=== PATIENT | female | born 1930 | race Caucasian/White ===

== ENCOUNTER 2016-09-05 11:24 | Inpatient (IN) | payer MEDICARE, OTHER ==
[2016-09-05] VITALS (11 sets, daily range): BP systolic 123–155; BP diastolic 67–86; PULSE 72–88; RESP 16–20; O2SAT 85–97
[~2016-09-05] VITALS: Ht 167.6 cm; Wt 58.6 kg
[~2016-09-05 11:24] MED LIST: ACIDOPHILUS PROB1 M1 PO; ALBU8.5H2 INHALATION; ASCO100089 PO; ASPI-973 PO; ATOR10TA66 PO; CA C1TAB35 PO; CARV25TA2 PO; Hydrocortisone TOPICAL; LEVO500T16 PO; LOSA50TA37 PO; Loratadine PO; MULT-1052 PO; OMEP20CA11 PO; PRED-508 PO; SALM1CAP4 PO; SIME180C36 PO; VIT1CAPS27 PO
--- NOTE | 2016-09-05 11:38 | ED.REPORT ---
HPI-General Illness Date of Service Sep 05, 2016 ED Provider: Luis Alberto Jain DO 85 year old female with a history of cardiomyopathy and cardiac catheterization presents to the ER complaining of several months of shortness of breath. Symptoms are exacerbated by minimal exertion. She reports a bout of pneumonia in May 2016, and states that she has had difficulty breathing ever since. Patient denies productive cough, fever, chest pain, atypical lower extremity swelling, abdominal pain, nausea, vomiting, diarrhea, and UTI symptoms. She was seen by her PCP Dr. Gant earlier today, who referred her to the ER after noticing new LBBB on her ECG. Dr. Gant also reports decreased O2 saturation in the 80's with ambulation. Nursing Notes Stated Complaint: SOB Chief Complaint: Respiratory Complaints Nursing Notes Reviewed: Yes Allergies: Coded Allergies: Contrast Media (Verified Allergy, Severe, "red, itchy", 09/05/16) adhesive tape (Verified Allergy, Severe, RASH, 09/05/16) lisinopril (Verified Adverse Reaction, Severe, cough, 09/05/16) Scheduled Ascorbic Acid (Vitamin C) 1,000 Mg Tab.chew 1,000 MG PO DAILY Aspirin (Aspirin) 81 Mg Tablet 81 MG PO DAILYWD Atorvastatin Calcium (Atorvastatin Calcium) 10 Mg Tablet 10 MG PO HS Ca Carb/D3/Argnin/Inos/Silicon (Bone Density Calcium + D Cplt) 1 Each Tablet 3 EACH PO DAILY Carvedilol (Carvedilol) 25 Mg Tablet 25 MG PO BID Lactobacillus Acidophilus (Acidophilus Probiotic) 1 Mg Tablet 1 MG PO DAILY Losartan Potassium (Losartan Potassium) 50 Mg Tablet 50 MG PO BID Multivit-Min/FA/Lutein/Zeaxant (Macular Vitamin Tablet) 1 Each Tablet 2 EACH PO BID [place] Oil/[place]-3 Fatty Acids ([place] Oil 1,000 mg Softgel) 1 Each Capsule 1 EACH PO DAILY Ubidecarenone (Coq-10) 100 Mg Capsule 100 MG PO DAILY Vit C/Kiara AC/Lut/Copper/Znox (Preservision Lutein Softgel) 1 Each Capsule 1 EACH PO BID Scheduled PRN Fluticasone Propionate (Fluticasone Propionate Nasal) 16 Gm [place].susp 1 SPRAY NASAL DAILY PRN PRN allergies Omeprazole (Omeprazole) 20 Mg Capsule.dr 20 MG PO DAILY PRN PRN For Indigestion Simethicone (Gas Relief) 180 Mg Capsule 180 MG PO BID PRN PRN GAS General Time Seen by MD: 11:33 Chief Complaint Breathing problem Hx Obtained From: Patient Arrived By: Walk-in Sudden in Onset?: No Onset Occurred: More than a week ago... (5 months) Symptom Duration: Intermittent Associated with: Denies: Abdominal pain, Cough, Fever, Nausea, Vomiting Pertinent Negative: Pt denies other symptoms Similar Sx Previous: Yes Past Medical History Past Medical History R knee arthritis Cardiomyopathy Reports: GERD, Hyperlipidemia Past Surgical History Cardiac catheterization Smoking History Former Smoker Ambulatory Status Independent Review of Systems Full Review of Systems Constitutional: Denies: Chills, Fever Respiratory: Reports: Dyspnea on exertion, Shortness of breath, Denies: Non-productive cough, Prod cough, bloody, Prod cough, brown, Prod cough, clear, Prod cough, green, Prod cough, white, Prod cough, yellow Cardiovascular: Denies: Chest pain GI: Denies: Abdominal pain, Diarrhea, Nausea, Vomiting Female: Denies: Dysuria, Flank pain, Pelvic pain, Urinary frequency, Urinary urgency, Vaginal bleeding - abnl, Vaginal discharge Musculoskeletal: Denies: Extremity swelling Complete sys rev & neg: except as marked. Physical Exam Vital Signs Vital Signs Date Time Temp Pulse Resp B/P Pulse Ox O2 Delivery O2 Flow Rate FiO2 09/05/16 14:47 93 Nasal Cannula 3 09/05/16 14:46 74 19 85 Room Air 09/05/16 14:00 36.8 76 20 136/76 94 Room Air 09/05/16 11:37 36.8 80 17 146/86 97 Room Air Initial VS: Reviewed Head / Eyes: Atraumatic, Normocephalic Neck: Supple, Non-tender, Full range of motion Abdomen / GI: Soft, Non-tender, No guarding, No rebound, No distention Extremities: Vascular intact, Neuro intact, No swelling, No tenderness Skin: Warm, Dry, No cyanosis Neurologic: Alert, Oriented, Nonfocal Psychiatric: Mood/affect normal, Behavior normal, Normal thought content General/Constitutional: Awake, Alert, Well developed, Well nourished Respiratory / Chest: Breath sounds NL, No respiratory distress, No rhonchi, No wheezing Faint rales in the left lung base. Cardiovascular: Heart rate NL, Regular rhythm, Heart sounds NL, Cap refill not delayed, Peripheral circulation NL Interpretation & Diagnostics Lab Results Interpretation Result Diagram: 09/05/16 1255 09/05/16 1255 Test 09/05/16 12:55 09/05/16 13:37 White Blood Count 7.5th/mm3 (3.8-10.1) Red Blood Count 4.41mil/mm3 (3.90-5.20) Hemoglobin 13.0g/dL (12.0-15.6) Hematocrit 41.5% (35.0-46.0) Mean Corpuscular Volume 94.1fL (81-100) Mean Corpuscular Hemoglobin 29.5pg (27.0-35.0) Mean Corpuscular Hemoglobin Concent 31.3% (32.0-37.0) Red Cell Distribution Width 15.6% (12.3-15.4) Platelet Count 121bil/L (150-400) Neutrophils (%) (Auto) 64.1% (40-74) Lymphocytes (%) (Auto) 28.0% (14-46) Monocytes (%) (Auto) 6.0% (4-12) Eosinophils (%) (Auto) 1.1% (0-5) Basophils (%) (Auto) 0.4% (0-3) D-Dimer 0.76mg/L FEU (<0.50) Sodium Level 142mEq/L (134-144) Potassium Level 4.2mEq/L (3.5-5.2) Chloride Level 104mEq/L (97-108) Carbon Dioxide Level 29mmol/L (18-29) Blood Urea Nitrogen 17mg/dL (8-27) Creatinine 0.48mg/dL (0.57-1.00) Estimat Glomerular Filtration Rate 175mL/min (>59) Glucose Level 91mg/dL (60-99) Calcium Level 8.7mg/dL (8.5-10.1) Magnesium Level 2.1mg/dL (1.6-2.6) Total Bilirubin 1.1mg/dL (0.0-1.2) Aspartate Amino Transf (AST/SGOT) 28U/L (0-50) Alanine Aminotransferase (ALT/SGPT) 25U/L (0-32) Alkaline Phosphatase 70U/L (25-165) Troponin T < 0.010ug/L (0.0-0.011) Pro-B-Type Natriuretic Peptide 2454pg/mL (0-738) Total Protein 6.2g/dL (6.4-8.4) Albumin 3.7g/dL (3.4-5.0) Procalcitonin 0.03ng/mL (0.00-0.08) Hold Urine Received (Received) ECG Interpretation ECG Interpretation: Sinus rhythm LVH Lateral ST depressions Time: 11:59 Interpreted by: ED physician X-Ray Chest Interpretation Chest Xray Interpretation: IMPRESSION: Mild cardiomegaly and left basilar atelectasis. Dictated by: Pili Jean M.D. on 09/05/2016 at 12:25 Approved by: Pili Jean M.D. on 09/05/2016 at 12:26 View: AP & lat Interpretation / Wet Read by: Interpret - Radiologist CT Chest Interpretation IMPRESSION: 1. No evidence for central pulmonary embolism. 2. A 2.9 x 2.8 cm mass or masslike infiltrate in the right upper lobe. Differential diagnoses include pneumonia and neoplasm (adenocarcinoma in situ). Recommend short interval followup CT after adequate treatment. If the abnormality persists, a PET/CT may be helpful for further evaluation. 3. Moderate emphysema. 4. Small pleural effusions and bibasilar atelectasis. 5. Heterogeneous appearance of thyroid gland is a calcified nodule. Recommend non-emergent thyroid ultrasound for further evaluation. 6. Mild cardiomegaly. Dictated by: Pili Jean M.D. on 09/05/2016 at 14:37 Approved by: Pili Jean M.D. on 09/05/2016 at 14:55 Study type: CT pulm angiogram Interpretation / Wet Read by: Interpret - Radiologist Re-Eval/Medical Decision Med Decision/Clinical Course Likely multifactorial hypoxia, question of a mass or masslike infiltrate in the right upper lobe, for this Rocephin and azithromycin given, patient also has a known cardiomyopathy with elevated proBNP as well as emphysematous changes on CT. Patient will be admitted for further delineation as to the cause of her hypoxia. It should be noted that she had an allergic reaction to IV contrast after receiving a CT of her chest. It was a diffuse urticarial rash of her chest and arms which improved significantly after treatment with Benadryl. Source of Hx: Old records Time of Eval: 14:44 Re-Evaluation/Progress Note: O2 saturation 86% at rest. Updated patient on the plan of care and need for admission. Patient is amenable to the plan. All other questions addressed. Time of Eval: 14:52 Re-Evaluation/Progress Note: Diffuse urticaria to the chest and arms. Patient denies any throat discomfort, respiratory distress, and itching. Time of Eval: 14:57 Evaluation: Capillary refill normal, Normal peripheral pulses, Lungs clear, Mental status normal, Neurologic nonfocal Time of Eval: 15:14 Re-Evaluation/Progress Note: Her rash is not worsening. Time of Eval: 15:36 Re-Evaluation/Progress Note: Patient's rash is improved. Consultation : Referral / Consult Name: Nata Redman DO Consulted With: Hospitalist Call Returned at: 16:00 Nursing Admin: Agrees with eval, Agrees with plan, Accepts admit Counseled Regarding: Diagnosis, Lab results, Need for admission Discharge & Departure Primary Impression: Hypoxia Disposition: ADMITTED TO HOSPITAL Discharge Condition All VS Reviewed: Yes Condition: Stable Referrals: Emy Gant MD (PCP) Serena[place]wyatt Attestation Portions of this note were transcribed by Glenis Becker. I, Dr. Jain, personally performed the history, physical exam and medical decision-making; I reviewed and confirmed the accuracy of the information in the transcribed note. Signed by: Lea Bowles, 09/05/2016 and 16:02 copies to: Emy Gant MD, Timothy S DO Sep 05, 2016 11:38 GLENIS BECKER Sep 05, 2016 11:46
--- NOTE | 2016-09-05 12:27 | DRSVH ---
PROCEDURE: X-RAY CHEST, TWO VIEWS ([id number]) INDICATIONS: dyspnea on exertion TECHNIQUE: 2 views of the chest were acquired. COMPARISON: [facility], CR, XR CHEST 2VW, 07/01/2016, 10:13. FINDINGS: Surgical changes and devices: None. Lungs and pleura: Left basilar atelectasis and bilateral interstitial prominence. No pleural effusio ns or pneumothorax. Lungs are clear. Mediastinum: Mediastinal contours are normal. Heart size is prominent. Bones and chest wall: No suspicious bony abnormalities. Soft tissues appear unremarkable. IMPRESSION: Mild cardiomegaly and left basilar atelectasis. Dictated by: Pili Jean M.D. on 09/05/2016 at 12:25 Approved by: Pili Jean M.D. on 09/05/2016 at 12:26
[2016-09-05 13:11] LABS: BASOPHILS % (AUTO) 0.4 % (0-3); EOSINOPHILS % (AUTO) 1.1 % (0-5); Mean Corpuscular Hemoglobin 29.5 pg (27.0-35.0); Mean Corpuscular Volume 94.1 fL (81-100); NEUTROPHILS % (AUTO) 64.1 % (40-74); Platelet Count 121 bil/L (150-400)
[2016-09-05 13:43] LABS: Magnesium 2.1 mg/dL (1.6-2.6); TROPONIN T < 0.010 ug/L (0.0-0.011)
[2016-09-05] MEDS ORDERED: Famotidine 10 mg/mL 2 mL Inj IVPUSH ONE (14:55)
[2016-09-05] MEDS ORDERED: MethylprednisoLONE Sodium Succinate 62.5 mg/mL 2 mL Inj IVPUSH ONE (14:55)
[2016-09-05] MEDS ORDERED: diphenhydrAMINE 25 mg Capsule PO ONE (14:55)
--- NOTE | 2016-09-05 14:57 | DRSVH ---
PROCEDURE: CT ANGIO CHEST PULMONARY EMBOLISM ([id number]) INDICATIONS: dyspnea, elevated troponin TECHNIQUE: After the administration of intravenous contrast, 2 mm thick sections acquired from the pulmonary api rashard to the posterior costophrenic angles. 3-dimensional maximum intensity projection (MIP) coronal a nd sagittal reformats were then acquired through the thorax. For radiation dose reduction, the follo wing was used: automated exposure control, adjustment of mA and/or kV according to patient size. COMPARISON: [facility], CR, XR CHEST 2VW, 09/05/2016, 12:03. [facility], CT, CT ANGIO CHEST PE, 05/29/2016, 14:55. FINDINGS: Image quality: Excellent. Pulmonary arteries: Pulmonary arteries are normal in size, and demonstrate no intraluminal filling d efects to suggest central pulmonary embolism. Lungs and pleura: There is a mass or masslike infiltrate in the right upper lobe medially measuring 2 .9 x 2.8 cm, which is unchanged from . There is moderate centrilobular emphysema. There is a small pleural effusions. Bibasilar opacities are most likely atelectasis. No pleural effusions or p neumothorax. Central and peripheral airways are patent. Mediastinum: Heart is probably enlarged. No pericardial effusion. No mediastinal or hilar adenopath y. Thoracic aorta is normal in caliber and enhancement. Esophagus is normal in caliber, without hia dawood hernia. Bones and chest wall: No suspicious bony lesions. Ribs and thoracic spine appear intact throughout. Thyroid gland is heterogeneous. There is a calcified nodule in the right lower lobe. No axillary o r supraclavicular adenopathy. Abdomen: Visualized upper abdominal solid organs appear normal in the early arterial phase of enhanc ement. IMPRESSION: 1. No evidence for central pulmonary embolism. 2. A 2.9 x 2.8 cm mass or masslike infiltrate in the right upper lobe. Differential diagnoses include pneumonia and neoplasm (adenocarcinoma in situ). Recommend short interval followup CT after adequate treatment. If the abnormality persists, a PET/CT may be helpful for further evaluation. 3. Moderate emphysema. 4. Small pleural effusions and bibasilar atelectasis. 5. Heterogeneous appearance of thyroid gland is a calcified nodule. Recommend non-emergent thyroid ul trasound for further evaluation. 6. Mild cardiomegaly. Dictated by: Pili Jean M.D. on 09/05/2016 at 14:37 Approved by: Pili Jean M.D. on 09/05/2016 at 14:55
[2016-09-05] MEDS ORDERED: Furosemide 10 mg/mL 2 mL Inj IVPUSH ONE ×2 (15:15→15:40)
[2016-09-05] MEDS ORDERED: Albuterol 2.5 mg/3 mL Inhalation Solution NEB ONE (15:15)
[2016-09-05] MEDS ORDERED: Azithromycin Inj 500 MG in Dextrose 5% w/Vial Mate 250 ML IV ONE (15:15)
[2016-09-05] MEDS ORDERED: cefTRIAXone Inj 1,000 MG in Dextrose 5% Minibag Plus 50 ML IV ONE (15:15)
[2016-09-05] MEDS ORDERED: Famotidine 20 mg/50 mL NS Premix IV ONE (15:40)
[2016-09-05] MEDS ORDERED: Furosemide 10 mg/mL 4 mL Inj ONE (15:52)
[2016-09-05] MEDS ORDERED: Alum-Mag Hydrox-Simeth 30 mL Suspension PO PRN (16:10)
[2016-09-05] MEDS ORDERED: Ondansetron 2 mg/mL 2 mL Inj IVPUSH PRN (16:10)
[2016-09-05] MEDS ORDERED: FLUT16SP NASAL (16:17)
[2016-09-05] MEDS ORDERED: UBID100C16 PO (16:17)
[2016-09-05] MEDS: Sodium Chloride LOK Flush 10 mL Syringe IVFLUSH SCH (17:25)
[2016-09-05] MEDS ORDERED: Polyethylene Glycol (PEG) 17 Gm Powder PO PRN (17:25)
[2016-09-05] MEDS ORDERED: Albuterol 2.5 mg/3 mL Inhalation Solution NEB PRN (17:35)
[2016-09-05] MEDS ORDERED: Fluticasone 0.05% 15 Spray/2 Gm 16 Gm Nasal Spray NASAL PRN (17:35)
[2016-09-05] MEDS ORDERED: Furosemide 10 mg/mL 2 mL Inj IVPUSH SCH (18:00)
[2016-09-05 20:08] LABS: TROPONIN T < 0.010 ug/L (0.0-0.011)
[2016-09-05 20:12] LABS: Creatine Kinase 60 U/L (21-215)
--- NOTE | 2016-09-05 20:28 | PCM.HPMED ---
Subjective Date of Service Sep 05, 2016 Primary Provider: Admitting Physician: Nata Redman DO Primary Care Physician: Emy Gant MD Attending Physician: Nata Redman DO Admit Status: From the Emergency Department Chief Complaint: Exertional dyspnea and fatigue History of Present Illness: This is a 85-year-old female with past medical history of nonischemic dilated cardiomyopathy, recent pneumonia for which she is hospitalized here in May for 4 days, emphysema, GERD, hyperlipidemia, arthritis, mitral valve prolapse presenting to the ED with complaints of fatigue, exertional dyspnea, chest tightness. States that her symptoms have completely resolved after she completed a course of Levaquin from [facility]. She denies cough, back pain , orthopnea. She states her chest tightness is over her clavicle area. Denies numbness and tingling. Symptoms have been ongoing for approximately 1 week. Patient has taken a medications. She also denies fevers, chills, nausea, vomiting, diarrhea. In the ER chest x-ray showed cardiomegaly with bibasilar atelectasis, d-dimer was slightly elevated so CTA chest PE protocol was performed that showed no PE but did show some concern for bilateral effusions, thyroid nodule, right upper lobe mass or masslike size of 2.9 x 2.[address] scan follow-up is recommended. ProBNP is elevated 2000 454. Pro-calcitonin is not elevated at 0.03. Troponins are negative. Vital signs are stable EKG showed LVH, lateral ST depression patient is given 40 mg IV Lasix, Rocephin, Zithromax antibiotics. Patient states that he did not feel these medications quite helped her. Patient is a former smoker and she quit in 1971 after smoking for 20 years. She denies second hand smoking exposure. She does not believe she has COPD. Her echocardiogram was last performed on 10/13/2015 and showed an ejection fraction of 40-45% with diastolic dysfunction, LVH, mild global hypokinesis. A CTA PE protocol performed on 05/29/2016 showed moderate cardiomegaly, mild bibasilar pneumonia right and left. Her white count was normal in the ER. B UN is elevated at 17. Currently patient is resting comfortably in the room talking to relatives who came to visit. States that she has a POA and ST form that was filled out during her last visit but she does not have it with her. Patient is admitted to the [facility] for diastolic heart failure acute on chronic, and masslike findings on her CT of chest. Allergies Coded Allergies: Contrast Media (Verified Allergy, Severe, "red, itchy", 09/05/16) adhesive tape (Verified Allergy, Severe, RASH, 09/05/16) lisinopril (Verified Adverse Reaction, Severe, cough, 09/05/16) PMH Nonischemic dilated cardiomyopathy, pneumonia in May 2016, emphysema, GERD , lipidemia, arthritis, mitral valve prolapse, questionable irregular heart rate , hypertension Surgical History Cardiac catheterization, and knee replacement on the right side March 2016 Social History Hx Alcohol Use: Yes (has maybe 2 glasses of wine per month but none for the last 2 months) Hx Substance Use: No Hx Tobacco Use: No Smoking Status: Former Smoker Years of Smokin Living Arrangement: Alone Exam Vital Signs Vital Sign - Last Date Time Temp Pulse Resp B/P Pulse Ox O2 Delivery O2 Flow Rate FiO2 09/05/16 14:47 93 Nasal Cannula 3 09/05/16 14:46 74 19 09/05/16 14:00 36.8 136/76 Exam Gen.: No acute distress HEENT: Normocephalic, atraumatic Neck negative for JVD, thyromegaly Vascular: Negative for hepatojugular reflux Heart: Regular rate and rhythm negative for murmurs Abdomen soft, nontender normal bowel sounds Legs swelling in the right lower extremity Lungs right lower lobe and crackles negative for wheezing Neuro: No focal deficits Psychiatric negative for anxiety Lab and Diagnostics Labs Laboratory Tests Test 09/05/16 12:55 09/05/16 13:37 09/05/16 15:53 09/05/16 19:20 White Blood Count 7.5th/mm3 (3.8-10.1) Red Blood Count 4.41mil/mm3 (3.90-5.20) Hemoglobin 13.0g/dL (12.0-15.6) Hematocrit 41.5% (35.0-46.0) Mean Corpuscular Volume 94.1fL (81-100) Mean Corpuscular Hemoglobin 29.5pg (27.0-35.0) Mean Corpuscular Hemoglobin Concent 31.3% (32.0-37.0) Red Cell Distribution Width 15.6% (12.3-15.4) Platelet Count 121bil/L (150-400) Neutrophils (%) (Auto) 64.1% (40-74) Lymphocytes (%) (Auto) 28.0% (14-46) Monocytes (%) (Auto) 6.0% (4-12) Eosinophils (%) (Auto) 1.1% (0-5) Basophils (%) (Auto) 0.4% (0-3) D-Dimer 0.76mg/L FEU (<0.50) Sodium Level 142mEq/L (134-144) Potassium Level 4.2mEq/L (3.5-5.2) Chloride Level 104mEq/L (97-108) Carbon Dioxide Level 29mmol/L (18-29) Blood Urea Nitrogen 17mg/dL (8-27) Creatinine 0.48mg/dL (0.57-1.00) Estimat Glomerular Filtration Rate 175mL/min (>59) Glucose Level 91mg/dL (60-99) Calcium Level 8.7mg/dL (8.5-10.1) Magnesium Level 2.1mg/dL (1.6-2.6) Total Bilirubin 1.1mg/dL (0.0-1.2) Aspartate Amino Transf (AST/SGOT) 28U/L (0-50) Alanine Aminotransferase (ALT/SGPT) 25U/L (0-32) Alkaline Phosphatase 70U/L (25-165) Troponin T < 0.010ug/L (0.0-0.011) < 0.010ug/L (0.0-0.011) Pro-B-Type Natriuretic Peptide 2454pg/mL (0-738) Total Protein 6.2g/dL (6.4-8.4) Albumin 3.7g/dL (3.4-5.0) Procalcitonin 0.03ng/mL (0.00-0.08) Hold [place] Top Tube Received (Received) Received (Received) Hold Urine Received (Received) Total Creatine Kinase 60U/L (21-215) Creatine Kinase MB 2.4ng/mL (0.0-5.3) Creatine Kinase MB % % (0.0-5.0) Microbiology 09/05/16 Blood Culture, Received Pending Result Diagram: 09/05/16 1255 09/05/16 1255 X-Rays, CTs and MRIs [facility] Diagnostic [place] [address] Patient Name: KASSI WILLIS MR#: [id number] Location: [facility] [place] Ordering Phys: Susy LuisA lberto Pichardo Date of Service: 09/05/16 1342 PROCEDURE: CT ANGIO CHEST PULMONARY EMBOLISM ([id number]) INDICATIONS: dyspnea, elevated troponin TECHNIQUE: After the administration of intravenous contrast, 2 mm thick sections acquired from the pulmonary apices to the posterior costophrenic angles. 3-dimensional maximum intensity projection (MIP) coronal and sagittal reformats were then acquired through the thorax. For radiation dose reduction, the following was used: automated exposure control, adjustment of mA and/or kV according to patient size. COMPARISON: [facility], CR, XR CHEST 2VW, 09/05/2016, 12:03. [facility], CT, CT ANGIO CHEST PE, 05/29/2016, 14:55. FINDINGS: Image quality: Excellent. Pulmonary arteries: Pulmonary arteries are normal in size, and demonstrate no intraluminal filling defects to suggest central pulmonary embolism. Lungs and pleura: There is a mass or masslike infiltrate in the right upper lobe medially measuring 2.9 x 2.8 cm, which is unchanged from . There is moderate centrilobular emphysema. There is a small pleural effusions. Bibasilar opacities are most likely atelectasis. No pleural effusions or pneumothorax. Central and peripheral airways are patent. Mediastinum: Heart is probably enlarged. No pericardial effusion. No mediastinal or hilar adenopathy. Thoracic aorta is normal in caliber and enhancement. Esophagus is normal in caliber, without hiatal hernia. Bones and chest wall: No suspicious bony lesions. Ribs and thoracic spine appear intact throughout. Thyroid gland is heterogeneous. There is a calcified nodule in the right lower lobe. No axillary or supraclavicular adenopathy. Abdomen: Visualized upper abdominal solid organs appear normal in the early arterial phase of enhancement. IMPRESSION: 1. No evidence for central pulmonary embolism. 2. A 2.9 x 2.8 cm mass or masslike infiltrate in the right upper lobe. Differential diagnoses include pneumonia and neoplasm (adenocarcinoma in situ). Recommend short interval followup CT after adequate treatment. If the abnormality persists, a PET/CT may be helpful for further evaluation. 3. Moderate emphysema. 4. Small pleural effusions and bibasilar atelectasis. 5. Heterogeneous appearance of thyroid gland is a calcified nodule. Recommend non-emergent thyroid ultrasound for further evaluation. 6. Mild cardiomegaly. Dictated by: Pili Jean M.D. on 09/05/2016 at 14:37 Approved by: Pili Jean M.D. on 09/05/2016 at 14:55 [facility] Diagnostic [place] [address] Patient Name: KASSI WILLIS MR#: [id number] [place] [facility] [place] Ordering Phys: Luis Alberto Jain DO Date of Service: 09/05/16 1147 PROCEDURE: X-RAY CHEST, TWO VIEWS ([id number]) INDICATIONS: dyspnea on exertion TECHNIQUE: 2 views of the chest were acquired. COMPARISON: [facility], CR, XR CHEST 2VW, 07/01/2016, 10:13. FINDINGS: Surgical changes and devices: None. Lungs and pleura: Left basilar atelectasis and bilateral interstitial prominence. No pleural effusions or pneumothorax. Lungs are clear. Mediastinum: Mediastinal contours are normal. Heart size is prominent. Bones and chest wall: No suspicious bony abnormalities. Soft tissues appear unremarkable. IMPRESSION: Mild cardiomegaly and left basilar atelectasis. Dictated by: Pili Jean M.D. on 09/05/2016 at 12:25 Approved by: Pili Jean M.D. on 09/05/2016 at 12:26 Assessment & Plan This is a 85-year-old woman admitted due to concern for heart failure likely diastolic in nature, acute on chronic. She does have some findings on her CTA of chest suspicious for mass versus masslike infiltrate. She does not appear to have any infectious signs that she does not have elevated pro calcitonin no elevated white count no fevers. Acute diagnoses: Assessment #1 acute on chronic diastolic heart failure present on admission --Patient has a history of nonischemic dilated cardiomyopathy -- Lasix 20 mg IV twice a day --Morphine IV when necessary for dyspnea -- Trend troponins -- Telemonitoring -- Echocardiogram -- Nitro to person twice a day paste half inch every 6 hours -- Oxygen as needed -- Daily weights, accurate ins and outs, elevate head of the bed -- Consider cardiology consult after obtaining an echocardiogram -- Continue oxygen via mask so cannula as needed -- We will consider pulmonology consult regarding her findings on the CT of chest tomorrow a.m. -- Continue home aspirin, Coreg, losartan Assessment #2 chest tightness -- Cycle cardiac enzymes as above -- Telemonitoring -- Morphine and nitroglycerin orders -- Oxygen as needed Chronic diagnoses: #1 hypertension: Continue Coreg and losartan home medications #2 hyperlipidemia: Continue home atorvastatin, a.m. lipid panel #3 GERD: Pantoprazole 20 mg daily CODE STATUS: Full code, will request son to bring her by mouth LSD form that she filled out during her last admission Diet heart healthy IV fluids none Disposition: She will need a pulmonology consult, an echocardiogram and a positive cardiology consult based on the echocardiogram. Discharge to home in 2 -3 days GI Prophylaxis: Proton Pump Inhibitor Resuscitation Status: CPR: Attempt Resuscitation (patient did not bring by mouth Mary with her. Will request son to bring it per her last visit she asked to be full code) Nata Redman DO Sep 05, 2016 16:03
[2016-09-05] MEDS: Furosemide 10 mg/mL 2 mL Inj IVPUSH SCH (20:33)
[2016-09-05] MEDS: Nitroglycerin 2% 1 Gm Ointment TOPICAL SCH (20:34)
[2016-09-06] VITALS (12 sets, daily range): BP systolic 105–137; BP diastolic 57–77; PULSE 55–94; RESP 18; O2SAT 90–98
[2016-09-06] MEDS: Sodium Chloride LOK Flush 10 mL Syringe IVFLUSH SCH ×3 (01:44→15:55)
[2016-09-06 01:58] LABS: Creatine Kinase 54 U/L (21-215)
[2016-09-06] MEDS: Nitroglycerin 2% 1 Gm Ointment TOPICAL SCH ×4 (02:17→21:13)
[2016-09-06] MEDS: Furosemide 10 mg/mL 2 mL Inj IVPUSH SCH (06:11)
[2016-09-06 06:21] LABS: BASOPHILS % (AUTO) 0 % (0-3); EOSINOPHILS % (AUTO) 0 % (0-5); MONOCYTES % (AUTO) 3.9 % (4-12); Mean Corpuscular Hemoglobin 29.7 pg (27.0-35.0); Mean Corpuscular Volume 92.3 fL (81-100); NEUTROPHILS % (AUTO) 75.5 % (40-74); Platelet Count 125 bil/L (150-400)
[2016-09-06] MEDS ORDERED: Pantoprazole 20 mg ER24 Tablet PO PRN (06:30)
[2016-09-06] MEDS: [UNRECOGNIZED DRUG - OTHER] PO SCH ×2 (08:42→20:30)
[2016-09-06] MEDS: Ascorbic Acid 500 mg Tablet PO SCH (10:10)
[2016-09-06] MEDS: Calcium Carbonate (Oyster Shell) 500 mg Tablet PO SCH ×3 (10:10→18:09)
[2016-09-06] MEDS: Lactobacillus Rhamnosus 10 Bil Unit Capsule PO SCH (10:11)
[2016-09-06] MEDS ORDERED: Furosemide 10 mg/mL 2 mL Inj IVPUSH ONE (15:30)
--- NOTE | 2016-09-06 21:05 | PCM.PNMED ---
Subjective Date of Service Sep 06, 2016 Subjective Patient had a 6 beat V-tach yesterday. She reported history of irregular heart rate at the time of admission though she was positive she did not have atrial fibrillation. Patient states that Lasix yesterday helped her. She deniesi dyspnea. Exam Vital Signs Vital Sign - Last Date Time Temp Pulse Resp B/P Pulse Ox O2 Delivery O2 Flow Rate FiO2 09/06/16 02:22 95 OxyMask 3.00 09/06/16 02:08 36.4 64 18 111/62 Intake and Output 09/05/16 09/05/16 09/06/16 Cumulative From/Thru 15:00 23:00 07:00 09/05/16 11:37 - 09/06/16 00:17 Intake Total 350 ml 350 ml Output Total 800 ml 800 ml Balance -800 ml 350 ml -450 ml Intake IV Total 350 ml 350 ml Output Urine Total 800 ml 800 ml Exam GEneral : No acute distress Eyes: [place] conjunctivae. No ptosis Neck: No masses, trachea midline, no thyromegaly, negative for JVD Vasculature: Negative for JVD Lungs: Improved lung sounds CV: RRR, no murmurs/rubs/gallops, normal PMI GI: Soft, non-tender with no hepatosplenomegaly MSK: no digital cyanosis Skin: Warm and dry. No rash, lesions or ulcers Psych: A&O X3, with approprate affect IVs and Medications IV Fluids None Medications Reviewed: Medications were reviewed in detail Lab and Diagnostics Laboratory Tests Test 09/06/16 00:50 09/06/16 05:55 Total Creatine Kinase 54U/L (21-215) Creatine Kinase MB 2.1ng/mL (0.0-5.3) Creatine Kinase MB % % (0.0-5.0) Troponin T 0.010ug/L (0.0-0.011) White Blood Count 5.7th/mm3 (3.8-10.1) Red Blood Count 4.31mil/mm3 (3.90-5.20) Hemoglobin 12.8g/dL (12.0-15.6) Hematocrit 39.8% (35.0-46.0) Mean Corpuscular Volume 92.3fL (81-100) Mean Corpuscular Hemoglobin 29.7pg (27.0-35.0) Mean Corpuscular Hemoglobin Concent 32.2% (32.0-37.0) Red Cell Distribution Width 15.3% (12.3-15.4) Platelet Count 125bil/L (150-400) Neutrophils (%) (Auto) 75.5% (40-74) Lymphocytes (%) (Auto) 20.4% (14-46) Monocytes (%) (Auto) 3.9% (4-12) Eosinophils (%) (Auto) 0% (0-5) Basophils (%) (Auto) 0% (0-3) Sodium Level 142mEq/L (134-144) Potassium Level 3.8mEq/L (3.5-5.2) Chloride Level 101mEq/L (97-108) Carbon Dioxide Level 27mmol/L (18-29) Blood Urea Nitrogen 16mg/dL (8-27) Creatinine 0.53mg/dL (0.57-1.00) Estimat Glomerular Filtration Rate 156mL/min (>59) Glucose Level 126mg/dL (60-99) Calcium Level 8.8mg/dL (8.5-10.1) Total Bilirubin 1.3mg/dL (0.0-1.2) Aspartate Amino Transf (AST/SGOT) 25U/L (0-50) Alanine Aminotransferase (ALT/SGPT) 23U/L (0-32) Alkaline Phosphatase 65U/L (25-165) Total Protein 6.0g/dL (6.4-8.4) Albumin 3.6g/dL (3.4-5.0) Triglycerides Level 75mg/dL (0-149) Cholesterol Level 136mg/dL (100-199) LDL Cholesterol, Calculated 52.000mg/dL (0-99) VLDL Cholesterol 15.000mg/dL HDL Cholesterol 69mg/dL (>39) Cholesterol/HDL Ratio 1.97 (0.0-4.4) Microbiology 09/05/16 Blood Culture - Preliminary, Resulted NO GROWTH AFTER 24 HOURS Intake and Output 09/05/16 09/05/16 09/06/16 Cumulative From/Thru 15:00 23:00 07:00 09/05/16 11:37 - 09/06/16 06:42 Intake Total 650 ml 650 ml Output Total 800 ml 2430 ml 3230 ml Balance -800 ml -1780 ml -2580 ml Intake Oral 300 ml 300 ml IV Total 350 ml 350 ml Output Urine Total 800 ml 2430 ml 3230 ml # Bowel Movements 0 0 Result Diagram: 09/05/16 1255 09/05/16 1255 X-Rays, CTs and MRIs [facility] Diagnostic Imaging [place] [address] Patient Name: KASSI WILLIS MR#: [id number] Location: [facility] [place] Ordering Phys: Susy Luis Alberto Pichardo Date of Service: 09/05/16 1342 PROCEDURE: CT ANGIO CHEST PULMONARY EMBOLISM ([id number]) INDICATIONS: dyspnea, elevated troponin TECHNIQUE: After the administration of intravenous contrast, 2 mm thick sections acquired from the pulmonary apices to the posterior costophrenic angles. 3-dimensional maximum intensity projection (MIP) coronal and sagittal reformats were then acquired through the thorax. For radiation dose reduction, the following was used: automated exposure control, adjustment of mA and/or kV according to patient size. COMPARISON: [facility], CR, XR CHEST 2VW, 09/05/2016, 12:03. [facility], CT, CT ANGIO CHEST PE, 05/29/2016, 14:55. FINDINGS: Image quality: Excellent. Pulmonary arteries: Pulmonary arteries are normal in size, and demonstrate no intraluminal filling defects to suggest central pulmonary embolism. Lungs and pleura: There is a mass or masslike infiltrate in the right upper lobe medially measuring 2.9 x 2.8 cm, which is unchanged from . There is moderate centrilobular emphysema. There is a small pleural effusions. Bibasilar opacities are most likely atelectasis. No pleural effusions or pneumothorax. Central and peripheral airways are patent. Mediastinum: Heart is probably enlarged. No pericardial effusion. No mediastinal or hilar adenopathy. Thoracic aorta is normal in caliber and enhancement. Esophagus is normal in caliber, without hiatal hernia. Bones and chest wall: No suspicious bony lesions. Ribs and thoracic spine appear intact throughout. Thyroid gland is heterogeneous. There is a calcified nodule in the right lower lobe. No axillary or supraclavicular adenopathy. Abdomen: Visualized upper abdominal solid organs appear normal in the early arterial phase of enhancement. IMPRESSION: 1. No evidence for central pulmonary embolism. 2. A 2.9 x 2.8 cm mass or masslike infiltrate in the right upper lobe. Differential diagnoses include pneumonia and neoplasm (adenocarcinoma in situ). Recommend short interval followup CT after adequate treatment. If the abnormality persists, a PET/CT may be helpful for further evaluation. 3. Moderate emphysema. 4. Small pleural effusions and bibasilar atelectasis. 5. Heterogeneous appearance of thyroid gland is a calcified nodule. Recommend non-emergent thyroid ultrasound for further evaluation. 6. Mild cardiomegaly. Dictated by: Pili Jean M.D. on 09/05/2016 at 14:37 Approved by: Pili Jean M.D. on 09/05/2016 at 14:55 [facility] Diagnostic [place] [address] Patient Name: KASSI WILLIS MR#: [id number] Location: [facility] [place] Ordering Phys: Luis Alberto Jain DO Date of Service: 09/05/16 1147 PROCEDURE: X-RAY CHEST, TWO VIEWS ([id number]) INDICATIONS: dyspnea on exertion TECHNIQUE: 2 views of the chest were acquired. COMPARISON: [facility], CR, XR CHEST 2VW, 07/01/2016, 10:13. FINDINGS: Surgical changes and devices: None. Lungs and pleura: Left basilar atelectasis and bilateral interstitial prominence. No pleural effusions or pneumothorax. Lungs are clear. Mediastinum: Mediastinal contours are normal. Heart size is prominent. Bones and chest wall: No suspicious bony abnormalities. Soft tissues appear unremarkable. IMPRESSION: Mild cardiomegaly and left basilar atelectasis. Dictated by: Pili Jean M.D. on 09/05/2016 at 12:25 Approved by: Pili Jean M.D. on 09/05/2016 at 12:26 Assessment & Plan This is a 85-year-old woman admitted due to concern for heart failure likely diastolic in nature, acute on chronic. She does have some findings on her CTA of chest suspicious for mass versus masslike infiltrate. She does not appear to have any infectious signs that she does not have elevated pro calcitonin no elevated white count no fevers. Acute diagnoses: Assessment #1 acute on chronic diastolic heart failure present on admission --Patient has a history of nonischemic dilated cardiomyopathy -- Lasix increased to 40 mg IV twice a day, one time Lasix 40 IV's given --Morphine IV when necessary for dyspnea -- Trend troponins: Negative overnight -- Telemonitoring -- Echocardiogram -- Nitro to person twice a day paste half inch every 6 hours -- Oxygen as needed -- Daily weights, accurate ins and outs, elevate head of the bed -- echocardiogram showed slightly worse than the systolic heart function ejection fraction of 35+ or -5% moderate global hypokinesis of the ventricle, inferior lateral, inferior, mid to basal septal wall hypokinesis. Will consult cardiology if no improvement in symptoms tomorrow a.m. -- Continue oxygen via mask so cannula as needed -- We will consider pulmonology consult regarding her findings on the CT of chest tomorrow a.m.: Call them once, did not hear back. His touch base with them tomorrow -- Continue home aspirin, Coreg, losartan Assessment #2 chest tightness -- Cycle cardiac enzymes as above: Negative -- Telemonitoring -- Morphine and nitroglycerin orders -- Oxygen as needed Chronic diagnoses: #1 hypertension: Continue Coreg and losartan home medications #2 hyperlipidemia: Continue home atorvastatin, a.m. lipid panel #3 GERD: Pantoprazole 20 mg daily CODE STATUS: Full code, will request son to bring her by mouth LSD form that she filled out during her last admission Alternate Decision Maker: Minor Valero and Kalpesh Diet heart healthy IV fluids none Disposition: She will need a pulmonology consult, an echocardiogram and a positive cardiology consult based on the echocardiogram. Discharge to home in 1 -2 days GI Prophylaxis: Proton Pump Inhibitor VTE Mechanical Devices: Intermittant Pneumatic CD Resuscitation Status: CPR: Attempt Resuscitation (patient did not bring by mouth Mary with her. Will request son to bring it per her last visit she asked to be full code) Nata Redman DO Sep 06, 2016 05:30
[2016-09-07 01:12] VITALS: BP 125/63; PULSE 62; RESP 18; O2SAT 97
[2016-09-07] MEDS: Sodium Chloride LOK Flush 10 mL Syringe IVFLUSH SCH ×2 (01:19→08:14)
[2016-09-07] MEDS: Nitroglycerin 2% 1 Gm Ointment TOPICAL SCH ×2 (02:34→08:12)
[2016-09-07 02:37] VITALS: O2SAT 93
[2016-09-07 05:06] VITALS: BP 127/73; PULSE 67; RESP 18; O2SAT 96
[2016-09-07] MEDS ORDERED: Furosemide 10 mg/mL 2 mL Inj IVPUSH SCH (06:00)
[2016-09-07] MEDS: Ascorbic Acid 500 mg Tablet PO SCH (08:12)
[2016-09-07] MEDS: [UNRECOGNIZED DRUG - OTHER] PO SCH (08:14)
--- NOTE | 2016-09-07 09:06 | DRSVH ---
[facility] [address] [place] [address] Echocardiogram Report Name: KASSI WILLIS HStudy Date: 09/06/2016 Height: 66 in Hospital Exam Location: [facility] Weight: 135 lb Gender: Female BSA: 1.7 m2 : 1930 Age: 85 yrs BP: 119/59 mmHg Reason For Study: CHF Ordering Physician: HOSPITALIST [facility] Performed By: Eligio Urena Referring Physician: Dr. Je Cardenas Interpretation Summary Left ventricular wall thickness is mildly increased. Left ventricular ejection fraction is estimated to be 35 +/- 5%. Compared to the prior exam, left ventricular function is slightly decreased. There is moderate global hypokinesis of the left ventricle. Inferior, inferolateral, mid to basal septal walss are severely hypokinetic. There is mild mitral regurgitation. Mild atherosclerotic plaque(s) in the descending aorta. Mild atherosclerotic plaque(s) in the aortic arch. Procedure: A two-dimensional transthoracic echocardiogram with color flow and Doppler was performed. The study quality was technically good. Comparison is made with the echocardiogram of 10/13/15. The patient was in normal sinus rhythm during the exam. The patient had occasional PACs during the exam. Left Ventricle: The left ventricle is mildly dilated. Left ventricular wall thickness is mildly increased. There is no thrombus. Left ventricular ejection fraction is estimated to be 35 +/- 5%. Compared to the prior exam, left ventricular function is slightly decreased. There is moderate global hypokinesis of the left ventricle. Inferior, inferolateral, mid to basal septal walss are severely hypokinetic. Right Ventricle: The right ventricle is normal in size and function. Atria: The left atrium is moderately dilated. The right atrium is mildly dilated. The interatrial septum is intact with no evidence for an atrial septal defect. Mitral Valve: The mitral valve leaflets appear mildly thickened, but open well. There is mild to moderate mitral annular calcification. There is no evidence of mitral valve prolapse. There is mild mitral regurgitation. Aortic Valve: The aortic valve is slightly calcified. The aortic valve is trileaflet. The aortic valve opens well. No aortic regurgitation is present. Tricuspid Valve: The tricuspid valve is normal in structure and function. There is a trace or physiologic amount of tricuspid regurgitation. Pulmonary artery pressures cannot be estimated because of the lack of a measurable TR jet velocity. Pulmonic Valve: The pulmonic valve is normal in structure and function. There is trace pulmonic regurgitation. Great Vessels: The aortic root is normal size. The dimensions of the ascending aorta are normal. Mild atherosclerotic plaque(s) in the descending aorta. Mild atherosclerotic plaque(s) in the aortic arch. The pulmonary artery is normal size. The IVC is of normal diameter and collapses greater than 50% with a sniff. This suggests a low right atrial pressure of 3 mm Hg. Pericardium/ Pleura There is a trivial pericardial effusion noted. There are no echocardiographic indications of cardiac tamponade. There is no pleural effusion. MMode/2D Measurements & Calculations LVIDd: 6.0 cm LA dimension: 4.1 cm RA long axis: 5.6 cm Ao root diam LVIDs: 4.6 cm FS: 23.0 % LA A2 area: 23.3 cm RA area: 19.8 cm Aortic Jxn: 2.4 cm EPSS: 1.5 cm LA A4 area: 23.6 cm RA vol: 59.9 ml asc Aorta Diam IVSd: 1.1 cm LA length (vol) RA : 35.4 ml/m2 LVPWd: 1.1 cm Ao Arch Diam (Prox LA vol: 72.2 ml Trans): 2.3 cm LA vol index IVC diam: 1.8 cm EDV(MOD-sp2) LV alex. diameter/BSA LV sys. diameter/BSA : 151.9 ml (cm/m^2): 3.6 (cm/m^2): 2.7 Doppler Measurements & Calculations Ao V2 max MV E max grzegorz MV E/A: 0.59 PA V2 max: 82.3 cm/sec : 159.9 cm/sec : 50.2 cm/sec Med Peak E' Grzegorz PA mean P.6 mmHg Ao max PG MV A max grzegorz PA Accel Time: 0.13 sec : 10.2 mmHg : 84.7 cm/sec E/E' med: 18.2 Ao mean PG Lat Peak E' Grzegorz : 6.7 mmHg E/E' lat: 17.4 E/e' average Pulm A Revs Dur MV A dur: 0.12 sec MV dec time Ao V2 mean PA V2 mean Pulm A Revs Dur - MV A : 0.36 sec : 125.5 cm/sec : 60.4 cm/sec Dur: 0.00 msec Ao V2 VTI: 32.5 cmPA pr(Accel) : 14.1 mmHg Electronically signed by: Manuel Rosas on Reading Physician:09/06/2016 12:02 PM
[2016-09-07 09:21] VITALS: PULSE 90
[2016-09-07 09:50] VITALS: BP 81/46; PULSE 69; RESP 18; O2SAT 92
[2016-09-07] MEDS: Calcium Carbonate (Oyster Shell) 500 mg Tablet PO SCH ×2 (11:51→12:00)
[2016-09-07] MEDS: Lactobacillus Rhamnosus 10 Bil Unit Capsule PO SCH (11:51)
--- NOTE | 2016-09-07 14:33 | PCM.DIMED ---
Discharge Instructions Date of Service Sep 07, 2016 Dates of Hospitalization Sep 05, 2016 at 15:19 Discharge Diagnosis Discharge Diagnosis Acute on Chronic systolic CHF Exacerbation, non ischemic cardiomyopathy, COPD, Hypertension, hyperlipidemia Medication Instructions Please start Lasix 20 mg daily Diet Low fat, Low Sodium, Heart Healthy Activity No restrictions Call your provider Fever or Chills, Shortness of breath, Bleeding, Chest pain, Excessive diarrhea, Weakness (unilateral), Other Patient Instructions Please restrict salt in diet. Watch for weight gain, which may be an indication of fluid accumulation. Follow-up plan Please see your PCP Dr. Gant in one week. Please schedule follow up with [place] Clerk Dr. Mcbride in 1-2 weeks. f/u CT Scan of Chest to be ordered by the PCP in 6 weeks to check for the size of RUL mass-like finding on her CT scan during this admission. F/U CMP in one week, report results to the PCP, patient had a mild elevation in bilirubin,. she is asymptomatic from that stand point. Nata Redman DO Sep 07, 2016 14:33
[2016-09-07] MEDS ORDERED: FUR20 PO (14:40)
--- NOTE | 2016-09-07 22:18 | PCM.DC.MED ---
Discharge Summary Date of Service Sep 07, 2016 Dates of Hospitalization Date of Hospital Admission Sep 05, 2016 at 15:19 Date of Discharge: Sep 08, 2016 Providers: Admitting Physician: Nata Barajas DO Primary Care Physician: Eym Gant MD Attending Physician: Nata Barajas DO Diagnosis at Time of Discharge Diagnosis at Time of Discharge Acute on Chronic systolic CHF Exacerbation, non ischemic cardiomyopathy, COPD, Hypertension, hyperlipidemia Procedures XRay, CTs & MRIs [facility] [place] [address] Patient Name: KASSI WILLIS MR#: [id number] Location: [facility] [place] Ordering Phys: Luis Alberto Jain Date of Service: 09/05/16 1342 PROCEDURE: CT ANGIO CHEST PULMONARY EMBOLISM ([id number]) INDICATIONS: dyspnea, elevated troponin TECHNIQUE: After the administration of intravenous contrast, 2 mm thick sections acquired from the pulmonary apices to the posterior costophrenic angles. 3-dimensional maximum intensity projection (MIP) coronal and sagittal reformats were then acquired through the thorax. For radiation dose reduction, the following was used: automated exposure control, adjustment of mA and/or kV according to patient size. COMPARISON: [facility], CR, XR CHEST 2VW, 09/05/2016, 12:03. [facility], CT, CT ANGIO CHEST PE, 05/29/2016, 14:55. FINDINGS: Image quality: Excellent. Pulmonary arteries: Pulmonary arteries are normal in size, and demonstrate no intraluminal filling defects to suggest central pulmonary embolism. Lungs and pleura: There is a mass or masslike infiltrate in the right upper lobe medially measuring 2.9 x 2.8 cm, which is unchanged from . There is moderate centrilobular emphysema. There is a small pleural effusions. Bibasilar opacities are most likely atelectasis. No pleural effusions or pneumothorax. Central and peripheral airways are patent. Mediastinum: Heart is probably enlarged. No pericardial effusion. No mediastinal or hilar adenopathy. Thoracic aorta is normal in caliber and enhancement. Esophagus is normal in caliber, without hiatal hernia. Bones and chest wall: No suspicious bony lesions. Ribs and thoracic spine appear intact throughout. Thyroid gland is heterogeneous. There is a calcified nodule in the right lower lobe. No axillary or supraclavicular adenopathy. Abdomen: Visualized upper abdominal solid organs appear normal in the early arterial phase of enhancement. IMPRESSION: 1. No evidence for central pulmonary embolism. 2. A 2.9 x 2.8 cm mass or masslike infiltrate in the right upper lobe. Differential diagnoses include pneumonia and neoplasm (adenocarcinoma in situ). Recommend short interval followup CT after adequate treatment. If the abnormality persists, a PET/CT may be helpful for further evaluation. 3. Moderate emphysema. 4. Small pleural effusions and bibasilar atelectasis. 5. Heterogeneous appearance of thyroid gland is a calcified nodule. Recommend non-emergent thyroid ultrasound for further evaluation. 6. Mild cardiomegaly. Dictated by: Pili Jean M.D. on 09/05/2016 at 14:37 Approved by: Pili Jean M.D. on 09/05/2016 at 14:55 [facility] [place] [address] Patient Name: KASSI WILLIS MR#: [id number] Location: [facility] [place] Ordering Phys: Luis Alberto Jain DO Date of Service: 09/05/16 1342 PROCEDURE: CT ANGIO CHEST PULMONARY EMBOLISM ([id number]) INDICATIONS: dyspnea, elevated troponin TECHNIQUE: After the administration of intravenous contrast, 2 mm thick sections acquired from the pulmonary apices to the posterior costophrenic angles. 3-dimensional maximum intensity projection (MIP) coronal and sagittal reformats were then acquired through the thorax. For radiation dose reduction, the following was used: automated exposure control, adjustment of mA and/or kV according to patient size. COMPARISON: [facility], CR, XR CHEST 2VW, 09/05/2016, 12:03. [facility], CT, CT ANGIO CHEST PE, 05/29/2016, 14:55. FINDINGS: Image quality: Excellent. Pulmonary arteries: Pulmonary arteries are normal in size, and demonstrate no intraluminal filling defects to suggest central pulmonary embolism. Lungs and pleura: There is a mass or masslike infiltrate in the right upper lobe medially measuring 2.9 x 2.8 cm, which is unchanged from . There is moderate centrilobular emphysema. There is a small pleural effusions. Bibasilar opacities are most likely atelectasis. No pleural effusions or pneumothorax. Central and peripheral airways are patent. Mediastinum: Heart is probably enlarged. No pericardial effusion. No mediastinal or hilar adenopathy. Thoracic aorta is normal in caliber and enhancement. Esophagus is normal in caliber, without hiatal hernia. Bones and chest wall: No suspicious bony lesions. Ribs and thoracic spine appear intact throughout. Thyroid gland is heterogeneous. There is a calcified nodule in the right lower lobe. No axillary or supraclavicular adenopathy. Abdomen: Visualized upper abdominal solid organs appear normal in the early arterial phase of enhancement. IMPRESSION: 1. No evidence for central pulmonary embolism. 2. A 2.9 x 2.8 cm mass or masslike infiltrate in the right upper lobe. Differential diagnoses include pneumonia and neoplasm (adenocarcinoma in situ). Recommend short interval followup CT after adequate treatment. If the abnormality persists, a PET/CT may be helpful for further evaluation. 3. Moderate emphysema. 4. Small pleural effusions and bibasilar atelectasis. 5. Heterogeneous appearance of thyroid gland is a calcified nodule. Recommend non-emergent thyroid ultrasound for further evaluation. 6. Mild cardiomegaly. Dictated by: Pili Jean M.D. on 09/05/2016 at 14:37 Approved by: Pili Jean M.D. on 09/05/2016 at 14:55 [facility] [place] [address] Patient Name: KASSI WILLIS MR#: [id number] Location: [facility] [place] Ordering Phys: Luis Alberto Jain DO Date of Service: 09/05/16 1147 PROCEDURE: X-RAY CHEST, TWO VIEWS ([id number]) INDICATIONS: dyspnea on exertion TECHNIQUE: 2 views of the chest were acquired. COMPARISON: [facility], CR, XR CHEST 2VW, 07/01/2016, 10:13. FINDINGS: Surgical changes and devices: None. Lungs and pleura: Left basilar atelectasis and bilateral interstitial prominence. No pleural effusions or pneumothorax. Lungs are clear. Mediastinum: Mediastinal contours are normal. Heart size is prominent. Bones and chest wall: No suspicious bony abnormalities. Soft tissues appear unremarkable. IMPRESSION: Mild cardiomegaly and left basilar atelectasis. Dictated by: Pili Jean M.D. on 09/05/2016 at 12:25 Approved by: Pili Jean M.D. on 09/05/2016 at 12:26 Other Diagnostics [facility] [place] [address] Patient Name: KASSI WILLIS MR#: [id number] Location: [facility] [place] Ordering Phys: Nata Barajas DO Date of Service: 09/06/16 0530 [facility] [address] [place] [address] Echocardiogram Report Name: KASSI WILLIS HStudy Date: 09/06/2016 Height: 66 in Hospital Exam Location: [facility] Weight: 135 lb Gender: Female BSA: 1.7 m2 : 1930 Age: 85 yrs BP: 119/59 mmHg Reason For Study: CHF Ordering Physician: HOSPITALIST SV Performed By: Eligio Urena Referring Physician: Dr. Je Cardenas Interpretation Summary Left ventricular wall thickness is mildly increased. Left ventricular ejection fraction is estimated to be 35 +/- 5%. Compared to the prior exam, left ventricular function is slightly decreased. There is moderate global hypokinesis of the left ventricle. Inferior, inferolateral, mid to basal septal walss are severely hypokinetic. There is mild mitral regurgitation. Mild atherosclerotic plaque(s) in the descending aorta. Mild atherosclerotic plaque(s) in the aortic arch. Procedure: A two-dimensional transthoracic echocardiogram with color flow and Doppler was performed. The study quality was technically good. Comparison is made with the echocardiogram of 10/13/15. The patient was in normal sinus rhythm during the exam. The patient had occasional PACs during the exam. Left Ventricle: The left ventricle is mildly dilated. Left ventricular wall thickness is mildly increased. There is no thrombus. Left ventricular ejection fraction is estimated to be 35 +/- 5%. Compared to the prior exam, left ventricular function is slightly decreased. There is moderate global hypokinesis of the left ventricle. Inferior, inferolateral, mid to basal septal walss are severely hypokinetic. Right Ventricle: The right ventricle is normal in size and function. Atria: The left atrium is moderately dilated. The right atrium is mildly dilated. The interatrial septum is intact with no evidence for an atrial septal defect. Mitral Valve: The mitral valve leaflets appear mildly thickened, but open well. There is mild to moderate mitral annular calcification. There is no evidence of mitral valve prolapse. There is mild mitral regurgitation. Aortic Valve: The aortic valve is slightly calcified. The aortic valve is trileaflet. The aortic valve opens well. No aortic regurgitation is present. Tricuspid Valve: The tricuspid valve is normal in structure and function. There is a trace or physiologic amount of tricuspid regurgitation. Pulmonary artery pressures cannot be estimated because of the lack of a measurable TR jet velocity. Pulmonic Valve: The pulmonic valve is normal in structure and function. There is trace pulmonic regurgitation. Great Vessels: The aortic root is normal size. The dimensions of the ascending aorta are normal. Mild atherosclerotic plaque(s) in the descending aorta. Mild atherosclerotic plaque(s) in the aortic arch. The pulmonary artery is normal size. The IVC is of normal diameter and collapses greater than 50% with a sniff. This suggests a low right atrial pressure of 3 mm Hg. Pericardium/ Pleura There is a trivial pericardial effusion noted. There are no echocardiographic indications of cardiac tamponade. There is no pleural effusion. MMode/2D Measurements & Calculations LVIDd: 6.0 cm LA dimension: 4.1 cm RA long axis: 5.6 cm Ao root diam LVIDs: 4.6 cm FS: 23.0 % LA A2 area: 23.3 cm RA area: 19.8 cm Aortic Jxn: 2.4 cm EPSS: 1.5 cm LA A4 area: 23.6 cm RA vol: 59.9 ml asc Aorta Diam IVSd: 1.1 cm LA length (vol) RA : 35.4 ml/m2 LVPWd: 1.1 cm Ao Arch Diam (Prox LA vol: 72.2 ml Trans): 2.3 cm LA vol index IVC diam: 1.8 cm EDV(MOD-sp2) LV alex. diameter/BSA LV sys. diameter/BSA : 151.9 ml (cm/m^2): 3.6 (cm/m^2): 2.7 Doppler Measurements & Calculations Ao V2 max MV E max grzegorz MV E/A: 0.59 PA V2 max: 82.3 cm/sec : 159.9 cm/sec : 50.2 cm/sec Med Peak E' Grzegorz PA mean P.6 mmHg Ao max PG MV A max grzegorz PA Accel Time: 0.13 sec : 10.2 mmHg : 84.7 cm/sec E/E' med: 18.2 Ao mean PG Lat Peak E' Grzegorz : 6.7 mmHg E/E' lat: 17.4 E/e' average Pulm A Revs Dur MV A dur: 0.12 sec MV dec time Ao V2 mean PA V2 mean Pulm A Revs Dur - MV A : 0.36 sec : 125.5 cm/sec : 60.4 cm/sec Dur: 0.00 msec Ao V2 VTI: 32.5 cmPA pr(Accel) : 14.1 mmHg Electronically signed by: Manuel Rosas on Reading Physician:09/06/2016 12:02 PM Brief History This is a 85-year-old female with past medical history of nonischemic dilated cardiomyopathy, recent pneumonia for which she is hospitalized here in May for 4 days, emphysema, GERD, hyperlipidemia, arthritis, mitral valve prolapse presenting to the ED with complaints of fatigue, exertional dyspnea, chest tightness. States that her symptoms have completely resolved after she completed a course of Levaquin from [facility] [place]. She denies cough, back pain , orthopnea. She states her chest tightness is over her clavicle area. Denies numbness and tingling. Symptoms have been ongoing for approximately 1 week. Patient has taken a medications. She also denies fevers, chills, nausea, vomiting, diarrhea. In the ER chest x-ray showed cardiomegaly with bibasilar atelectasis, d-dimer was slightly elevated so CTA chest PE protocol was performed that showed no PE but did show some concern for bilateral effusions, thyroid nodule, right upper lobe mass or masslike size of 2.9 x 2.[address] scan follow-up is recommended. ProBNP is elevated 2000 454. Pro-calcitonin is not elevated at 0.03. Troponins are negative. Vital signs are stable EKG showed LVH, lateral ST depression patient is given 40 mg IV Lasix, Rocephin, Zithromax antibiotics. Patient states that he did not feel these medications quite helped her. Patient is a former smoker and she quit in 1971 after smoking for 20 years. She denies second hand smoking exposure. She does not believe she has COPD. Her echocardiogram was last performed on 10/13/2015 and showed an ejection fraction of 40-45% with diastolic dysfunction, LVH, mild global hypokinesis. A CTA PE protocol performed on 05/29/2016 showed moderate cardiomegaly, mild bibasilar pneumonia right and left. Her white count was normal in the ER. B UN is elevated at 17. Currently patient is resting comfortably in the room talking to relatives who came to visit. States that she has a POA and ST form that was filled out during her last visit but she does not have it with her. Patient is admitted to the [facility] for diastolic heart failure acute on chronic, and masslike findings on her CT of chest. Hospital Course This is a 85-year-old woman admitted due to concern for heart failure likely diastolic in nature, acute on chronic. She does have some findings on her CTA of chest suspicious for mass versus masslike infiltrate. She does not appear to have any infectious signs that she does not have elevated pro calcitonin no elevated white count no fevers. Acute diagnoses: Assessment #1 acute on chronic diastolic heart failure present on admission --Patient has a history of nonischemic dilated cardiomyopathy -- Lasix increased to 40 mg IV twice a day, one time Lasix 40 IV's given --Morphine IV when necessary for dyspnea -- Trend troponins: Negative overnight -- Telemonitoring -- Nitro to person twice a day paste half inch every 6 hours -- Oxygen as needed -- Daily weights, accurate ins and outs, elevate head of the bed -- echocardiogram showed slightly worse than the systolic heart function ejection fraction of 35+ or -5% moderate global hypokinesis of the ventricle, inferior lateral, inferior, mid to basal septal wall hypokinesis. Will consult cardiology if no improvement in symptoms tomorrow a.m. -- Continue oxygen via mask so cannula as needed -- contacted radiology regarding her findings on the CT of chest tomorrow a.m.: they feel her CTA lung mass-like finding can be followed up as outpatient. -- Continue home aspirin, Coreg, losartan -- Started patient on Lasix 20 mg PO QD Assessment #2 chest tightness -- Cycle cardiac enzymes as above: Negative -- Telemonitoring -- Morphine and nitroglycerin orders -- Oxygen as needed: Patient was saturating 88-92% w/o oxygen at the time of discharge Chronic diagnoses: #1 hypertension: Continue Coreg and losartan home medications #2 hyperlipidemia: Continue home atorvastatin, a.m. lipid panel #3 GERD: Pantoprazole 20 mg daily Exam Vital Signs (Last) Date Time Temp Pulse Resp B/P Pulse Ox O2 Delivery O2 Flow Rate FiO2 09/07/16 09:50 36.4 69 18 81/46 92 Room Air 09/07/16 05:06 1.00 Exam Gen.: No acute distress HEENT: normocephalic atraumatic Heart: Regular rate and rhythm, no S3-S4 murmurs Lungs: Clear to auscultation bilaterally no crackles or wheezes Abdomen: Soft nondistended Extremities: Negative for edema Neck: Negative for JVD Psych: Negative for anxiety Neuro: Negative for focal deficits Laboratory Tests Test 09/07/16 08:15 Sodium Level 142mEq/L (134-144) Potassium Level 3.7mEq/L (3.5-5.2) Chloride Level 96mEq/L (97-108) Carbon Dioxide Level 32mmol/L (18-29) Blood Urea Nitrogen 20mg/dL (8-27) Creatinine 0.62mg/dL (0.57-1.00) Estimat Glomerular Filtration Rate 130mL/min (>59) Glucose Level 154mg/dL (60-99) Calcium Level 9.5mg/dL (8.5-10.1) Microbiology 09/05/16 Blood Culture - Preliminary, Resulted No growth at 2 days; culture examined... Test 09/05/16 12:55 09/05/16 13:37 09/05/16 15:53 09/06/16 00:50 D-Dimer 0.76mg/L FEU (<0.50) Hemoglobin A1c 5.6% (4.8-5.6) Magnesium Level 2.1mg/dL (1.6-2.6) Pro-B-Type Natriuretic Peptide 2454pg/mL (0-738) Procalcitonin 0.03ng/mL (0.00-0.08) Hold Urine Received (Received) Hold Collins Top Tube Received (Received) Total Creatine Kinase 54U/L (21-215) Creatine Kinase MB 2.1ng/mL (0.0-5.3) Creatine Kinase MB % % (0.0-5.0) Troponin T 0.010ug/L (0.0-0.011) Test 09/06/16 05:55 09/07/16 08:15 White Blood Count 5.7th/mm3 (3.8-10.1) Red Blood Count 4.31mil/mm3 (3.90-5.20) Hemoglobin 12.8g/dL (12.0-15.6) Hematocrit 39.8% (35.0-46.0) Mean Corpuscular Volume 92.3fL (81-100) Mean Corpuscular Hemoglobin 29.7pg (27.0-35.0) Mean Corpuscular Hemoglobin Concent 32.2% (32.0-37.0) Red Cell Distribution Width 15.3% (12.3-15.4) Platelet Count 125bil/L (150-400) Neutrophils (%) (Auto) 75.5% (40-74) Lymphocytes (%) (Auto) 20.4% (14-46) Monocytes (%) (Auto) 3.9% (4-12) Eosinophils (%) (Auto) 0% (0-5) Basophils (%) (Auto) 0% (0-3) Total Bilirubin 1.3mg/dL (0.0-1.2) Aspartate Amino Transf (AST/SGOT) 25U/L (0-50) Alanine Aminotransferase (ALT/SGPT) 23U/L (0-32) Alkaline Phosphatase 65U/L (25-165) Total Protein 6.0g/dL (6.4-8.4) Albumin 3.6g/dL (3.4-5.0) Triglycerides Level 75mg/dL (0-149) Cholesterol Level 136mg/dL (100-199) LDL Cholesterol, Calculated 52.000mg/dL (0-99) VLDL Cholesterol 15.000mg/dL HDL Cholesterol 69mg/dL (>39) Cholesterol/HDL Ratio 1.97 (0.0-4.4) Sodium Level 142mEq/L (134-144) Potassium Level 3.7mEq/L (3.5-5.2) Chloride Level 96mEq/L (97-108) Carbon Dioxide Level 32mmol/L (18-29) Blood Urea Nitrogen 20mg/dL (8-27) Creatinine 0.62mg/dL (0.57-1.00) Estimat Glomerular Filtration Rate 130mL/min (>59) Glucose Level 154mg/dL (60-99) Calcium Level 9.5mg/dL (8.5-10.1) Microbiology Results Laboratory Tests Test 09/05/16 13:37 Hold Urine Received Discharge Medications Discharge Medications Ascorbic Acid (Vitamin C) 1,000 Mg Tab.chew 1,000 MG PO DAILY (Reported) Aspirin (Aspirin) 81 Mg Tablet 81 MG PO DAILYWD (Reported) Atorvastatin Calcium (Atorvastatin Calcium) 10 Mg Tablet 10 MG PO HS (Reported) Ca Carb/D3/Argnin/Inos/Silicon (Bone Density Calcium + D Cplt) 1 Each Tablet 3 EACH PO DAILY (Reported) Carvedilol (Carvedilol) 25 Mg Tablet 25 MG PO BID (Reported) Furosemide (Furosemide) 20 Mg Tab 20 MG PO DAILY Prescribed by: NATA BARAJAS DO Lactobacillus Acidophilus (Acidophilus Probiotic) 1 Mg Tablet 1 MG PO DAILY Prescribed by: VINITA HENDRICKSON MD Losartan Potassium (Losartan Potassium) 50 Mg Tablet 50 MG PO BID (Reported) Multivit-Min/FA/Lutein/Zeaxant (Macular Vitamin Tablet) 1 Each Tablet 2 EACH PO BID (Reported) [place] Oil/[place]lin-3 Fatty Acids ([place] Oil 1,000 mg Softgel) 1 Each Capsule 1 EACH PO DAILY (Reported) Ubidecarenone (Coq-10) 100 Mg Capsule 100 MG PO DAILY (Reported) Vit C/Kiara AC/Lut/Copper/Znox (Preservision Lutein Softgel) 1 Each Capsule 1 EACH PO BID (Reported) As needed Fluticasone Propionate (Fluticasone Propionate Nasal) 16 Gm Cowan.susp 1 SPRAY NASAL DAILY PRN PRN allergies (Reported) Omeprazole (Omeprazole) 20 Mg Capsule.dr 20 MG PO DAILY PRN PRN For Indigestion (Reported) Simethicone (Gas Relief) 180 Mg Capsule 180 MG PO BID PRN PRN GAS (Reported) Additional med instructions Please start Lasix 20 mg daily Followup Plan Follow-up plan Please see your PCP Dr. Gant in one week. Please schedule follow up with Technical Communication Teacher Dr. Mcbride in 1-2 weeks. f/u CT Scan of Chest to be ordered by the PCP in 6 weeks to check for the size of RUL mass-like finding on her CT scan during this admission. F/U CMP in one week, report results to the PCP, patient had a mild elevation in bilirubin,. she is asymptomatic from that stand point. Discharge Diet: Low fat, Low Sodium, Heart Healthy Discharge Activity: No restrictions Patient Instructions Please restrict salt in diet. Watch for weight gain, which may be an indication of fluid accumulation. Nata Barajas DO Sep 07, 2016 22:18
[2016-11-07] MEDS ORDERED: FAMO20T PO (14:30)
[2016-11-07] MEDS ORDERED: PRE20 PO (14:30)
== END 2016-09-07 15:12 | disposition home or self-care (01) | DRG 292 ==
LOC: SED 11:24 → MPC 15:19
PROVIDERS: ADMIT Family Medicine; ATTEND Family Medicine
DX: I50.33 Acute on chronic diastolic (congestive) heart failure (principal); I42.0 Dilated cardiomyopathy; I51.7 Cardiomegaly; E78.5 Hyperlipidemia, unspecified; K21.9 Gastro-esophageal reflux disease without esophagitis; Z87.891 Personal history of nicotine dependence; I10 Essential (primary) hypertension

== ENCOUNTER 2016-11-08 00:20 | Day surgery (SDC) | payer MEDICARE, OTHER ==
[2016-11-08] VITALS (15 sets, daily range): BP systolic 120–155; BP diastolic 60–94; PULSE 60–76; RESP 12–18; O2SAT 91–94
[~2016-11-08] VITALS: Ht 167.6 cm; Wt 65.0 kg
[~2016-11-08 00:20] MED LIST changes: -ALBU8.5H2 INHALATION; +FAMO20T PO; +FLUT16SP NASAL; +FUR20 PO; -Hydrocortisone TOPICAL; -LEVO500T16 PO; -Loratadine PO; +PRE20 PO; -PRED-508 PO; +UBID100C16 PO
[2016-11-08 08:54] LABS: BASOPHILS % (AUTO) 0.1 % (0-3); EOSINOPHILS % (AUTO) 0 % (0-5); MONOCYTES % (AUTO) 1.3 % (4-12); Mean Corpuscular Hemoglobin 30.6 pg (27.0-35.0); Mean Corpuscular Volume 96.4 fL (81-100); NEUTROPHILS % (AUTO) 87.6 % (40-74); Platelet Count 155 bil/L (150-400)
[2016-11-08 09:13] LABS: INR 1.06 ratio
[2016-11-08] MEDS ORDERED: DIPH25CA6 PO (09:48)
[2016-11-08] MEDS ORDERED: Vancomycin 1,000mg/200 mL NS IV ONE (09:50)
--- NOTE | 2016-11-08 10:06 | NUR ---
Admitted today for a pacemaker for SSS. Pt has noted > difficulty breathing, but a recent admission this Spring,she was started on a diuretic and those symptoms have improved, but she still has SOB and fatigue. 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
[2016-11-08] MEDS ORDERED: Heparin 10,000 Unit/1,000 mL NS Premix IV ONE (10:19)
[2016-11-08] MEDS ORDERED: 0.9% Sodium Chloride 250 ML ONE (10:20)
[2016-11-08] MEDS ORDERED: Vancomycin 1,000 mg Inj ONE (10:20)
[2016-11-08] MEDS ORDERED: Bupivacaine-MPF 0.5% 30 mL Inj ONE (10:21)
[2016-11-08] MEDS ORDERED: fentaNYL-PF 50 mCg/mL 2 mL Inj ONE ×2 (10:54→13:16)
[2016-11-08] MEDS ORDERED: Vancomycin 1 Gm/200 mL NS Premix IV SCH (11:04)
[2016-11-08] MEDS: 0.9% Sodium Chloride 1,000 ML IV SCH (14:16)
[2016-11-08] MEDS ORDERED: Ondansetron 2 mg/mL 2 mL Inj IVPUSH PRN (14:20)
[2016-11-08] MEDS ORDERED: HYDROcodone-APAP 5-325 mg Tablet PO PRN (14:20)
--- NOTE | 2016-11-08 14:55 | NUR ---
Returned to [facility] post Bi-V pacemaker insert today by Dr Beltrán. Noted some puffiness over new pacer site - area secured with pressure dressing and ice. Pt has no pain - PCXR being done. Family talked to Dr Beltrán about today's procedure.
--- NOTE | 2016-11-08 15:34 | DRSVH ---
PROCEDURE: X-RAY CHEST ONE VIEW, PORTABLE ([id number]) INDICATIONS: For new leads placed TECHNIQUE: One view of the chest was acquired. COMPARISON: [facility], CT, CT CHEST WO CON, 10/21/2016, 12:35. [facility], CR, XR CHEST 2VW, 09/05/2016, 12:03. [facility], CR, XR CHEST 2VW, 07/01/2016, 10:13. FINDINGS: Surgical changes and devices: Left cardiac pacer present in expected position. Lungs and pleura: No pleural effusions or pneumothorax. Lungs are clear. Mediastinum: Mediastinal contours appear normal. Heart size is enlarged. Bones and chest wall: No suspicious bony lesions. Overlying soft tissues appear unremarkable. IMPRESSION: No immediate complications status post cardiac pacemaker placement. Dictated by: Brooks Barillas RRA Interpreted: Pili Jean MD on 11/08/2016 at 15:32 Transcribed by: TOM on 11/08/2016 at 15:34 Approved by: Pili Jean M.D. on 11/09/2016 at 11:33
--- NOTE | 2016-11-08 16:02 | NUR ---
Pacemaker incision site has not changed, patient denies pain at insertion site. Pressure dressing remains on with an ice bag. Plan to move to room 3006 at 1700 - Report given to Agata Randle RN for 3006. Daughter - in - Law - "Ivy" will be her ride home tomorrow. Bi-V Pacer is 100% captured.
--- NOTE | 2016-11-08 17:38 | NUR ---
Reassessment of pacer site prior to transport upstairs not bruising under right armpit - patient pain scale is 2/10. Dr Beltrán's team notified and new pressure dressing is applied by Mukesh DAVIS with a plan to keep pressure dressing on overnight. Right Radial pulse 2+ - pleth wave form without change SAo2 is 90-91%. Patient understands plan of care.
--- NOTE | 2016-11-08 18:41 | NUR ---
Transfer Pt transferred from [facility] s/p pacemaker placement. Pt arrived in bed, denies pain or discomfort, SL x 2. Pt has pressure dressing r/t bruising into axilla, area is soft and bruising is receding per [facility] RN during report and assessment of site. Pt oriented to room and call button. Pt resting comfortably in bed with call light within reach, bed low and locked, intentional rounding.
[2016-11-08] MEDS ORDERED: Fluticasone 0.05% 15 Spray/2 Gm 16 Gm Nasal Spray NASAL PRN (19:00)
[2016-11-08] MEDS ORDERED: Pantoprazole 20 mg ER24 Tablet PO PRN (19:05)
[2016-11-09] MEDS: 0.9% Sodium Chloride 1,000 ML IV SCH (00:16)
[2016-11-09 00:51] VITALS: BP 133/73; PULSE 60; RESP 20; O2SAT 92
[2016-11-09] MEDS ORDERED: Vancomycin Inj 1,000 MG in IV Premix 1 EACH IV ONE (02:20)
[2016-11-09 05:14] VITALS: BP 171/73; PULSE 60; RESP 18; O2SAT 92
--- NOTE | 2016-11-09 05:22 | NUR ---
Runs of Vtach Per telesales team leader Pt has had 2 separate runs of vetch. The first was 5 beats and the second 7. Pt asymptomatic for both runs.
--- NOTE | 2016-11-09 07:21 | OP ---
[address] [address] OPERATIVE REPORT PATIENT: KASSI WILLIS : 1930 MR#: [id number] ADMIT: 11/08/2016 JOB ID: [id number] DATE OF SURGERY: 11/08/2016 PREOPERATIVE DIAGNOSIS(ES): 1. Severe nonischemic cardiomyopathy with ejection fraction 30% to 35%. 2. QRS duration 152 msec with a left bundle-branch block morphology. 3. First-degree atrioventricular block. 4. [place] [employer] Class 3 heart failure symptomology. POSTOPERATIVE DIAGNOSIS(ES): 1. Severe nonischemic cardiomyopathy with ejection fraction 30% to 35%. 2. QRS duration 152 msec with a left bundle-branch block morphology. 3. First-degree atrioventricular block. 4. [place] [employer] Class 3 heart failure symptomology. PROCEDURES PERFORMED: 1. Biventricular pacemaker implantation with placement of a multi-lead pacemaker generator, coronary sinus left ventricular lead, right atrial pacemaker lead and right ventricular pacemaker lead. 2. Coronary sinus venogram. 3. Left upper extremity venogram. 4. Fluoroscopy. SURGEON: Isai Beltrán MD, research quality assurance analyst. AIR TRAFFIC COORDINATOR: Mukesh Gonzalez PA-C. IMPLANTED DEVICES: 1. [employer] pulse generator model [id number], serial #[id number]. 2. RV lead [employer] 2088TC, 52 cm, serial # [id number]. 3. RV lead [employer] 2088TC, 58 cm, serial #[id number]. 4. LV lead [employer] 1458Q, 86 cm, serial #[id number]. ANESTHESIA: Bolus dosing of Versed and fentanyl were utilized for appropriate level of sedation. INDICATION: The patient is a pleasant 85-year-old woman with severe dilated cardiomyopathy, advanced heart failure symptomology, left bundle-branch block. After discussion of risks and benefits of biventricular pacemaker implantation she opted to proceed. PROCEDURAL DESCRIPTION: Following informed signed consent, the patient was taken to the EP laboratory in a fasting nonsedated state, where she was prepped in usual sterile fashion. The left infraclavicular region was infiltrated with a 50/50 mixture of bupivacaine and lidocaine. Once adequate anesthesia had been achieved, a 3 cm transverse incision was performed 2 cm below the left clavicle. Dissection was carried down to the pectoralis fascia and a pocket was then fashioned using combination of electrocautery and blunt dissection. Once adequate hemostasis had been achieved, and with the aid of a left upper extremity venogram, the left axillary vein was cannulated over the first rib three times to deploy three 0.035, 3 mm J guidewires. Over the first of these, a 6-Grenadian tear-away sheath was advanced. Once the guidewire was removed, an active fixation lead was advanced to the RV outflow tract and ultimately the RV apex. The lead was affixed in position using its associated active fixation screw. It was connected to the external analyzer and demonstrated appropriately sensed R waves, impedance, capture threshold. The lead was checked to 10 V, and there was no evidence of diaphragmatic stimulation Attention was now paid to placement of the coronary sinus LV lead. Over another of the previously deployed J guidewires, a 9-Grenadian tear-away sheath was advanced. Once the guidewire was removed, a [employer] delivery sheath was delivered over a Super CS decapolar catheter and an extended period of time was spent cannulating the coronary sinus using both a fixed curve EP decapolar catheter, a deflectable decapolar catheter and various shapes of delivery sheath. Ultimately, the Super CS catheter was successful in conjunction with an extra wide CS delivery sheath. A coronary sinus venogram was performed and delineated a large posterolateral branch at the three o'clock position off the mitral annulus. This was chosen as our branch of choice. A quadripolar [employer] CS lead was delivered over a Whisper wire into the branch of choice. The lead was connected to external analyzer and demonstrated appropriately sensed R waves, impedance, and capture threshold. Was checked to 10 V and there was no evidence of diaphragmatic stimulation. The 9-Grenadian sheath was slit loose and the long sheath was left in place for stability while we placed the atrial lead. The atrial lead was addressed next. Over the last of the previously deployed J guidewires, another 6-Grenadian tear-away sheath was advanced. Once the guidewire was removed an active fixation lead was advanced to the right atrial appendage. It was affixed in position using its associated active fixation screw. It was connected to the external analyzer and demonstrated appropriately sensed P waves, impedance, capture threshold. The lead was checked to 10 V and there was no evidence of diaphragmatic stimulation. Finally, the long sheath was slit loose maintaining the position of the CS lead. Once the position and redundancy of all three leads was confirmed in multiple fluoroscopic views, the leads were anchored to the prepectoralis fascia using their associated anchoring sleeves and two Ethibond sutures. The pocket was then copiously irrigated with antibiotic solution. The leads were connected to a generator. The generator was placed into the pocket and affixed to the floor of the pocket using 1-0 Ti-Cron suture. The incision was then closed with running layers of absorbable suture. The wound was dressed with skin adhesive . At the end of procedure, the needle, sponge and instrument counts were all correct.. COMPLICATIONS: None. ESTIMATED BLOOD LOSS: 10 cc. DEVICE MEASURED DATA: 1. Right atrial lead 2.1 mV, 410 ohms, 1 V at 0.4 msec. 2. RV lead 7.9 mV, 740 ohms, 1 V at 0.4 msec. 3. LV lead, 560 ohms, 0.75 V at 0.4 msec ( ). PARAMETERS: DDDR 60-130 beats per minute. IMPRESSION: Successful UNIT CONTROL CLERK-P implantation. PLAN: 1. Stat portable chest x-ray. 2. PA and lateral chest x-ray in the morning. 3. Device interrogation in the morning. 4. IV vancomycin through tomorrow. 5. Doxycycline x7 days. 6. Wound check in one week. ATTENDING STATEMENT: Isai Beltrán MD, electrophysiology attending, was present for and supervised/performed all aspects of this procedure.
[2016-11-09] MEDS ORDERED: Omega-3 Fatty Acids 1,000 mg Capsule PO SCH (08:30)
[2016-11-09] MEDS ORDERED: Ascorbic Acid 500 mg Tablet PO SCH (08:30)
[2016-11-09 09:09] VITALS: BP 111/63; PULSE 68; RESP 18; O2SAT 90
--- NOTE | 2016-11-09 09:28 | PCM.DIMED ---
Discharge Instructions Date of Service Nov 09, 2016 Dates of Hospitalization Discharge Diagnosis Discharge Diagnosis Nonischemic Cardiomyopathy Rate Related LBBB Hypertension Sleep Apnea Chronic Systolic Heart Failure Diet Discharge Diet: Low fat, Low Sodium, Heart Healthy Activity Discharge Activity: Other (Keep incision dry one day. Do not extend left elbow high above shoulder for one month. Do not lift, push or pull more than 10 lbs with the left arm for one month.) Call your provider Call your provider for: Fever or Chills, Bleeding, Excessive diarrhea Patient Instructions Follow-up in: 1 week Mid-level Provider (F9): Mukesh Gonzalez PA-C Follow-up with Mid-level in: 6 weeks Mukesh Gonzalez PA-C Nov 09, 2016 09:28
[2016-11-09] MEDS ORDERED: CEPH500C PO (09:49)
--- NOTE | 2016-11-09 10:09 | DRSVH ---
PROCEDURE: X-RAY CHEST, TWO VIEWS ([id number]) INDICATIONS: For new lead placement TECHNIQUE: 2 views of the chest were acquired. COMPARISON: [facility], CR, XR CHEST 1VW (PORTABLE), 11/08/2016, 14:51. [facility], CT, CT CHEST WO CON, 10/21/2016, 12:35. [facility], CR, XR CHEST 2VW, 09/05/2016, 12:03. FINDINGS: Surgical changes and devices: Left cardiac pacer present in unchanged position. Lungs and pleura: Trace bibasilar pleural effusions present otherwise lungs are clear and hyperinflat ed. No pneumothorax. Mediastinum: Mediastinal contours are normal. Heart size is enlarged. Bones and chest wall: No suspicious bony abnormalities. Soft tissues appear unremarkable. IMPRESSION: 1. Stable positioning of left cardiac pacer. 2. Trace pleural effusions and hyperinflation suggesting COPD. Correlate clinically. Dictated by: Brooks Barlilas RRA Interpreted: Katelyn Blanchard MD on 11/09/2016 at 9:49 Approved by: Katelyn Blanchard MD, PhD on 11/09/2016 at 10:07
--- NOTE | 2016-11-09 10:28 | DIS ---
[address] [address] DISCHARGE SUMMARY PATIENT: KASSI WILLIS : 1930 MR#: [id number] ADMIT: 11/08/2016 JOB ID: [id number] DIS: REASON FOR ADMISSION: Pacemaker implant. CHIEF COMPLAINT: Exertional dyspnea and fatigue. BRIEF HISTORY: The patient is a pleasant 85-year-old woman with severe nonischemic cardiomyopathy and an LV ejection fraction of 30% to 35%. She also has rate-related left bundle branch block with sinus rates above 70 bpm. This gives her a QRS duration of 152 msec. The patient was hospitalized earlier this year for decompensated heart failure despite treatment with optimal heart failure medications. After discharge, she has improved but still continues to have exertional fatigue and dyspnea with minimal exertion. She denies lightheadedness or syncope or chest pain. She has a long history of cardiomyopathy. Arrangements were made for cardiac resynchronization therapy pacemaker as adjunctive therapy to her heart failure medications. COURSE IN HOSPITAL: The patient was admitted through the [facility] and taken to the catheterization laboratory, where she received the 3-lead pacing system without incident, although it was a technically difficult procedure and the duration of the procedure was probably an hour more than normal. Afterwards, she was transferred back to the [facility] for recovery from sedation and while there, it was noted that she had bleeding into the pacemaker pocket. A firm pressure dressing was applied and left in place overnight. In the morning the device site was no longer enlarging and, in fact, it appeared flatter than the afternoon before. There was significant ecchymosis in the skin lateral to the pocket. She had no pain. Pacemaker evaluation showed excellent capture and sensing thresholds for all three leads. Chest x-ray showed no pneumothorax and all three leads were in good position. She felt well for discharge home. DISPOSITION: The patient was discharged home in good condition with a followup appointment at the [facility] Cardiology office in one week. She was asked not to extend her left elbow above her shoulder for one month and not to lift, push, or pull more than 10 pounds with the left arm for one month. She was also asked to leave the pressure dressing tapes in place until about four o'clock this afternoon for a full 24 hours of pressure. She will continue her heart healthy, low salt, low fat diet and take medications as prescribed. DISCHARGE MEDICATIONS: 1. Cephalexin 500 mg b.i.d. for 1 week. 2. Ascorbic acid 1 g daily. 3. Aspirin 81 mg daily. 4. Atorvastatin 10 mg q.h.s. 5. Bone density calcium plus D caplet 1 b.i.d. 6. Carvedilol 25 mg b.i.d. 7. Fluticasone nasal spray p.r.n. 8. Furosemide 20 mg daily. 9. Lactobacillus acidophilus 1 mg daily. 10. Losartan 50 mg b.i.d. 11. Multivitamin for eyes 2 tablets b.i.d. 12. Omeprazole 20 mg p.r.n. indigestion. 13. Canmer oil 1 gel cap daily. 14. Simethicone 180 mg b.i.d. p.r.n. gas. 15. CoQ10, 100 mg daily. ASSESSMENT: 1. Nonischemic cardiomyopathy. 2. Rate-related left bundle branch block. 3. Hypertension. 4. Sleep apnea. 5. Chronic systolic heart failure.
--- NOTE | 2016-11-09 12:57 | NUR ---
Discharge Nursing note: Patient was discharged to home4 at 1250. Her IVs were removed x2 intact. All of her discharge information was reviewed with her and her questions were answered to her satisfaction . Patient is going to her pacemaker appointment and her incision check appointment as planned. Patients pressure dressing was left over her pacemaker incision as recommended by specialist. Patient was brought to the hospital lobby by nursing staff member and she was driven home by a family member.
[2016-11-16] MEDS ORDERED: CEFAZOLIN IV SCH (08:30)
== END 2016-11-09 12:49 | disposition home or self-care (01) ==
LOC: SOUO 00:20 → MPC 18:36 → SOUO 11-09 12:49
PROVIDERS: ATTEND Internal Medicine Cardiovascular Disease
DX: I42.0 Dilated cardiomyopathy (principal); I44.7 Left bundle-branch block, unspecified; I44.0 Atrioventricular block, first degree; Z79.82 Long term (current) use of aspirin; G47.30 Sleep apnea, unspecified; I50.22 Chronic systolic (congestive) heart failure
CPT/HCPCS: 33208; 33225; 36415; 71010; 71020; 80048; 85025; 85610; 93005; 99152; 99153; C1730; C1769; C1887; C1892; C1898; C1900; C2621; J1644; J2250; J3010; J3370; J7050; Q9967

== ENCOUNTER 2016-11-14 22:25 | Inpatient (IN) | payer MEDICARE, OTHER ==
[~2016-11-14] VITALS: Ht 167.6 cm; Wt 62.0 kg
[~2016-11-14 22:25] MED LIST changes: +CEPH500C PO; -FAMO20T PO; -PRE20 PO
[2016-11-14 22:43] VITALS: BP 124/67; PULSE 96; RESP 16; O2SAT 94
--- NOTE | 2016-11-14 22:44 | ED.REPORT ---
HPI-General Illness Date of Service Nov 14, 2016 ED Provider: Chuck Welch MD Pt is an 85 y.o. female with a hx of HTN and pacemaker insertion secondary to cardiomyopathy who presents to the ED via EMS c/o diarrhea onset 3 days ago. Associated nausea, intermittent abdominal pain, and dizziness. She denies vomiting, fever, bloody/tarry stool, and hematochezia. Pt reports having a pacemaker insertion on 11/08/16 and was discharged on Keflex. She believed that her sx are most likely due to her abx use. She states that she is uncomfortable being at home with her current sx. Pt denies a hx of C.Diff. Nursing Notes Stated Complaint: DIARRHEA Chief Complaint: Female Abdominal Pain Nursing Notes Reviewed: Yes Allergies: Coded Allergies: Contrast Media (Verified Allergy, Severe, "red, itchy", 11/08/16) Pt had urticarial rash after PE study in ER on 09/05 and was given benadryl. kld 10/21/16 adhesive tape (Verified Allergy, Severe, RASH, 11/08/16) lisinopril (Verified Adverse Reaction, Severe, cough, 11/08/16) Scheduled Ascorbic Acid (Vitamin C) 1,000 Mg Tab.chew 1,000 MG PO DAILY Aspirin (Aspirin) 81 Mg Tablet 81 MG PO DAILYWD Atorvastatin Calcium (Atorvastatin Calcium) 10 Mg Tablet 10 MG PO HS Ca Carb/D3/Argnin/Inos/Silicon (Bone Density Calcium + D Cplt) 1 Each Tablet 1 EACH PO BID Carvedilol (Carvedilol) 25 Mg Tablet 25 MG PO BID Cephalexin (Cephalexin) 500 Mg Capsule 500 MG PO BID Furosemide (Furosemide) 20 Mg Tab 20 MG PO DAILY Lactobacillus Acidophilus (Acidophilus Probiotic) 1 Mg Tablet 1 MG PO DAILY Losartan Potassium (Losartan Potassium) 50 Mg Tablet 50 MG PO BID Multivit-Min/FA/Lutein/Zeaxant (Macular Vitamin Tablet) 1 Each Tablet 2 EACH PO BID Wells Oil/[place]-3 Fatty Acids (Wells Oil 1,000 mg Softgel) 1 Each Capsule 1 EACH PO DAILY Ubidecarenone (Coq-10) 100 Mg Capsule 100 MG PO DAILY Vit C/Kiara AC/Lut/Copper/Znox (Preservision Lutein Softgel) 1 Each Capsule 1 EACH PO BID Scheduled PRN Fluticasone Propionate (Fluticasone Propionate Nasal) 16 Gm [place].susp 1 SPRAY NASAL DAILY PRN PRN allergies Omeprazole (Omeprazole) 20 Mg Capsule.dr 20 MG PO DAILY PRN PRN For Indigestion Simethicone (Gas Relief) 180 Mg Capsule 180 MG PO BID PRN PRN GAS General Time Seen by MD: 22:43 Chief Complaint Diarrhea Hx Obtained From: Patient Arrived By: Ambulance Sudden in Onset?: Yes Onset Occurred: 3 days ago Context of Onset: Recent antibiotic use Symptom Duration: Since onset Location: : Abdomen Quality: Painful Recent Healthcare: Recent hospitalization, Previous surgery Past Medical History Past Medical History R knee arthritis Cardiomyopathy Reports: GERD, Hyperlipidemia Past Surgical History Cardiac catheterization Reports: Appendectomy, Cholecystectomy, Hysterectomy Reports: Pacemaker insertion Smoking History Former Smoker Ambulatory Status Independent Review of Systems Full Review of Systems Constitutional: Denies: Fever GI: Reports: Abdominal pain, Diarrhea, Nausea, Denies: Bloody/tarry stool, Hematochezia, Vomiting Neurologic: Reports: Dizziness Complete sys rev & neg: except as marked. Physical Exam Vital Signs Vital Signs Date Time Temp Pulse Resp B/P Pulse Ox O2 Delivery O2 Flow Rate FiO2 11/15/16 00:53 72 16 129/61 92 Room Air 11/14/16 22:43 36.8 96 16 124/67 94 Room Air Initial VS: Reviewed Extremities: Vascular intact, Neuro intact Skin: Warm, Dry, No cyanosis Neurologic: Alert, Oriented, Nonfocal Psychiatric: Mood/affect normal, Behavior normal, Normal thought content General/Constitutional: Awake, Alert Appearance / Presentation: Positive: Pale Head / Eyes: Atraumatic, Normocephalic, PERRL ENT: Atraumatic, Airway patent Mouth: Positive: Mucous membranes dry Respiratory / Chest: Breath sounds NL, Breath sounds = bilat, No respiratory distress Surgical wound to chest is clean and well healing with surrounding ecchymosis, no signs of infection. Cardiovascular: Heart rate NL, Heart sounds NL, Cap refill not delayed, Peripheral circulation NL Abdomen: Atraumatic Bowel Sounds / Distention: Positive: Distention mild (bloated) Obstructive sounding bowel sounds, high-pitched. Interpretation & Diagnostics Lab Results Interpretation Result Diagram: 11/14/168 11/14/16 2248 Test 11/14/16 22:48 11/15/16 00:02 White Blood Count 16.7th/mm3 (3.8-10.1) Red Blood Count 4.42mil/mm3 (3.90-5.20) Hemoglobin 13.6g/dL (12.0-15.6) Hematocrit 42.7% (35.0-46.0) Mean Corpuscular Volume 96.6fL (81-100) Mean Corpuscular Hemoglobin 30.8pg (27.0-35.0) Mean Corpuscular Hemoglobin Concent 31.9% (32.0-37.0) Red Cell Distribution Width 13.9% (12.3-15.4) Platelet Count 157bil/L (150-400) Neutrophils (%) (Auto) 76.0% (40-74) Lymphocytes (%) (Auto) 14.0% (14-46) Monocytes (%) (Auto) 8.9% (4-12) Eosinophils (%) (Auto) 0.3% (0-5) Basophils (%) (Auto) 0.1% (0-3) Prothrombin Time 11.3sec (8.1-12.5) Prothromb Time International Ratio 1.05ratio Sodium Level 134mEq/L (134-144) Potassium Level 4.1mEq/L (3.5-5.2) Chloride Level 88mEq/L (97-108) Carbon Dioxide Level 29mmol/L (18-29) Blood Urea Nitrogen 21mg/dL (8-27) Creatinine 0.67mg/dL (0.57-1.00) Estimat Glomerular Filtration Rate 119mL/min (>59) Glucose Level 139mg/dL (60-99) Calcium Level 9.8mg/dL (8.5-10.1) Magnesium Level 2.0mg/dL (1.6-2.6) Total Bilirubin 2.5mg/dL (0.0-1.2) Aspartate Amino Transf (AST/SGOT) 31U/L (0-50) Alanine Aminotransferase (ALT/SGPT) 17U/L (0-32) Alkaline Phosphatase 65U/L (25-165) Total Protein 7.3g/dL (6.4-8.4) Albumin 4.1g/dL (3.4-5.0) Lipase 29U/L (13-60) Urine Color Yellow (YELLOW) Urine Appearance Clear (CLEAR,HAZY) Urine pH 5.5 (5.0-8.0) Urine Specific [place] 1.020 (1.003-1.035) Urine Protein 30mg/dL (NEG,TRACE) Urine Glucose (UA) Negativemg/dL (NEGATIVE) Urine Ketones Tracemg/dL (NEGATIVE) Urine Occult Blood Negative (NEGATIVE) Urine Nitrite Negative (NEGATIVE) Urine Bilirubin Negative (NEGATIVE) Urine Urobilinogen 1.0mg/dL (NORMAL) Urine Leukocyte Esterase Negative (NEGATIVE) Urine RBC 0-2/hpf (0-2) Urine WBC 0-5/hpf (0-5) Urine Epithelial Cells Occasional/hpf (NONE-MOD) Urine Crystals Oxalic acid crystals (NONE Urine Bacteria Few/hpf (NONE-FEW) Urine Hyaline Casts >20/lpf (NONE) Urine Granular Casts Rare (NONE SEEN) Urine Waxy Casts None seen (NONE SEEN) Urine Red Blood Cell Casts None seen (NONE SEEN) Urine White Blood Cell Casts None seen (NONE SEEN) Urine Mucus Present (None Seen) Urine Trichomonas None seen (NONE SEEN) Urine Yeast None (NONE SEEN) Urinalysis Comment None Urine Culture Reflexed Not indicated CT Abd / Pelvis Interpretation IMPRESSION: Small bowelobstruction assocaited with mesenteric whorling suggesting adhesions/internal hernia. Small volume of ascited Diverticulosis Mild cardiomegaly with pacemaker present Small pericardial effusion Non-emergent incidental findings as noted. Radiologist: Andrei Solorio MD Re-Eval/Medical Decision Med Decision/Clinical Course 85-year-old presents with diarrhea and bloating and abdominal pain. Her initial exam suggested now obstruction with obstructive noises on auscultation. CT scan was ordered and indeed shows a swirling mesentery pattern and distal small bowel obstruction. She is admitted now for IV fluid support. Not vomiting and not in need of an NG tube at this point. Consultation surgery this morning. Source of Hx: Old records Time of Eval: 00:35 Re-Evaluation/Progress Note: Pt rechecked. Discussed imaging and need for admit, pt understands and agrees with plan. Discussed code status. Pt is full code. Consultation : Referral / Consult Name: Robert Carvalho MD Consulted With: Hospitalist Call Returned at: 00:42 Filling Layer Up: Agrees with eval, Agrees with plan, Accepts admit Note: Discussed pt conditon. Accepts admit. Counseled Regarding: Diagnosis, Lab results, Need for admission Discharge & Departure Primary Impression: Small bowel obstruction Additional Impression: Cardiomyopathy Disposition: ADMITTED TO HOSPITAL Discharge Condition All VS Reviewed: Yes Condition: Improved Referrals: Emy Gant MD (PCP) Lea Attestation Portions of this note were transcribed by Favian Sherwood. I, Dr. Welch personally performed the history, physical exam and medical decision-making; I reviewed and confirmed the accuracy of the information in the transcribed note. Signed by: Lea Moon, 11/15/16 and 0045 copies to: Emy Gant MD, Christopher W MD Nov 14, 2016 22:44 FAVIAN SHERWOOD Nov 14, 2016 22:55
[2016-11-14] MEDS ORDERED: 0.9% Sodium Chloride 1,000 ML IV ONE (22:53)
[2016-11-14] MEDS ORDERED: Ondansetron 2 mg/mL 2 mL Inj IVPUSH ONE (22:55)
[2016-11-14 23:10] LABS: BASOPHILS % (AUTO) 0.1 % (0-3); EOSINOPHILS % (AUTO) 0.3 % (0-5); MONOCYTES % (AUTO) 8.9 % (4-12); Mean Corpuscular Hemoglobin 30.8 pg (27.0-35.0); Mean Corpuscular Volume 96.6 fL (81-100); Platelet Count 157 bil/L (150-400)
[2016-11-14 23:26] LABS: INR 1.05 ratio
[2016-11-15] VITALS (11 sets, daily range): BP systolic 95–143; BP diastolic 52–75; PULSE 67–94; RESP 16–18; O2SAT 90–95
[2016-11-15 00:27] LABS: APPEARANCE,URINE CLEAR (CLEAR,HAZY); COLOR,URINE YELLOW (YELLOW); OCCULT BLOOD,URINE NEGATIVE (NEGATIVE); PH,URINE 5.5 (5.0-8.0)
[2016-11-15] MEDS ORDERED: Polyethylene Glycol (PEG) 17 Gm Powder PO PRN (00:45)
[2016-11-15] MEDS ORDERED: Alum-Mag Hydrox-Simeth 30 mL Suspension PO PRN (00:45)
--- NOTE | 2016-11-15 00:54 | PCM.HPMED ---
Subjective Date of Service Nov 15, 2016 Primary Provider: Admitting Physician: Primary Care Physician: Emy Gant MD Attending Physician: Admit Status: From the Emergency Department, Full Admit, Remote Telemetry Chief Complaint: Diarrhea with abdominal pain History of Present Illness: Aliya Jerome is an 85 y.o. female with Nonischemic dilated cardiomyopathy, emphysema, GERD, hyperlipidemia, arthritis, mitral valve prolapse presenting to [facility] emergency department with complaints of diarrhea and abdominal pain onset 3 days ago. Patient reported the diarrhea started on Monday. Associated symptoms includes nausea, intermittent abdominal pain (diffuse, achy pain without any radiation), and dizziness. She denies vomiting, fever, bloody/tarry stool, and hematochezia. Patient suspected symptoms started right after starting antibiotics. Pt reports having a pacemaker insertion on 11/08/16 and was discharged on Keflex. Patient denies any chest pain or shortness of breathe Case discussed with Dr Welch, CT confirmed small bowel obstruction. Symptoms mild not requiring NG tube placement. Review of Systems: Pertinent positives as noted in HPI. All other systems were reviewed and are negative Allergies Coded Allergies: Contrast Media (Verified Allergy, Severe, "red, itchy", 11/08/16) Pt had urticarial rash after PE study in ER on 09/05 and was given benadryl. kld 10/21/16 adhesive tape (Verified Allergy, Severe, RASH, 11/08/16) lisinopril (Verified Adverse Reaction, Severe, cough, 11/08/16) Home Medications From [facility], not yet confirmed Aliya Jerome. [id number] 1930 10/06/2016 12:30 PM 06/10 aspirin 81 mg tablet,delayed release take 1 tablet by oral route every day atorvastatin 10 mg tablet take 1 tablet by oral route every day Benadryl 25 mg capsule take 1 Capsule by oral route twice daily for 3 doses starting the AM of 11/07/2016. Bone Density Calcium + D 300 mg-200 unit-37.5 mg Tab take 3 tablets every day carvedilol 25 mg tablet take 1 tablet by oral route 2 times every day with food Co Q-10 1 daily furosemide 20 mg tablet take 1 tablet by oral route every morning Gas Relief 125 mg capsule take 1 tablet 1-2x/day as needed Lactobacillus acidophilus 1 mg (100 million cell) tablet take 1 tablet by oral route every day losartan 50 mg tablet take 1 tablet by oral route 2 times every day omeprazole 20 mg capsule,delayed release take 1 capsule by oral route every day before a meal as needed Pepcid 20 mg tablet take 1 tablet by oral route 2 times every day for three doses starting the AM of 11/07/2016. prednisone 20 mg tablet take 2 Tablet by oral route 2 times every day for 3 doses, starting the AM of 11/07/2016 PreserVision Lutein 226 mg-200 unit-5 mg-0.8 mg capsule 1 tablet twice daily Daykin Oil-1000 1 tablet by mouth daily Vitamin C 1,000 mg tablet 1 tablet by mouth daily PMH Nonischemic dilated cardiomyopathy Pneumonia in May 2016 Emphysema GERD Hyperlipidemia Arthritis Mitral valve prolapse with mitral regurgitation Hypertension AV Block s/p pacemaker Sleep Apnea Spinal stenosis Anxiety and Depression . Surgical History Cardiac catheterization, and knee replacement on the right side March 2016 Hysterectomy 1972, cholecystectomy 1982, appendectomy 1940, sinus surgery 1989, CTR 2008 recent pacemaker placement 11/09/16 Family History Son of lung cancer, mother of old age at age 96, father had prostate cancer and a stroke and at age 75 while in the [place] which she thinks may have been related to heart disease Social History Hx Alcohol Use: Yes Hx Substance Use: No Hx Tobacco Use: Yes Smoking Status: Former Smoker Exam Vital Signs Vital Sign - Last Date Time Temp Pulse Resp B/P Pulse Ox O2 Delivery O2 Flow Rate FiO2 11/14/16 22:43 36.8 96 16 124/67 94 Room Air Intake and Output 11/14/16 11/14/16 11/15/16 Cumulative From/Thru 15:00 23:00 07:00 11/14/16 22:43 - 11/14/16 23:07 Intake Total 999 ml 999 ml Balance 999 ml 999 ml Intake IV Total 999 ml 999 ml Exam General: Alert, Oriented X3, Cooperative, No acute Distress Eyes: PERRLA, Scleral Anicteric Mouth: Mouth Normal, Mucous Membranes Moist/[place] Neck: Supple, no Thyromegaly, trachea central. Chest & Lungs: Clear to auscultation & percussion, No adventitious breath sounds, no crackles, no wheeze Cardiovascular: Normal S1, Normal S2, No Murmurs/Rubs/Gallops, Regular Rate/ Rhythm, (No JVD, no peripheral edema) Pulses: Radial (present and equal), Dorsalis Pedi (present and equal) Abdomen: Soft, diffuse tenderness, no guarding or rebound, mild distended, hypoactive bowel tones. Musculoskeletal: Unremarkable. Normal range of motion, no swollen or erythematous joints Extremities: No edema, no cyanosis, no clubbing. Skin: No rashes. Warm and dry, no erythematous areas Neurological: Grossly neurologically intact, Normal Speech, Sensation Intact Lymphatic: Lymph nodes Cervical and Axillary not palpable. Lab and Diagnostics Labs Laboratory Tests Test 11/14/16 22:48 11/15/16 00:02 White Blood Count 16.7th/mm3 (3.8-10.1) Red Blood Count 4.42mil/mm3 (3.90-5.20) Hemoglobin 13.6g/dL (12.0-15.6) Hematocrit 42.7% (35.0-46.0) Mean Corpuscular Volume 96.6fL (81-100) Mean Corpuscular Hemoglobin 30.8pg (27.0-35.0) Mean Corpuscular Hemoglobin Concent 31.9% (32.0-37.0) Red Cell Distribution Width 13.9% (12.3-15.4) Platelet Count 157bil/L (150-400) Neutrophils (%) (Auto) 76.0% (40-74) Lymphocytes (%) (Auto) 14.0% (14-46) Monocytes (%) (Auto) 8.9% (4-12) Eosinophils (%) (Auto) 0.3% (0-5) Basophils (%) (Auto) 0.1% (0-3) Prothrombin Time 11.3sec (8.1-12.5) Prothromb Time International Ratio 1.05ratio Sodium Level 134mEq/L (134-144) Potassium Level 4.1mEq/L (3.5-5.2) Chloride Level 88mEq/L (97-108) Carbon Dioxide Level 29mmol/L (18-29) Blood Urea Nitrogen 21mg/dL (8-27) Creatinine 0.67mg/dL (0.57-1.00) Estimat Glomerular Filtration Rate 119mL/min (>59) Glucose Level 139mg/dL (60-99) Calcium Level 9.8mg/dL (8.5-10.1) Magnesium Level 2.0mg/dL (1.6-2.6) Total Bilirubin 2.5mg/dL (0.0-1.2) Aspartate Amino Transf (AST/SGOT) 31U/L (0-50) Alanine Aminotransferase (ALT/SGPT) 17U/L (0-32) Alkaline Phosphatase 65U/L (25-165) Total Protein 7.3g/dL (6.4-8.4) Albumin 4.1g/dL (3.4-5.0) Lipase 29U/L (13-60) Urine Color Yellow (YELLOW) Urine Appearance Clear (CLEAR,HAZY) Urine pH 5.5 (5.0-8.0) Urine Specific [place] 1.020 (1.003-1.035) Urine Protein 30mg/dL (NEG,TRACE) Urine Glucose (UA) Negativemg/dL (NEGATIVE) Urine Ketones Tracemg/dL (NEGATIVE) Urine Occult Blood Negative (NEGATIVE) Urine Nitrite Negative (NEGATIVE) Urine Bilirubin Negative (NEGATIVE) Urine Urobilinogen 1.0mg/dL (NORMAL) Urine Leukocyte Esterase Negative (NEGATIVE) Urine RBC 0-2/hpf (0-2) Urine WBC 0-5/hpf (0-5) Urine Epithelial Cells Occasional/hpf (NONE-MOD) Urine Crystals Oxalic acid crystals (NONE Urine Bacteria Few/hpf (NONE-FEW) Urine Hyaline Casts >20/lpf (NONE) Urine Granular Casts Rare (NONE SEEN) Urine Waxy Casts None seen (NONE SEEN) Urine Red Blood Cell Casts None seen (NONE SEEN) Urine White Blood Cell Casts None seen (NONE SEEN) Urine Mucus Present (None Seen) Urine Trichomonas None seen (NONE SEEN) Urine Yeast None (NONE SEEN) Urinalysis Comment None Urine Culture Reflexed Not indicated Result Diagram: 11/14/16224711/14/162247 X-Rays, CTs and MRIs CT Abd / Pelvis Interpretation 11/14 IMPRESSION: Small bowelobstruction assocaited with mesenteric whorling suggesting adhesions/internal hernia. Small volume of ascited Diverticulosis Mild cardiomegaly with pacemaker present Small pericardial effusion Non-emergent incidental findings as noted. Radiologist: Andrei Solorio MD Assessment & Plan Aliya Jerome is an 85 y.o. female with Nonischemic dilated cardiomyopathy, emphysema, GERD, hyperlipidemia, arthritis, mitral valve prolapse presenting to [facility] emergency department with complaints of diarrhea and abdominal pain 1. Acute Small bowel obstruction. Present on admission Likely due to adhesion disease from prior abdominal surgery. Differential diagnosis Volvulus, Chronic intestinal pseudo-obstruction or Ileus - nothing by mouth - consider NG tube placement if symptoms worsens - General surgery consult in the morning 2 Acute Diarrhea. Present on admission Patient had antibiotics exposure during her recent pacemaker procedure. Differential diagnosis includes viral gastroenteritis - stool for C difficile 3 Nonischemic dilated cardiomyopathy with ejection fraction 30% to 35%. s/p Biventricular pacemaker Pacemaker site showed no infection - monitor on telemetry - monitor for signs of fluid overload - will hold diuretics as patient is NPO to avoid hypovolemia 4 Hypertension - continue Carvedilol 25 mg bid and losartan 50 mg bid 5 Hyperlipidemia - continue Atorvastatin 10 mg daily 6 GERD - holding Protonix till C difficile is ruled out - Acetaminophen as needed for mild pain/fever/headache - Bowel regimen as needed - Antiemetic as needed Patient admitted under inpatient status with expected length of stay > 2 midnights for severity of present symptoms, complexities of treatment plan and risk for adverse event . Resuscitation Status: CPR: Attempt Resuscitation Robert Carvalho MD Nov 15, 2016 00:53
--- NOTE | 2016-11-15 03:33 | NUR ---
ADMIT Patient admit for SBO. Patient reports abdominal pain is minimal and nausea has subsided. Patient is alert and oriented and ambulatory in her room. Oriented to room and call light. Will continue to monitor.
[2016-11-15] MEDS: Heparin 5,000 Unit/mL Inj SUBQ SCH ×3 (08:29→23:31)
[2016-11-15] MEDS: 0.9% Sodium Chloride 1,000 ML IV SCH ×2 (08:29→23:31)
[2016-11-15] MEDS ORDERED: Famotidine Inj 20 MG in IV Premix 1 EACH IV SCH (08:30)
[2016-11-15] MEDS: Ondansetron 2 mg/mL 2 mL Inj IVPUSH PRN ×3 (08:42→15:47)
--- NOTE | 2016-11-15 08:47 | DRSVH ---
PROCEDURE: CT ABDOMEN AND PELVIS WITHOUT CONTRAST ([id number]) INDICATIONS: pain, bloatiing, diarrhea TECHNIQUE: Noncontrast 5 mm thick sections acquired from the diaphragms to the symphysis. 5 mm coronal and sagi ttal reformats were then performed. For radiation dose reduction, the following was used: automated exposure control, adjustment of mA and/or kV according to patient size. COMPARISON: None. FINDINGS: Image quality: Excellent. ABDOMEN: Lung bases: Bibasilar scarring/atelectasis. Heart is enlarged. Trace pericardial fluid. Solid organs: Unenhanced liver grossly unremarkable. Gallbladder surgically absent. Biliary tree and pancreas grossly unremarkable on this unenhanced examination. Spleen and adrenal glands within normal limits. No nephrolithiasis or hydronephrosis. Ureters appear decompressed. Peritoneum and bowel: Perihepatic free fluid is present. No free air identified. There are multiple d ilated loops of small bowel, with relative decompression of the colon. These measure up to 4.4 cm. Th ere are scattered air-fluid levels. Proximal oral and appearance of the mesentery raising the possibi lity of adhesions or internal hernia. Exact transition point is not seen. Incidentally noted colonic diverticula. The appendix is not well visualized. The rectum is decompressed otherwise unremarkable i n this unenhanced examination. Nodes and vessels: No retroperitoneal or mesenteric adenopathy by size criteria. Aorta and inferior vena cava are normal in caliber. Miscellaneous: No ventral hernias. PELVIS: Genitourinary: The bladder is decompressed Miscellaneous: No inguinal hernias or adenopathy. Bones: Diffuse osteopenia. No definite suspicious bone lesions. Bilateral hip joint degeneration, and multilevel discogenic changes IMPRESSION: Small bowel obstruction, with a mesenteric appearance raising the possibility of adhesion or internal hernia. Exact transition point is unclear. Mild ascites. Incidental colonic diverticulosis. Cardiomegaly. Trace pericardial fluid. Findings were discussed with Dr. Welch in the emergency department by Dr. Solorio at the time of pr eliminary study interpretation 11/15/16 0008 hours Dictated by: Willie Coughlin M.D. on 11/15/2016 at 8:39 Approved by: Willie Coughlin M.D. on 11/15/2016 at 8:46
--- NOTE | 2016-11-15 10:49 | CONS ---
[address] [address] CONSULTATION REPORT PATIENT: KASSI WILLIS : 1930 MR#: [id number] ADMIT: 11/15/2016 JOB ID: [id number] DATE OF SERVICE: 11/15/2016 CHIEF COMPLAINT: Abdominal pain. HISTORY OF PRESENT ILLNESS: The patient is an 85-year-old woman who was admitted to the hospitalist service overnight after she presented to the emergency department with abdominal pain, distention and nausea. She recently had a pacemaker placed on Monday of last week and was given antibiotics for that. On Monday she began having loose diarrhea and on Monday the diarrhea was very thin, watery brown liquid. Yesterday she developed increasing abdominal distention and nausea although she has not had vomiting. She presented to the emergency department for evaluation. Her last bowel movement was Monday morning. PAST MEDICAL HISTORY: 1. Nonischemic dilated cardiomyopathy. 2. Pneumonia May 2016. 3. COPD. 4. GERD. 5. Hyperlipidemia. 6. Arthritis. 7. Mitral valve prolapse with regurgitation. 8. AV block. 9. Hypertension. 10. Sleep apnea. 11. Spinal stenosis. 12. Anxiety/depression. PAST SURGICAL HISTORY: 1. Right knee replacement March 2016. 2. Hysterectomy 1972. 3. Open cholecystectomy in 1982. 4. Open appendectomy 1940. 5. Sinus surgery 1989. 6. Pacemaker placement on November 09, 2016. MEDICATIONS: 1. Keflex. 2. Atorvastatin. 3. Carvedilol. 4. Losartan. 5. Aspirin 81. 6. Multivitamin. 7. Furosemide. 8. Fluticasone. 9. Lactobacillus. 10. Omeprazole. 11. Simethicone. 12. Ascorbic acid. 13. [place] oil. 14. Co Q10. ALLERGIES: To IV CONTRAST. This was clarified with the patient, because the medical records says contrast media. She has never been allergic to oral contrast agents. OTHER ALLERGIES: Include ADHESIVE TAPE and LISINOPRIL. SOCIAL HISTORY: She drinks alcohol socially. Denies illicit drug use. She is a former smoker. FAMILY HISTORY: Son had lung cancer. Father had prostate cancer and a stroke. REVIEW OF SYSTEMS: A 10-point review of systems is negative except as described in history of present illness, specifically negative for blood in the stool. PHYSICAL EXAMINATION: Body mass index 21.7, temperature 36.5, pulse 67, blood pressure 121/65, saturation 95% on 1 L nasal cannula. General: She is resting in bed in no acute distress. HEENT: Sclerae are anicteric. Mucous membranes are moist. Neck: No jugular venous distention. Chest: She has a left upper chest wall pacemaker with fairly extensive ecchymosis. Heart: Regular rate and rhythm. No murmurs. Abdomen is distended but soft. Bowel tones are fairly normoactive. She has a midline scar inferiorly, as well as a right lower quadrant paramedian scar and a right upper quadrant subcostal scar. There are no palpable hernias. There is no erythema of the abdominal wall. Extremities: No edema. Neuro: No deficits. Psychiatric: Affect is appropriate. LABORATORIES: White count is 16.7, hematocrit 42.7, platelets 157. Creatinine 0.69, glucose 139, total bilirubin 2.5, lipase 29. INR 1.05. IMAGING: CT of the abdomen and pelvis without contrast shows a small amount of ascites. There are multiple dilated loops of small bowel relative to colon diameter with scattered air-fluid levels. Transition point is not seen. There is cardiomegaly, colonic diverticulosis, trace pericardial fluid. ASSESSMENT AND PLAN: An 85-year-old woman with partial small bowel obstruction. I suspect that she will not require surgical intervention, but we will give her a trial of conservative therapy. Because she is not vomiting, I do not think a nasogastric tube is necessary at this point, but she understands that if she does have any vomiting, a NG tube is indicated. Recommend IV fluid resuscitation. I recommend a Gastrografin challenge with administration of one bottle of Gastrografin by mouth which is both diagnostic and therapeutic for partial bowel obstructions. She was clarified again that there is no allergy to oral contrast and so this should be safe to give. We will get a follow up plain abdominal x-ray tomorrow to monitor progress of oral Gastrografin.
[2016-11-15] MEDS ORDERED: oxyCODONE-Acetamin 5-325 mg Tablet PO PRN (11:00)
--- NOTE | 2016-11-15 12:32 | NUR ---
Social Work: Initial Assessment D: EMR reviewed. Pt is a 85 y/o female admitted for SBO per H&P. SW met with pt at bedside to conduct initial assessment. Pt was alert and oriented x3. SW explained role and wrote phone number on white board in room. SW confirmed pt has completed DPOA/advanced directive and pt stated she provided a copy to the hospital in the past. Pt gave verbal consent to contact Son/DPOA, Marylu Fink, for discharge planning. Pt's insurance is Medicare and [employer]. Pt's PCP is Emy Gant MD. Pt has no hx of HH or a SNF. Pt does not have LTC insurance or VA benefits. Pt is independent with ADLs. Pt does not own or use any DME. Pt drives. Pt is independent at baseline. Pt lives alone in a single-story home with 4 steps to enter in [place]. Pt states that her [id number]-[id number] Germán Fink will provide transport home via POV when pt is medically stable. SW does not anticipate any discharge needs at this time but will continue to follow if needs arise. A: Pt who is independent at baseline. P: Pt states that her [id number] Germán Fink will provide transport home via POV when pt is medically stable. SW does not anticipate any discharge needs at this time but will continue to follow if needs arise. CLARY Morgan Addendum: 11/15/16 at 1401 by DEMARCUS NICHOLSON SS Amended: Links added.
--- NOTE | 2016-11-15 14:10 | NUR ---
GI Patient c/o nausea this morning, administered IV zofran with positive effect. C/o abdominal pain all over @ 10. Administered PO tylenol with small sip of water. Drank all of gastrographin liquid. Has not had bowel movement since monday afternoon prior to coming to hospital. Independent with ambulating in room to bathroom. Continue to monitor.
--- NOTE | 2016-11-15 14:16 | PCM.PNMED ---
Subjective Date of Service Nov 15, 2016 Subjective Patient rates abdominal pain 4/10, only taking tylenol. She is very nauseated. Just drank the gastrograffin contrast Dr. Mayo Redman ordered. No BM since arrival. Endorsing lower abdominal pain, bloated sensation. She is not passing gas. She has no oxygen requirement at HOME. She is not dyspneic but on 1L of oxygen Exam Vital Signs Vital Sign - Last Date Time Temp Pulse Resp B/P Pulse Ox O2 Delivery O2 Flow Rate FiO2 11/15/16 12:46 36.8 75 16 143/74 92 Nasal Cannula 1.00 Intake and Output 11/14/16 11/14/16 11/15/16 Cumulative From/Thru 15:00 23:00 07:00 11/14/16 22:43 - 11/15/16 06:03 Intake Total 999 ml 999 ml Output Total 920 ml 920 ml Balance 79 ml 79 ml Intake Oral 0 ml 0 ml IV Total 999 ml 999 ml Output Urine Total 920 ml 920 ml # Bowel Movements 0 0 Exam General: in mild distress, nauseated, actively vomiting green liquid,, foul smelling HEENT: NCAT Heart: systolic murmur, RRR Lungs: CTA, fine lower lobe crackles, no wheezes Abd: distended abd, RUQ bowel sounds ext: 1+ edema, varicose veins Neuro: no focal deficits Psych: Neg for anxiety IVs and Medications Medications Reviewed: Medications were reviewed in detail Lab and Diagnostics Result Diagram: 11/14/16224711/14/162247 X-Rays, CTs and MRIs CT Abd / Pelvis Interpretation 11/14 IMPRESSION: Small bowelobstruction assocaited with mesenteric whorling suggesting adhesions/internal hernia. Small volume of ascited Diverticulosis Mild cardiomegaly with pacemaker present Small pericardial effusion Non-emergent incidental findings as noted. Radiologist: Andrei Solorio MD Assessment & Plan Aliya Jerome is an 85 y.o. female with Nonischemic dilated cardiomyopathy, emphysema, GERD, hyperlipidemia, arthritis, mitral valve prolapse presenting to [facility] emergency department with complaints of diarrhea and abdominal pain 1. Acute Small bowel obstruction. Present on admission Likely due to adhesion disease from prior abdominal surgery. Differential diagnosis Volvulus, Chronic intestinal pseudo-obstruction or Ileus - nothing by mouth - General surgery consult : They ahve seen the pt and ordered gastrograffin study --She is vomiting bilious matter, NGT insertion, continuous suction: Dr. Redman surgeon is notified --added morphine , Oxycodone for pain control -- IVF at 70 cc/hr, increase to 85 cc/hr Hyperbilirubinemia: -- Ordered direct.LDH, retic count, haptoglobin, peripheral smear -- US abd ascites, liver -- She is s/p cholecystectomy Acute Diarrhea. Present on admission, resolved Patient had antibiotics exposure during her recent pacemaker procedure. Differential diagnosis includes viral gastroenteritis - stool for C difficile, she has not had a BM since arrival Nonischemic dilated cardiomyopathy with ejection fraction 30% to 35%. s/p Biventricular pacemaker Pacemaker site showed no infection - monitor on telemetry - monitor for signs of fluid overload - will hold diuretics as patient is NPO to avoid hypovolemia -- She had 9 doses of PO keflex to complete per family: Ordered Ancef equal dose to start 6/14 am. Will discuss with ID. Hypertension - continue Carvedilol 25 mg bid and losartan 50 mg bid -- may need to switch to IV metoprolol if she continues vomiting Hyperlipidemia - Hold Atorvastatin 10 mg daily GERD - holding Protonix till C difficile is ruled out -- added famotidine IV - Acetaminophen as needed for mild pain/fever/headache - Bowel regimen as needed - Antiemetic as needed She is on abx, need to figure out how much she still needs. 9 doses of keflex. Daughter in law will verify Patient admitted under inpatient status with expected length of stay > 2 midnights for severity of present symptoms, complexities of treatment plan and risk for adverse event . Pain Evaluation: Adequate Pain Control VTE Prophylaxis: Sub-Q Heparin (Unfractionated) VTE Mechanical Devices: Intermittant Pneumatic CD Resuscitation Status: CPR: Attempt Resuscitation Time spent 25 min Nata Redman DO Nov 15, 2016 14:16
[2016-11-15 14:47] LABS: Bilirubin, Direct 0.3 mg/dL (0.0-0.3)
--- NOTE | 2016-11-15 16:48 | NUR ---
NGT Patient had approx 300ml of brown/bile colored emesis. Abdomen more distended than earlier this morning. BT's less active. Order received to placed NGT. Placed without any difficulty through R side of nose on med cont suction. Approx 1700ml of greenish/brown fluid was put out within the first 15 mins. Patient is feeling slightly better. Continue to monitor.
--- NOTE | 2016-11-15 17:01 | DRSVH ---
PROCEDURE: US ABDOMEN, LIMITED ([id number]) INDICATIONS: pl check for hepatitis, ascites TECHNIQUE: Real-time focused scanning was performed of the abdomen, with image documentation. COMPARISON: [facility], CT, CT ABD PELVIS WO CON, 11/14/2016, 23:55. FINDINGS: Limited exam demonstrating trace perihepatic free fluid as well as small amount of free flu id around the spleen. Gallbladder surgically resected. Common bile duct is not well seen. Multiple fluid filled and distended bowel loops throughout the pelvis noted. IMPRESSION: 1. Small amount of perihepatic and splenic fluid present otherwise no additional ascites seen within the abdomen or pelvis. Volume of fluid present is not adequate for safe paracentesis. 2. Fluid-filled, dilated bowel loops within the lower abdomen and pelvis in this patient with history of SBO. Dictated by: Brooks Barillas [facility] Interpreted: Willie Coughlin MD on 11/15/2016 at 16:17 Approved by: Willie Coughlin M.D. on 11/15/2016 at 16:59
[2016-11-15] MEDS: PHA MIX IV SCH (23:31)
[2016-11-15] MEDS: DEXTROSE 5% IV SCH (23:31)
[2016-11-15] MEDS: CEFAZOLIN IV SCH (23:31)
[2016-11-16 04:48] VITALS: BP 105/53; PULSE 77; RESP 18; O2SAT 91
--- NOTE | 2016-11-16 05:13 | NUR ---
Transfer of Care Patient care transferred from Kwadwo Cannon RN at approximately 0200. During 0400 assessment, patients NG tube draining to cannister at low intermittent suction. Patient noted to have skin abrasion on the back. Patients abdomen is firm. No complaints of nausea or vomiting. VSS. Call light within reach. Care continues.
--- NOTE | 2016-11-16 08:10 | PROG NOTE ---
[address] [address] PROGRESS NOTE PATIENT: KASSI WILLIS : 1930 MR#: [id number] ADMIT: 11/15/2016 JOB ID: [id number] DATE: 11/16/2016 SUBJECTIVE: The patient is seen in followup. She feels much better today. Yesterday, she had a large volume emesis, followed by placement of a nasogastric tube. This was after the Gastrografin oral challenge, and reportedly she did not get very much Gastrografin down. However, after NG tube placement, she had two bowel movements overnight. Her abdomen feels much better today, but she remains mildly distended. She has no nausea. OBJECTIVE: Temperature 36.5, pulse 77, blood pressure 105/53, saturation 91% on 3 liters. General: She is resting in bed, in no acute distress. HEENT: Nasogastric tube has brownish drainage, a total of 420 cc overnight, and 1675 yesterday. Chest is clear. Heart: Regular rate and rhythm. No murmurs. Abdomen is very soft but remains mildly distended. Bowel tones are hypoactive. ASSESSMENT/PLAN: An 85-year-old woman with partial bowel obstruction. Seems to be in the process of resolving but has not completely resolved yet. We will get a plain abdominal x-ray today to re-evaluate. If the small bowel distention is significantly improved, I think her nasogastric tube could be removed. Otherwise, we will leave it in place for one more day. Surgery will continue to follow, although I think it is unlikely that she will require operative treatment.
[2016-11-16] MEDS: Famotidine Inj 20 MG in IV Premix 1 EACH IV SCH (08:24)
[2016-11-16 08:25] VITALS: BP 126/62; PULSE 77; O2SAT 92
[2016-11-16] MEDS: Heparin 5,000 Unit/mL Inj SUBQ SCH ×2 (08:25→16:33)
[2016-11-16] MEDS: Polyethylene Glycol (PEG) 17 Gm Powder PO SCH (08:30)
--- NOTE | 2016-11-16 10:19 | DRSVH ---
PROCEDURE: X-RAY KUB ([id number]) INDICATIONS: evaluate bowel obstruction TECHNIQUE: One view of the abdomen acquired. COMPARISON: [facility], CT, CT CHEST WO CON, 10/21/2016, 12:35. [facility], CR, XR CHEST 2VW, 11/09/2016, 6:35. [facility], CT, CT ABD PELVIS WO CON, 11/14/2016, 23:5 5. FINDINGS: Surgical changes and devices: Nasogastric tube present tip traversing the GE junction. Cardiac pacer leads present. Bowel: Persistent gaseous distention of small bowel loops measuring up to 5.8 cm in diameter. Residu al contrast media noted within the colon. There are multiple colonic diverticula. Soft tissues: No suspicious abdominal calcifications. Visualized solid organ contours appear normal in size. Bones: No suspicious bony lesions. Airspace opacity at the left lung base. IMPRESSION: Persistent partial small bowel obstruction. Airspace opacity present involving the left lung base suggesting atelectasis versus pneumonia or aspi ration. Small effusion may also be present. Correlate clinically. Dictated by: Brooks SANCHEZA Interpreted: Pili Jean MD on 11/16/2016 at 9:42 Approved by: Pili Jean M.D. on 11/16/2016 at 10:18
[2016-11-16] MEDS: CEFAZOLIN IV SCH ×2 (10:59→22:44)
[2016-11-16] MEDS: DEXTROSE 5% IV SCH ×2 (10:59→22:44)
[2016-11-16] MEDS: PHA MIX IV SCH ×2 (10:59→22:44)
--- NOTE | 2016-11-16 11:28 | NUR ---
Diarrhea / NG tube Pt has had diarrhea this a.m. with 5 BMs since midnight. Stool is loose and brown. Pt had a Gastrographin x-ray on 11/15, which may be contributing to the loose stools. Last BM was all liquid. Pt wearing disposable underwear with a peripad for stool incontinence. Pt c/o "muscle" pain in her lower abdomen that is 1/10 on the pain scale. NG tube on continuous low suction is draining thin brown liquid. Output so far this shift is approximately 150 mL. Pt denies nausea or vomiting. Repositioned pt in bed for comfort.
[2016-11-16] MEDS: 0.9% Sodium Chloride 1,000 ML IV SCH (12:58)
[2016-11-16 13:30] VITALS: BP 102/41; PULSE 63; RESP 18; O2SAT 92
--- NOTE | 2016-11-16 15:07 | NUR ---
Sore throat Pt c/o sore throat this p.m. She frequently falls asleep and then breathes through her mouth. Pt also has NG tube in place. Output since 429 today has been 250 mL. Sent Cook page to hospitalist requesting throat lozenges to increase pt comfort. Awaiting response.
[2016-11-16 15:55] LABS: Bilirubin, Direct 0.4 mg/dL (0.0-0.3)
[2016-11-16] MEDS ORDERED: Furosemide 10 mg/mL 2 mL Inj IVPUSH ONE (15:55)
[2016-11-16] MEDS ORDERED: Benzocaine-Menthol Lozenge 2/Pkg PO PRN (16:05)
--- NOTE | 2016-11-16 16:09 | PCM.PNMED ---
Subjective Date of Service Nov 16, 2016 Subjective Patient is seen and examined. She is endorsing impaired nausea. She has had several bowel movements some of which are formed. X-ray this a.m. showed continued partial obstruction. She has no abdominal pain. Exam Vital Signs Vital Sign - Last Date Time Temp Pulse Resp B/P Pulse Ox O2 Delivery O2 Flow Rate FiO2 11/16/16 13:30 36.7 63 18 102/41 92 Nasal Cannula 3.00 Intake and Output 11/15/16 11/15/16 11/16/16 Cumulative From/Thru 15:00 23:00 07:00 11/14/16 22:43 - 11/16/16 06:43 Intake Total 620 ml 1000 ml 2619 ml Output Total 2225 ml 930 ml 4075 ml Balance -1605 ml 70 ml -1456 ml Intake Oral 0 ml 0 ml 0 ml IV Total 620 ml 1000 ml 2619 ml Output Urine Total 250 ml 360 ml 1530 ml Stool Total 150 ml 150 ml Gastric Drainage Total 1675 ml 420 ml 2095 ml Emesis 300 ml 300 ml # Bowel Movements 2 2 Exam Gen.: No acute distress HEENT: NG tube is present and NCAT Heart: Regular rate and rhythm no S3-S4 sounds Lungs: Crackles are present on the right upper and right lower sides diminished in left lower Abdomen: Improved distention, non-tender to palpation, hyperactive bowel sounds Extremities: 1+ pitting edema Neuro: No focal deficits Neck: Trachea central Skin: Warm and dry IVs and Medications IV Fluids NSS 85 cc/hr Medications Reviewed: Medications were reviewed in detail Lab and Diagnostics Result Diagram: 11/14/16 2248 11/16/16 0529 X-Rays, CTs and MRIs CT Abd / Pelvis Interpretation 11/14 IMPRESSION: Small bowelobstruction assocaited with mesenteric whorling suggesting adhesions/internal hernia. Small volume of ascited Diverticulosis Mild cardiomegaly with pacemaker present Small pericardial effusion Non-emergent incidental findings as noted. Radiologist: Andrei Solorio MD [facility] Diagnostic [place] [address] Patient Name: ALIYA JEROME MR#: [id number] Location: [facility] Ordering Phys: Farshad Redman MD Date of Service: 11/16/16 0645 PROCEDURE: X-RAY KUB ([id number]) INDICATIONS: evaluate bowel obstruction IMPRESSION: Persistent partial small bowel obstruction. Airspace opacity present involving the left lung base suggesting atelectasis versus pneumonia or aspiration. Small effusion may also be present. Correlate clinically. Dictated by: Brooks Barillas RRA Interpreted: Pili Jean MD on 11/16/2016 at 9:42 Approved by: Pili Jean M.D. on 11/16/2016 at 10:18 Assessment & Plan Aliya Jerome is an 85 y.o. female with Nonischemic dilated cardiomyopathy, emphysema, GERD, hyperlipidemia, arthritis, mitral valve prolapse presenting to [facility] emergency department with complaints of diarrhea and abdominal pain 1. Acute Small bowel obstruction. Present on admission Likely due to adhesion disease from prior abdominal surgery. Differential diagnosis Volvulus, Chronic intestinal pseudo-obstruction or Ileus - nothing by mouth - General surgery consult : They have seen the pt and ordered gastrograffin study on 11/15 --She is vomiting bilious matter, NGT insertion, continuous suction: Dr. Redman surgeon is notified (gen surg is consulted) --added morphine , Oxycodone for pain control --NSS 85 cc/hr -- X-ray 11/16 a.m. showed persistent small bowel obstruction -- Improving. NG tube is changed is intermittent suction and later removed due to pt discomfort and improving clinical presentation/sxs. Hyperbilirubinemia: Appears to be indirect -- Ordered direct.LDH, retic count, haptoglobin, peripheral smear: LDH elevated , retic count low, haptoglobin elevated, peripheral smear is essentially normal : not a picture of hemolytic anemia -- US abd ascites, liver: "Fluid-filled, dilated bowel loops within the lower abdomen and pelvis in this patient with history of SBO. small amount of perihepatic fluid" -- She is s/p cholecystectomy Acute Diarrhea. Present on admission, active Patient had antibiotics exposure during her recent pacemaker procedure. Differential diagnosis includes viral gastroenteritis -- GI panel is ordered -- She had several BM after drinking gastrograffin Nonischemic dilated cardiomyopathy with ejection fraction 30% to 35%. s/p Biventricular pacemaker Pacemaker site showed no infection - monitor on telemetry - monitor for signs of fluid overload - will hold diuretics as patient is NPO to avoid hypovolemia -- She had 9 doses of PO keflex to complete per family: Ordered Ancef equal dose to start 6/14 am. Will discuss with ID. -- Pleural effusion noted on the chest x-ray and she is given 10 mg of IV Lasix Hypertension - continue Carvedilol 25 mg bid -- hold losartan due to low BP Hyperlipidemia - Hold Atorvastatin 10 mg daily GERD - holding Protonix till C difficile is ruled out -- added famotidine IV - Acetaminophen as needed for mild pain/fever/headache - Bowel regimen as needed - Antiemetic as needed She is on abx, need to figure out how much she still needs. 9 doses of keflex. Daughter in law will verify Patient admitted under inpatient status with expected length of stay > 2 midnights for severity of present symptoms, complexities of treatment plan and risk for adverse event . Pain Evaluation: Adequate Pain Control VTE Prophylaxis: Sub-Q Heparin (Unfractionated) VTE Mechanical Devices: Intermittant Pneumatic CD Resuscitation Status: CPR: Attempt Resuscitation Time spent 25 min Nata Redman DO Nov 16, 2016 16:09
--- NOTE | 2016-11-16 16:20 | NUR ---
Bladder scan Pt's bladder scanned at 1615 hrs and revealed 199 mL. Pt was up to the [facility] immediately after this and voided without problem.
[2016-11-16 19:29] VITALS: BP 114/51; PULSE 66; RESP 18; O2SAT 91
[2016-11-16 22:13] VITALS: BP 114/62; PULSE 69
[2016-11-17] MEDS: Heparin 5,000 Unit/mL Inj SUBQ SCH ×3 (00:42→16:56)
[2016-11-17] MEDS: 0.9% Sodium Chloride 1,000 ML IV SCH ×2 (00:43→08:36)
[2016-11-17 04:28] VITALS: BP 125/54; PULSE 67; RESP 20; O2SAT 94
[2016-11-17] MEDS: Famotidine Inj 20 MG in IV Premix 1 EACH IV SCH (08:35)
[2016-11-17] MEDS: Polyethylene Glycol (PEG) 17 Gm Powder PO SCH (08:37)
[2016-11-17 08:40] VITALS: O2SAT 87
--- NOTE | 2016-11-17 09:15 | PCM.PNSURG ---
Subjective Date of Service: Nov 17, 2016 Visit Information: Reason for Visit SBO Surgery/Surgery Date Post-Op Day # Date of Admission: Nov 15, 2016 at 01:17 Hospital Day #3 Subjective: Partially formed bowel movement this morning. Denies nausea or vomiting. Preparing to incur first liquids on physical exam this morning. Ambulatory in the room. No complaints of pain. Postop General: No Complaints Gastrointestinal: Passing Stool Pain Management: PO (Tylenol) Postop Activity: Ambulating Independently Objective Vital Sign- Last 8 Hours Date Time Temp Pulse Resp B/P Pulse Ox O2 Delivery O2 Flow Rate FiO2 11/17/16 08:40 87 Room Air 11/17/16 04:28 36.6 67 20 125/54 94 Nasal Cannula 3.00 Intake and Output- Last 8 Hour 11/17/16 Cumulative From/Thru 07:00 11/14/16 22:43 - 11/17/16 06:28 Intake Total 1361 ml 5044 ml Output Total 750 ml 5525 ml Balance 611 ml -481 ml Intake Oral 200 ml 200 ml IV Total 1161 ml 4844 ml Output Urine Total 750 ml 2480 ml Stool Total 200 ml Gastric Drainage Total 2545 ml Emesis 300 ml # Bowel Movements 1 6 General: Alert, Cooperative, No Acute Distress Lungs: Clear to Auscultation Heart: Regular Rate/Rhythm Abdomen: Soft, Non-tender, Distended, Tympanic Neuro: Normal Speech Catheters: None Result Diagram: 11/14/16 2248 11/16/16 0529 Assessment & Plan Impression Primary diagnoses: Partial small bowel obstruction. Hospital day #3, symptoms resolving. Other chronic conditions: 1. Nonischemic dilated cardiomyopathy 2. Pneumonia in May 2016 3. Emphysema 4. GERD 5. Hyperlipidemia 6. Arthritis 7. Mitral valve prolapse with mitral regurgitation 8. Hypertension 9. AV Block s/p pacemaker 10. Sleep Apnea 11. Spinal stenosis 12. Anxiety and Depression 13. Former cigarette smoker Problems: Plan Clear liquid diet, advance as tolerated. Pain Management: Tylenol VTE Prophylaxis: Sub-Q Heparin (Unfractionated) Resuscitation Status: CPR: Attempt Resuscitation Blair Jenkins PA-C Nov 17, 2016 09:15
[2016-11-17] MEDS: PHA MIX IV SCH ×2 (11:36→23:33)
[2016-11-17] MEDS: DEXTROSE 5% IV SCH ×2 (11:36→23:33)
[2016-11-17] MEDS: CEFAZOLIN IV SCH ×2 (11:36→23:33)
--- NOTE | 2016-11-17 12:27 | NUR ---
Nutrition Pt has denied any pain or nausea all shift. Pt advanced to a clear liquid diet and patient was able to tolerate this without any increased pain or difficulties. Pt's abdomen is distended but soft. Pt reports having had a formed bowel movement today. Pt ambulating in room to the bathroom with stand by assist, steady on her feet. Cont to monitor.
[2016-11-17 15:32] VITALS: BP 147/58; PULSE 63; RESP 16; O2SAT 95
--- NOTE | 2016-11-17 16:15 | NUR ---
Social Work: Readiness for Discharge D: EMR reviewed. Pt is a 85 y/o female admitted for SBO per H&P. Pt is not medically stable, anticipate discharge tomorrow. Pt will need to wean O2. Pt's diet to be advanced today. Pt is independent at baseline. GIANNI has acknowledged HH order from . When asked about this in rounds, continues to follow for HH need but requested that RETAIL ATTENDANT not act on this order at this time. SW will act on this order only when MD requests it. SW will continue to check in during morning rounds. Pt's [id number] Germán Fink will provide transport home via POV when pt is medically stable. SW does not anticipate any discharge needs at this time but will continue to follow if needs arise. A: Pt who is independent at baseline. P: SW will continue to follow for HH need, but states that RETAIL ATTENDANT should not act on this order at this time. Pt's [id number] Germán Fink will provide transport home via POV when pt is medically stable. GIANNI does not anticipate any discharge needs at this time but will continue to follow if needs arise. Jaycee Benitez, RETAIL ATTENDANT
[2016-11-17] MEDS ORDERED: Fluticasone 0.05% 15 Spray/2 Gm 16 Gm Nasal Spray NASAL PRN (19:20)
[2016-11-17] MEDS: Furosemide 10 mg/mL 2 mL Inj IVPUSH SCH (20:29)
[2016-11-17] MEDS ORDERED: [UNRECOGNIZED DRUG - OTHER] PO SCH (20:30)
[2016-11-17 21:50] VITALS: BP 122/54; PULSE 67; RESP 20; O2SAT 93
[2016-11-17] MEDS: D5 0.45% NaCl + KCl 20 mEq/L 1,000 ML IV SCH (23:00)
[2016-11-17] MEDS: Ondansetron 2 mg/mL 2 mL Inj IVPUSH PRN (23:02)
[2016-11-18] MEDS: Heparin 5,000 Unit/mL Inj SUBQ SCH ×3 (00:52→16:48)
--- NOTE | 2016-11-18 01:02 | PCM.PNMED ---
Subjective Date of Service Nov 17, 2016 Subjective The patient is seen and examined. She states that she is starting to feel bloated, gassy and uncomfortable again. She has been on clear liquids all day. She is not yet nauseated, but she is definitely noting abdominal increased distention. She says that the pressure sensation is painful. No other concerns. Exam Vital Signs Vital Sign - Last Date Time Temp Pulse Resp B/P Pulse Ox O2 Delivery O2 Flow Rate FiO2 11/17/16 21:50 36.9 67 20 122/54 93 Nasal Cannula 2.00 Intake and Output 11/17/16 11/17/16 11/18/16 Cumulative From/Thru 15:00 23:00 07:00 11/14/16 22:43 - 11/17/16 18:20 Intake Total 490 ml 5534 ml Output Total 550 ml 6075 ml Balance -60 ml -541 ml Intake Oral 490 ml 690 ml IV Total 4844 ml Output Urine Total 550 ml 3030 ml Stool Total 200 ml Gastric Drainage Total 2545 ml Emesis 300 ml # Bowel Movements 1 7 Lab and Diagnostics Result Diagram: 11/14/16 2248 11/16/16 0529 X-Rays, CTs and MRIs CT Abd / Pelvis Interpretation 11/14 IMPRESSION: Small bowelobstruction assocaited with mesenteric whorling suggesting adhesions/internal hernia. Small volume of ascited Diverticulosis Mild cardiomegaly with pacemaker present Small pericardial effusion Non-emergent incidental findings as noted. Radiologist: Andrei Solorio MD [facility] Diagnostic Imaging Department [place], [place] [id number] Patient Name: ALIYA JEROME MR#: [id number] [place] [facility]ing Phys: Farshad Redman MD Date of Service: 11/16/16 0645 PROCEDURE: X-RAY KUB ([id number]) INDICATIONS: evaluate bowel obstruction IMPRESSION: Persistent partial small bowel obstruction. Airspace opacity present involving the left lung base suggesting atelectasis versus pneumonia or aspiration. Small effusion may also be present. Correlate clinically. Dictated by: Brooks Barillas A Interpreted: Pili Jean MD on 11/16/2016 at 9:42 Approved by: Pili Jean M.D. on 11/16/2016 at 10:18 Assessment & Plan Aliya Jerome is an 85 y.o. female with Nonischemic dilated cardiomyopathy, emphysema, GERD, hyperlipidemia, arthritis, mitral valve prolapse presenting to [facility] emergency department with complaints of diarrhea and abdominal pain 1. Acute Small bowel obstruction. Present on admission Likely due to adhesion disease from prior abdominal surgery. Differential diagnosis Volvulus, Chronic intestinal pseudo-obstruction or Ileus - nothing by mouth - General surgery consult : They have seen the pt and ordered gastrograffin study on 11/15, She is vomiting bilious matter, NGT insertion, continuous suction : Dr. Redman surgeon is notified (gen surg is consulted) --added morphine , Oxycodone for pain control -- 11/16 Improving. NG tube is changed is intermittent suction and later removed due to pt discomfort and improving clinical presentation/sxs. NG tube is removed later that day. Abdominal film done in the morning showed incomplete resolution of small bowel obstruction. I personally reviewed the x- ray. -- 11/17 patient is worse today after advancing diet: Back from diet, patient is made nothing by mouth.. She did have a small bowel movement in the morning. -- IV fluids 80 mL/h D5 half normal with 20 meq potassium -- she may need NGT put back 11/18/ am Hyperbilirubinemia: Appears to be indirect -- Ordered direct.LDH, retic count, haptoglobin, peripheral smear: LDH elevated , retic count low, haptoglobin elevated, peripheral smear is essentially normal : not a picture of hemolytic anemia -- US abd ascites, liver: "Fluid-filled, dilated bowel loops within the lower abdomen and pelvis in this patient with history of SBO. small amount of perihepatic fluid" -- She is s/p cholecystectomy Acute Diarrhea. Present on admission, active Patient had antibiotics exposure during her recent pacemaker procedure. Differential diagnosis includes viral gastroenteritis -- GI panel is ordered: Negative -- She had several BM after drinking gastrograffin -- 11/16 abdominal filmshowed incomplete resolution of obstruction Nonischemic dilated cardiomyopathy with ejection fraction 30% to 35%. s/p Biventricular pacemaker Pacemaker site showed no infection - monitor on telemetry - monitor for signs of fluid overload - will hold diuretics as patient is NPO to avoid hypovolemia -- She had 9 doses of PO keflex to complete per family: Ordered Ancef equal dose to start 11/16 am. Will discuss with ID. -- 11/16 Pleural effusion noted on the chest x-ray and she is given 10 mg of IV Lasix -- Started patient on Lasix IV 10 mg daily as she is not getting her home meds Hypertension - continue Carvedilol 25 mg bid -- hold losartan due to low BP Hyperlipidemia - Hold Atorvastatin 10 mg daily GERD - holding Protonix till C difficile is ruled out -- added famotidine IV - Acetaminophen as needed for mild pain/fever/headache - Bowel regimen as needed - Antiemetic as needed Patient admitted under inpatient status with expected length of stay > 2 midnights for severity of present symptoms, complexities of treatment plan and risk for adverse event. Continue Keflex/Ancef prophylaxis for pacemaker placement . VTE Prophylaxis: Sub-Q Heparin (Unfractionated) VTE Mechanical Devices: Intermittant Pneumatic CD Resuscitation Status: CPR: Attempt Resuscitation Time spent 20 min Nata Redman DO Nov 18, 2016 01:02
--- NOTE | 2016-11-18 01:10 | NUR ---
Activity/Bowel Movement On initial assessment, patients abdomen was firm and distended. Patient states pain 4/10 on pain scale but did not request pain medication. Patient ambulating well to br. VSS. On reassessment, patient states some nausea. Zofran 4mg administered IVP. Patient proceeded to have a bowel movement. Patient stated pain subsided. Call light within reach. Care continues.
[2016-11-18 01:50] VITALS: BP 124/50; PULSE 67; RESP 20; O2SAT 92
--- NOTE | 2016-11-18 05:46 | NUR ---
Patient Reaction to NPO orders Patient would like it to be known that she does not want another NG tube inserted. After her bowel movement last evening, she states that she feels better. Nurse will relay message to oncoming day shift nurse.
[2016-11-18 05:50] VITALS: BP 148/67; PULSE 73; RESP 20; O2SAT 92
[2016-11-18 06:10] LABS: Mean Corpuscular Hemoglobin 30.5 pg (27.0-35.0)
[2016-11-18] MEDS: D5 0.45% NaCl + KCl 20 mEq/L 1,000 ML IV SCH ×2 (08:00→13:41)
[2016-11-18] MEDS ORDERED: LACTOBACILLUS ACIDOPHILUS PO SCH (08:30)
[2016-11-18] MEDS: Polyethylene Glycol (PEG) 17 Gm Powder PO SCH (08:30)
[2016-11-18] MEDS: Famotidine Inj 20 MG in IV Premix 1 EACH IV SCH (09:12)
--- NOTE | 2016-11-18 09:14 | PCM.PNSURG ---
Subjective Date of Service: Nov 18, 2016 Visit Information: Reason for Visit SBO Surgery/Surgery Date Post-Op Day # Date of Admission: Nov 15, 2016 at 01:17 Hospital Day #4 Subjective: Described episode of abdominal pain overnight that was relieved with some type of a laxative. Following the laxative the patient had a large amount of formed stool which relieved the abdominal pain. She was drinking liquids yesterday with no nausea or vomiting and would like to continue drinking liquids today. She has no other pain other than the abdominal pain that she experienced overnight. She is ambulatory in the hallway without assistance. Postop General: Other (as above) Gastrointestinal: Tolerating Oral Feedings, No N/V, Passing Stool Pain Management: No or Minimal Pain Postop Activity: Ambulating Independently Objective Vital Sign- Last 8 Hours Date Time Temp Pulse Resp B/P Pulse Ox O2 Delivery O2 Flow Rate FiO2 11/18/16 05:50 36.5 73 20 148/67 92 Nasal Cannula 2.00 11/18/16 01:50 37.0 67 20 124/50 92 Nasal Cannula 2.00 Intake and Output- Last 8 Hour 11/18/16 Cumulative From/Thru 07:00 11/14/16 22:43 - 11/18/16 06:22 Intake Total 1917 ml 7451 ml Output Total 6075 ml Balance 1917 ml 1376 ml Intake Oral 690 ml IV Total 1917 ml 6761 ml Output Urine Total 3030 ml Stool Total 200 ml Gastric Drainage Total 2545 ml Emesis 300 ml # Bowel Movements 7 General: Alert, Cooperative, No Acute Distress Lungs: Clear to Auscultation Heart: Regular Rate/Rhythm Abdomen: Soft, Distended, No masses, Tympanic Extremities: Thigh&Calf Soft/Nontender Neuro: Normal Speech Catheters: None Result Diagram: 11/18/1613 11/18/16 05 Assessment & Plan Impression Primary diagnoses: Partial small bowel obstruction. Hospital day #4, having bowel movements but abdomen is still distended. Other chronic conditions: 1. Nonischemic dilated cardiomyopathy 2. Pneumonia in May 2016 3. Emphysema 4. GERD 5. Hyperlipidemia 6. Arthritis 7. Mitral valve prolapse with mitral regurgitation 8. Hypertension 9. AV Block s/p pacemaker 10. Sleep Apnea 11. Spinal stenosis 12. Anxiety and Depression 13. Former cigarette smoker Problems: Plan Continue clear liquids. No surgical intervention is indicated at this time. Pain Management: Oral Tylenol VTE Prophylaxis: Sub-Q Heparin (Unfractionated) Resuscitation Status: CPR: Attempt Resuscitation Blair Jenkins PA-C Nov 18, 2016 09:14
--- NOTE | 2016-11-18 10:43 | NUR ---
NUTRITION ASSESSMENT: ASSESS: Pt is an 85yo F admitted for SBO. NGT was removed 11/17. She was on a CL diet but had increased abdomen distention and was made NPO again. She has had 3 BM this am. Pt has been NPO/CL x3 days. PMHX: cardiomyopathy, emphysema, GERD, HLD, MV prolapse, arthritis LABS: Reviewed. Medical Assistant Float .56, Glu 112, Ca 7.9, Alb 2.9 MEDS: Reviewed. Lasix, miralax, zofran GI: BMx3 11/18, NGT removed SKIN: no issues noted CURRENT WTS: 60.9kg, BMI 21.7kg/m2 DIET: NPO/CL EST. NEEDS: Kcals: 1530-1830kcal/day (25-30kcal/kg) Pro: 60-75g/day (1.0-1.2g/kg) Fluids: ~1530-1830ml/day (25-30ml/kg) NUTRITION DIAGNOSIS: 1.) Inadequate oral intake related to altered GI function as evidenced by current NPO/CL status NUTRITION INTERVENTION: 1.) Recommend advance diet when medically appropriate 2.) If pt continues to require bowel rest and NPO status, recommend consider nutrition support. If TPN to start over the weekend, recommend 135g Dex, 40g AA and 25g lipids to provide 869kcal and 40g pro (~50% estimated needs). Goal TPN macronutrients of 270g Dex, 75g AA and 50g lipids to provide 1718kcal and 75g pro (100% estimated needs) MONITOR / EVAL: NPO, diet advc? Wt, GI, labs, nutrition support?, POC, nutrition status. Will continue to monitor per high nutrition risk guidelines.
[2016-11-18] MEDS: Furosemide 10 mg/mL 2 mL Inj IVPUSH SCH (10:55)
[2016-11-18] MEDS: DEXTROSE 5% IV SCH ×2 (11:43→23:29)
[2016-11-18] MEDS: CEFAZOLIN IV SCH ×2 (11:43→23:29)
[2016-11-18] MEDS: PHA MIX IV SCH ×2 (11:43→23:29)
--- NOTE | 2016-11-18 13:25 | DRSVH ---
PROCEDURE: X-RAY ABDOMEN WITH ERECT AND/OR DECUBITUS VIEWS ([id number]) INDICATIONS: partial SBO TECHNIQUE: 2 views of the abdomen were acquired. COMPARISON: [facility], CR, XR CHEST 2VW, 11/09/2016, 6:35. [facility], CR, XR KUB, 11/16/2016, 7:50. FINDINGS: Surgical changes and devices: Nasogastric tube has been removed. Pacer leads redemonstrated incomple tely visualized. Bowel: Persistent gaseous distention of small bowel loops measuring up to 5.7 cm in diameter with the upright examination demonstrating differential air-fluid levels.. Small amount of gas within the co valarie. Soft tissues: No suspicious abdominal calcifications. Visualized solid organ contours appear normal in size. Bones: No suspicious bony lesions. Airspace opacity redemonstrated at the left lung base and linear opacity projected over the mid right lung. IMPRESSION: 1. Persistent small bowel obstruction. 2. Air space opacity at the left lung base and small pleural effusions redemonstrated and probable at electasis within the mid right lung. Dictated by: Brooks Barillas [facility] Interpreted: Katelyn Blanchard MD on 11/18/2016 at 10:10 Approved by: Katelyn Blanchard MD, PhD on 11/18/2016 at 13:23
[2016-11-18 18:00] VITALS: BP 130/70; PULSE 76; RESP 18; O2SAT 93
--- NOTE | 2016-11-18 18:27 | NUR ---
Diet / ABD Pt tolerating clear liquid diet at this time. Ambulating well with steady gait. ABD continues to be bloated and distended. Passing gas and having liquid stools. A&OX4. Denies CP, SOB, Nausea at this time. Care continues
[2016-11-18 20:51] VITALS: BP 141/71; PULSE 83; RESP 20; O2SAT 92
--- NOTE | 2016-11-18 21:16 | PCM.PNMED ---
Subjective Date of Service Nov 18, 2016 Subjective Patient has had a large BM overnight and felt better. This am diet is once againa dvanced to clears by surgery PA and she says he abdomen is startling to look bigger but it is not bothering her. She is passing gas, no abdominal pain. No other concerns. Exam Vital Signs Vital Sign - Last Date Time Temp Pulse Resp B/P Pulse Ox O2 Delivery O2 Flow Rate FiO2 11/18/16 20:51 36.4 83 20 141/71 92 Nasal Cannula 2.00 Intake and Output 11/17/16 11/17/16 11/18/16 Cumulative From/Thru 15:00 23:00 07:00 11/14/16 22:43 - 11/18/16 06:22 Intake Total 490 ml 1917 ml 7451 ml Output Total 550 ml 6075 ml Balance -60 ml 1917 ml 1376 ml Intake Oral 490 ml 690 ml IV Total 1917 ml 6761 ml Output Urine Total 550 ml 3030 ml Stool Total 200 ml Gastric Drainage Total 2545 ml Emesis 300 ml # Bowel Movements 1 7 Exam Gen.: No acute distress HEENT: NG tube is present and NCAT Heart: Regular rate and rhythm no S3-S4 sounds Lungs: Crackles are present on the right upper and right lower sides diminished in left lower Abdomen: Improved distension, non-tender to palpation, normal bowel sounds Extremities: 1+ pitting edema Neuro: No focal deficits Neck: Trachea central, positive for right sided jvd ) has this at baseline) Skin: Warm and dry IVs and Medications IV Fluids NSS 80 cc/hr Medications Reviewed: Medications were reviewed in detail Lab and Diagnostics Result Diagram: 11/18/1651211/18/16512 X-Rays, CTs and MRIs IMPRESSION: 1. Persistent small bowel obstruction. 2. Air space opacity at the left lung base and small pleural effusions redemonstrated and probable atelectasis within the mid right lung. Dictated by: Brooks ESCOBEDO Interpreted: Katelyn Blanchard MD on 11/18/2016 at 10:10 Approved by: Katelyn Blanchard MD, PhD on 11/18/2016 at 13:23 CT Abd / Pelvis Interpretation 11/14 IMPRESSION: Small bowelobstruction assocaited with mesenteric whorling suggesting adhesions/internal hernia. Small volume of ascited Diverticulosis Mild cardiomegaly with pacemaker present Small pericardial effusion Non-emergent incidental findings as noted. Radiologist: Andrei Solorio MD Date of Service: 11/16/16 0645 PROCEDURE: X-RAY KUB ([id number]) INDICATIONS: evaluate bowel obstruction IMPRESSION: Persistent partial small bowel obstruction. Airspace opacity present involving the left lung base suggesting atelectasis versus pneumonia or aspiration. Small effusion may also be present. Correlate clinically. Dictated by: Brooks Barillas RRA Interpreted: Pili Jean MD on 11/16/2016 at 9:42 Approved by: Pili Jean M.D. on 11/16/2016 at 10:18 Assessment & Plan Aliya Jerome is an 85 y.o. female with Nonischemic dilated cardiomyopathy, emphysema, GERD, hyperlipidemia, arthritis, mitral valve prolapse presenting to [facility] emergency department with complaints of diarrhea and abdominal pain Acute Small bowel obstruction. Present on admission Likely due to adhesion disease from prior abdominal surgery. Differential diagnosis Volvulus, Chronic intestinal pseudo-obstruction or Ileus - nothing by mouth - General surgery consult : They have seen the pt and ordered gastrograffin study on 11/15, She is vomiting bilious matter, NGT insertion, continuous suction : Dr. Redman surgeon is notified (gen surg is consulted) --added morphine , Oxycodone for pain control -- 11/16 Improving. NG tube is changed is intermittent suction and later removed due to pt discomfort and improving clinical presentation/sxs. NG tube is removed later that day. Abdominal film done in the morning showed incomplete resolution of small bowel obstruction. I personally reviewed the x- ray. -- 11/17 patient is worse today after advancing diet: Back from diet, patient is made nothing by mouth.. She did have a small bowel movement in the morning. -- IV fluids NSS 30 cc/hr. She has clear liquid diet and she has CHF -- Abd x-ray shows continued partial bowel obs. Surgery wants conservative approach in this elderly lady with many comorbidities. Hypoxia: Likely due to not taking deep breaths -- On 1L today -- Continue to monitor Hyperbilirubinemia: Appears to be indirect -- Ordered direct.LDH, retic count, haptoglobin, peripheral smear: LDH elevated , retic count low, haptoglobin elevated, peripheral smear is essentially normal : not a picture of hemolytic anemia -- US abd ascites, liver: "Fluid-filled, dilated bowel loops within the lower abdomen and pelvis in this patient with history of SBO. small amount of perihepatic fluid" -- She is s/p cholecystectomy Postop prophylactic abx from recent pacemaker placement: -- Can stop on Monday Acute Diarrhea. Present on admission, active Patient had antibiotics exposure during her recent pacemaker procedure. Differential diagnosis includes viral gastroenteritis -- GI panel is ordered: Negative -- She had several BM after drinking gastrograffin -- 11/16 abdominal filmshowed incomplete resolution of obstruction -- Stool PCR is negative Nonischemic dilated cardiomyopathy with ejection fraction 30% to 35%. s/p Biventricular pacemaker Pacemaker site showed no infection - monitor on telemetry - monitor for signs of fluid overload - will hold diuretics as patient is NPO to avoid hypovolemia -- She had 9 doses of PO keflex to complete per family: Ordered Ancef equal dose to start 11/16 am. Will discuss with ID. -- 11/16 Pleural effusion noted on the chest x-ray and she is given 10 mg of IV Lasix -- Started patient on Lasix IV 10 mg daily as she is not getting her home meds Hypertension - continue Carvedilol 25 mg bid -- hold losartan due to low BP Hyperlipidemia - Hold Atorvastatin 10 mg daily GERD - holding Protonix till C difficile is ruled out -- added famotidine IV - Acetaminophen as needed for mild pain/fever/headache - Bowel regimen as needed - Antiemetic as needed Patient admitted under inpatient status with expected length of stay > 2 midnights for severity of present symptoms, complexities of treatment plan and risk for adverse event. Continue Keflex/Ancef prophylaxis for pacemaker placement. She can d/c home if tolerating advanced diet. Likely d/c on . Pain Evaluation: Adequate Pain Control VTE Prophylaxis: Sub-Q Heparin (Unfractionated) VTE Mechanical Devices: Intermittant Pneumatic CD Resuscitation Status: CPR: Attempt Resuscitation Time spent 25 min Nata Redman DO Nov 18, 2016 21:16
[2016-11-19] MEDS: Heparin 5,000 Unit/mL Inj SUBQ SCH ×3 (01:49→17:29)
[2016-11-19] MEDS: 0.9% Sodium Chloride 1,000 ML IV SCH ×2 (01:49→21:20)
[2016-11-19 04:55] VITALS: BP 119/62; PULSE 80; RESP 16; O2SAT 93
--- NOTE | 2016-11-19 05:22 | NUR ---
ABD/ACTIVITY PT HAS 0 C/O NV OR PAIN. UP TO BR INDEPENDENTLY. CONTINUES TO HAVE LOOSE STOOLS AND ABDOMEN IS DISTENDED. SHE STATES IT IS NOT PAINFUL JUST A LITTLE CRAMPY WHEN SHE HAS TO GO. TOLERATING CLEAR DIET. CARE CONTINUES
[2016-11-19 05:52] LABS: Mean Corpuscular Hemoglobin 30.7 pg (27.0-35.0); Mean Corpuscular Volume 99.1 fL (81-100)
[2016-11-19] MEDS: Polyethylene Glycol (PEG) 17 Gm Powder PO SCH (08:30)
[2016-11-19] MEDS: Famotidine Inj 20 MG in IV Premix 1 EACH IV SCH (08:37)
[2016-11-19] MEDS: Furosemide 10 mg/mL 2 mL Inj IVPUSH SCH (08:38)
--- NOTE | 2016-11-19 09:08 | PCM.PNSURG ---
Subjective Visit Information: Reason for Visit SBO Surgery/Surgery Date Post-Op Day # Date of Admission: Nov 15, 2016 at 01:17 Hospital Day # Subjective: had a BM yesterday, toleating clears, but abd distention is about the same as yesterday, passing some flatus Objective Objective Awake up in chair Daughter in law in room as well Abd: distended, tympanic, but soft and nontender on exam Vital Sign- Last 8 Hours Date Time Temp Pulse Resp B/P Pulse Ox O2 Delivery O2 Flow Rate FiO2 11/19/16 04:55 36.9 80 16 119/62 93 Nasal Cannula 2.00 Intake and Output- Last 8 Hour 11/19/16 Cumulative From/Thru 07:00 11/14/16 22:43 - 11/19/16 05:19 Intake Total 642 ml 07802 ml Output Total 7550 ml Balance 642 ml 2993 ml Intake Oral 2190 ml IV Total 642 ml 8353 ml Output Urine Total 4505 ml Stool Total 200 ml Gastric Drainage Total 2545 ml Emesis 300 ml # Voids 4 # Bowel Movements 13 Result Diagram: 11/19/16 0530 11/19/16 0530 Assessment & Plan Impression Persistent PSBO Problems: Plan Will check abd xrays today Consider repeat po gastrograffin study vs. a repeat CT scan with oral contrast Ambulate Continue clears for now VTE Prophylaxis: Sub-Q Heparin (Unfractionated) Resuscitation Status: CPR: Attempt Resuscitation Anderson Patino MD Nov 19, 2016 09:08
[2016-11-19 10:40] VITALS: BP 100/60; PULSE 70; RESP 18; O2SAT 93
[2016-11-19] MEDS: DEXTROSE 5% IV SCH ×2 (11:22→23:55)
[2016-11-19] MEDS: PHA MIX IV SCH ×2 (11:22→23:55)
[2016-11-19] MEDS: CEFAZOLIN IV SCH ×2 (11:22→23:55)
--- NOTE | 2016-11-19 12:05 | NUR ---
Evaluation completed. Please go to "Notes" then click on "Assessments and Notes" (bottom left corner of screen). Then select appropriate discipline tab on top of screen.
--- NOTE | 2016-11-19 12:10 | DRSVH ---
PROCEDURE: X-RAY ABDOMEN WITH ERECT AND/OR DECUBITUS VIEWS ([id number]) INDICATIONS: follow up Small bowel obstruction TECHNIQUE: 2 views of the abdomen were acquired. COMPARISON: [facility], CR, XR ABD W ERECT + OR DECUB 2 VW, 11/18/2016, 9:35. FINDINGS: Surgical changes and devices: None. Bowel: No pneumoperitoneum. Bowel gas pattern shows a: Not to be empty of air. Dilated small bowel l oops are present. Multiple air-fluid levels are seen. Soft tissues: No masses; visualized solid organ contours appear normal in size. No suspicious abdom inal calcifications. Bones: No suspicious bony abnormalities. IMPRESSION: Small bowel obstruction probably slightly worse than on 11/18/16. Dictated by: Mukesh Velazquez M.D. on 11/19/2016 at 12:07 Approved by: Mukesh Velazquez M.D. on 11/19/2016 at 12:09
--- NOTE | 2016-11-19 13:03 | NUR ---
Gastrografin / allergy Paged MD Patino and confirmed to go ahead with Gastrografin study order as pt shows allergy to contrast media. Per MD Patino "go ahead; pt has has this study in the past and was fine. Go ahead and have her drink the Gastrografin." Pt completed drinking gastrografin @ 1pm. Pt advised to notify staff if she feels fever, chills, hot, rash or itchy, CP, SOB, etc. Will continue to monitor. Addendum: 11/19/16 at 1450 by VITALIY CABRERA RN Pt got up to ambulate and has been experiencing some nausea. No vomiting at this time. Offered alcohol wipes to wave in front of nose as well as cool rag and Zofran. Will monitor.
--- NOTE | 2016-11-19 14:32 | PCM.PNMED ---
Subjective Date of Service Nov 19, 2016 Subjective Patient is seen and examined. She states that she is not nauseated, she has no dyspnea but she does have abdominal distension. POLST shows DNR/DNI. Surgery has seen pt and ordered an abdominal film Exam Vital Signs Vital Sign - Last Date Time Temp Pulse Resp B/P Pulse Ox O2 Delivery O2 Flow Rate FiO2 11/19/16 10:40 36.9 70 18 100/60 93 Nasal Cannula 2.00 Intake and Output 11/18/16 11/18/16 11/19/16 Cumulative From/Thru 15:00 23:00 07:00 11/14/16 22:43 - 11/19/16 05:19 Intake Total 620 ml 1830 ml 642 ml 01721 ml Output Total 800 ml 675 ml 7550 ml Balance -180 ml 1155 ml 642 ml 2993 ml Intake Oral 620 ml 880 ml 2190 ml IV Total 950 ml 642 ml 8353 ml Output Urine Total 800 ml 675 ml 4505 ml Stool Total 200 ml Gastric Drainage Total 2545 ml Emesis 300 ml # Voids 4 4 # Bowel Movements 3 3 13 Exam General: NAD HEENT: NCAT Neck: positive for right sided neck vein distension Heart: Regular rate and rhythm no S3-S4 sounds Lungs: much improved lung sounds from yesterday Abdomen: worsened distension, non-tender to palpation, normal bowel sounds Extremities: 1+ pitting edema Neuro: No focal deficits Skin: Warm and dry IVs and Medications IV Fluids NSS 30 cc/hr Medications Reviewed: Medications were reviewed in detail Lab and Diagnostics Result Diagram: 11/19/16 0530 11/19/16 0530 X-Rays, CTs and MRIs PROCEDURE: X-RAY ABDOMEN WITH ERECT AND/OR DECUBITUS VIEWS ([id number]) INDICATIONS: follow up Small bowel obstruction IMPRESSION: Small bowel obstruction probably slightly worse than on 11/18/16. Dictated by: Mukesh Velazquez M.D. on 11/19/2016 at 12:07 Approved by: Mukesh Velazquez M.D. on 11/19/2016 at 12:09 IMPRESSION: 1. Persistent small bowel obstruction. 2. Air space opacity at the left lung base and small pleural effusions redemonstrated and probable atelectasis within the mid right lung. Dictated by: Brooks ESCOBEDO Interpreted: Katelyn Blanchard MD on 11/18/2016 at 10:10 Approved by: Katelyn Blanchard MD, PhD on 11/18/2016 at 13:23 CT Abd / Pelvis Interpretation 11/14 IMPRESSION: Small bowelobstruction assocaited with mesenteric whorling suggesting adhesions/internal hernia. Small volume of ascited Diverticulosis Mild cardiomegaly with pacemaker present Small pericardial effusion Non-emergent incidental findings as noted. Radiologist: Andrei Solorio MD Date of Service: 11/16/16 0645 PROCEDURE: X-RAY KUB ([id number]) INDICATIONS: evaluate bowel obstruction IMPRESSION: Persistent partial small bowel obstruction. Airspace opacity present involving the left lung base suggesting atelectasis versus pneumonia or aspiration. Small effusion may also be present. Correlate clinically. Dictated by: Brooks ESCOBEDO Interpreted: Pili Jean MD on 11/16/2016 at 9:42 Approved by: Pili Jean M.D. on 11/16/2016 at 10:18 Assessment & Plan Aliya Jerome is an 85 y.o. female with Nonischemic dilated cardiomyopathy, emphysema, GERD, hyperlipidemia, arthritis, mitral valve prolapse presenting to [facility] emergency department with complaints of diarrhea and abdominal pain Acute Partial Small bowel obstruction. Present on admission - nothing by mouth - General surgery consult : They have seen the pt and ordered gastrograffin study on 11/15, She is vomiting bilious matter, NGT insertion, continuous suction : Dr. Redman surgeon is notified (gen surg is consulted) --added morphine , Oxycodone for pain control -- 11/16 Improving. NG tube is changed is intermittent suction and later removed due to pt discomfort and improving clinical presentation/sxs. NG tube is removed later that day. Abdominal film done in the morning showed incomplete resolution of small bowel obstruction. I personally reviewed the x- ray. -- 11/17 patient is worse today after advancing diet: Back from diet, patient is made nothing by mouth.. She did have a small bowel movement in the morning. -- IV fluids NSS 30 cc/hr. She has clear liquid diet and she has CHF -- Abd x-ray shows continued partial bowel obs. Surgery wants conservative approach in this elderly lady with many comorbidities. -- 11/19 Repeat abd x-ray showed no improvement, I reviewed this personally. Surgery is doing a gastrograffin study again. Patient states she is becoming nauseated again. -- NSS 30 cc/hr as she is allowed to drink clears + gastrograffin. will carefully increase fluids if she had too much fluid losses on 11/20 Hypoxia: Likely due to not taking deep breaths -- On 1L today -- Continue to monitor Hyperbilirubinemia: Appears to be indirect -- Ordered direct.LDH, retic count, haptoglobin, peripheral smear: LDH elevated , retic count low, haptoglobin elevated, peripheral smear is essentially normal : not a picture of hemolytic anemia -- US abd ascites, liver: "Fluid-filled, dilated bowel loops within the lower abdomen and pelvis in this patient with history of SBO. small amount of perihepatic fluid" -- She is s/p cholecystectomy Postop prophylactic abx from recent pacemaker placement: She is on IV Ancef for pacemaker placement prophylaxis -- Can stop on Monday Acute Diarrhea. Present on admission, active Patient had antibiotics exposure during her recent pacemaker procedure. Differential diagnosis includes viral gastroenteritis -- GI panel is ordered: Negative -- 11/18 Abd film showed worsened partial SBO -- This is runny BM, likely due to partial sBO, not diarrhea Nonischemic dilated cardiomyopathy with ejection fraction 30% to 35%. s/p Biventricular pacemaker Pacemaker site showed no infection - monitor on telemetry - monitor for signs of fluid overload - will hold diuretics as patient is NPO to avoid hypovolemia -- She had 9 doses of PO keflex to complete per family: Ordered Ancef equal dose to start 11/16 am. Will discuss with ID. -- 11/16 Pleural effusion noted on the chest x-ray and she is given 10 mg of IV Lasix -- Started patient on Lasix IV 10 mg daily as she is not getting her home meds Hypertension - continue Carvedilol 25 mg bid -- hold losartan due to low BP Hyperlipidemia - Hold Atorvastatin 10 mg daily GERD -- famotidine IV - Acetaminophen as needed for mild pain/fever/headache - Bowel regimen as needed - Antiemetic as needed Patient admitted under inpatient status with expected length of stay > 2 midnights for severity of present symptoms, complexities of treatment plan and risk for adverse event. Continue Keflex/Ancef prophylaxis for pacemaker placement. She can d/c home if tolerating advanced diet. Likely d/c on . Home with 3 times a day . VTE Prophylaxis: Sub-Q Heparin (Unfractionated) VTE Mechanical Devices: Intermittant Pneumatic CD Resuscitation Status: CPR: Attempt Resuscitation Time spent 25 min Nata Redman DO Nov 19, 2016 14:32
[2016-11-19] MEDS: Ondansetron 2 mg/mL 2 mL Inj IVPUSH PRN ×2 (14:48→17:30)
[2016-11-19 20:01] VITALS: BP 122/68; PULSE 76; RESP 16; O2SAT 93
--- NOTE | 2016-11-19 21:19 | DRSVH ---
PROCEDURE: X-RAY GASTROGRAFIN CHALLENGE, 1 VIEW ABDOMEN INDICATIONS: gastrograffin challenge via p.o. route TECHNIQUE: One view of the abdomen acquired. COMPARISON: None. FINDINGS: Surgical changes and devices: None. Bowel: Bowel gas pattern is abnormal. It hours prior to this film the patient ingested some Gastrogr afin. The vast majority is out of the stomach. The position of the contrast into the gastrointestinal tract is difficult to determine. It is likely to be in small bowel. I don't appreciate any emboli wo uld consider descending colon Soft tissues: No suspicious abdominal calcifications. Visualized solid organ contours appear normal in size. Bones: No suspicious bony lesions. IMPRESSION: Probable Gastrografin and small bowel loops. There are dilated loops present. The appeara nce would suggest small bowel obstruction. A followup film several hours from now may be useful or a CT scan to located the position of these loops. Dictated by: Mukesh Velazquez M.D. on 11/19/2016 at 21:10 Approved by: Mukesh Velazquez M.D. on 11/19/2016 at 21:17
--- NOTE | 2016-11-20 04:01 | NUR ---
Nausea C/O nausea at start of shift, unable to administer dose of anti-emetic as patient reached max dose and next dose would not be available for 2 hours. Patient was agreeable to waiting. Within the two hours patient had 400ml of emesis and a large loose stool. Patient then stated that the nausea had resolved. At this time oral meds were administered as was the ABX. Comfortably sleeping with no recurrence of nausea and/or vomiting
[2016-11-20 06:06] VITALS: BP 128/72; PULSE 68; RESP 16; O2SAT 94
--- NOTE | 2016-11-20 06:28 | PCM.PNSURG ---
Subjective Visit Information: Reason for Visit SBO Surgery/Surgery Date Post-Op Day # Date of Admission: Nov 15, 2016 at 01:17 Hospital Day # Subjective: pt was able to drink gastrograffin yesterday, then had a episode of vomiting last evening; reports having loose Bm's overnight, no nausea at this time, abd still distended Objective Objective Awake in bed, no distress Abd: moderate distention, tympanic, but nontender and soft Vital Sign- Last 8 Hours Date Time Temp Pulse Resp B/P Pulse Ox O2 Delivery O2 Flow Rate FiO2 11/20/16 06:06 36.5 68 16 128/72 94 Nasal Cannula 2.00 Intake and Output- Last 8 Hour 11/20/16 Cumulative From/Thru 07:00 11/14/16 22:43 - 11/20/16 06:10 Intake Total 770 ml 45346 ml Output Total 1250 ml 9850 ml Balance -480 ml 3563 ml Intake Oral 375 ml 4225 ml IV Total 395 ml 9188 ml Output Urine Total 500 ml 6055 ml Stool Total 400 ml 600 ml Gastric Drainage Total 2545 ml Emesis 350 ml 650 ml # Voids 6 # Bowel Movements 14 Result Diagram: 11/19/16 0530 11/19/16 0530 Assessment & Plan Impression Persistent PSBO Problems: Plan This AM's xray shows contrast into colon, but has many dilated loops of SB Will place NGT Place PICC line and start TPN Discussed exploratory surgery with pt, but she currently declines. Patient's family will talk it over with the patient re: surgery. VTE Prophylaxis: Sub-Q Heparin (Unfractionated) Resuscitation Status: CPR: Attempt Resuscitation Anderson Patino MD Nov 20, 2016 06:28
[2016-11-20] MEDS: Polyethylene Glycol (PEG) 17 Gm Powder PO SCH (08:30)
[2016-11-20] MEDS: Furosemide 10 mg/mL 2 mL Inj IVPUSH SCH (09:03)
[2016-11-20] MEDS: Heparin 5,000 Unit/mL Inj SUBQ SCH ×3 (09:03→16:26)
[2016-11-20] MEDS: Famotidine Inj 20 MG in IV Premix 1 EACH IV SCH (09:03)
[2016-11-20] MEDS ORDERED: Sodium Chloride LOK Flush 10 mL Syringe IVFLUSH PRN ×2 (09:10)
--- NOTE | 2016-11-20 09:13 | NUR ---
TAVIA signed by pt at bedside
--- NOTE | 2016-11-20 09:45 | DRSVH ---
PROCEDURE: X-RAY KUB ([id number]) INDICATIONS: f/u gastrograffin, f/u SBO TECHNIQUE: One view of the abdomen acquired. COMPARISON: [facility], CR, XR GASTROGRAF CHALLENG 1VW ABD, 11/19/2016, 20:49. [facility], CR, XR ABD W ERECT + OR DECUB 2 VW, 11/19/2016, 11:40. FINDINGS: Surgical changes and devices: None. Bowel: Bowel gas pattern is grossly unchanged since 11/19/16 with dilated small bowel loops measuring up to 6 cm. Residual oral contrast material seen within the colon, which is relatively decompressed. Gastric prominence also noted as before Soft tissues: No suspicious abdominal calcifications. Visualized solid organ contours appear normal in size. Bones: No suspicious bony lesions. Discogenic changes and scoliosis. Moderate bilateral hip joint d egeneration. IMPRESSION: Overall, minimal if any interval change in small bowel obstruction since yesterday. Residual oral con trast material seen within the colon. Consolidation in the retrocardiac lung base suggesting aspiration/pneumonia. Please correlate [facility]. Dictated by: Willie Coughlin M.D. on 11/20/2016 at 9:41 Approved by: Willie Coughlin M.D. on 11/20/2016 at 9:43
[2016-11-20] MEDS: DEXTROSE 5% IV SCH (10:55)
[2016-11-20] MEDS: PHA MIX IV SCH (10:55)
[2016-11-20] MEDS: CEFAZOLIN IV SCH (10:55)
--- NOTE | 2016-11-20 11:23 | PCM.PNMED ---
Subjective Date of Service Nov 20, 2016 Subjective Denies nausea, does have abdominal distention Exam Vital Signs Vital Sign - Last Date Time Temp Pulse Resp B/P Pulse Ox O2 Delivery O2 Flow Rate FiO2 11/20/16 06:06 36.5 68 16 128/72 94 Nasal Cannula 2.00 Intake and Output 11/19/16 11/19/16 11/20/16 Cumulative From/Thru 15:00 23:00 07:00 11/14/16 22:43 - 11/20/16 06:10 Intake Total 1200 ml 900 ml 770 ml 80909 ml Output Total 800 ml 250 ml 1250 ml 9850 ml Balance 400 ml 650 ml -480 ml 3563 ml Intake Oral 1200 ml 460 ml 375 ml 4225 ml IV Total 440 ml 395 ml 9188 ml Output Urine Total 800 ml 250 ml 500 ml 6055 ml Stool Total 400 ml 600 ml Gastric Drainage Total 2545 ml Emesis 350 ml 650 ml # Voids 2 6 # Bowel Movements 1 14 Exam General: Alert, no acute distress Heart: Regular Lungs: Clear anteriorly and laterally Abdomen: Soft, non-tender but moderate distention Extremities: No pedal edema Lab and Diagnostics Result Diagram: 11/19/16 0530 11/19/16 0530 X-Rays, CTs and MRIs PROCEDURE: X-RAY ABDOMEN WITH ERECT AND/OR DECUBITUS VIEWS ([id number]) INDICATIONS: follow up Small bowel obstruction IMPRESSION: Small bowel obstruction probably slightly worse than on 11/18/16. Dictated by: Mukesh Velazquez M.D. on 11/19/2016 at 12:07 Approved by: Mukesh Velazquez M.D. on 11/19/2016 at 12:09 IMPRESSION: 1. Persistent small bowel obstruction. 2. Air space opacity at the left lung base and small pleural effusions redemonstrated and probable atelectasis within the mid right lung. Dictated by: Brooks Barillas [facility] Interpreted: Katelyn Blanchard MD on 11/18/2016 at 10:10 Approved by: Katelyn Blanchard MD, PhD on 11/18/2016 at 13:23 CT Abd / Pelvis Interpretation 11/14 IMPRESSION: Small bowelobstruction assocaited with mesenteric whorling suggesting adhesions/internal hernia. Small volume of ascited Diverticulosis Mild cardiomegaly with pacemaker present Small pericardial effusion Non-emergent incidental findings as noted. Radiologist: Andrei Solorio MD Date of Service: 11/16/16 0645 PROCEDURE: X-RAY KUB ([id number]) INDICATIONS: evaluate bowel obstruction IMPRESSION: Persistent partial small bowel obstruction. Airspace opacity present involving the left lung base suggesting atelectasis versus pneumonia or aspiration. Small effusion may also be present. Correlate clinically. Dictated by: Brooks Barillas RRA Interpreted: Pili Jean MD on 11/16/2016 at 9:42 Approved by: Pili Jean M.D. on 11/16/2016 at 10:18 Assessment & Plan Aliya Jerome is an 85 y.o. female with Nonischemic dilated cardiomyopathy, emphysema, GERD, hyperlipidemia, arthritis, mitral valve prolapse presenting to [facility] emergency department with complaints of diarrhea and abdominal pain Acute Partial Small bowel obstruction. Present on admission -- morphine , Oxycodone for pain control -- 11/15 vomiting bilious matter, NGT inserted and placed on continuous suction -- 11/16 Improving. NG tube changed miguel intermittent suction and later that day removed due to pt discomfort and improving clinical presentation/sxs. Abdominal film done in the morning showed incomplete resolution of small bowel obstruction. -- 11/17 patient worse after advancing , made nothing by mouth.. She did have a small bowel movement in the morning. -- Abd x-ray shows continued partial bowel obs. Surgery wants conservative approach in this elderly lady with many comorbidities. -- 11/19 Repeat abd x-ray showed no improvement, Surgery is doing a gastrograffin study again. Patient states she is becoming nauseated again. -- NSS 30 cc/hr as she is allowed to drink clears + gastrograffin. will carefully increase fluids if she had too much fluid losses on 11/20 -- As per general surgery visit November 20: This AM's xray shows contrast into colon, but has many dilated loops of SB Will place (reinsert) NGT Place PICC line and start TPN Discussed exploratory surgery with pt, but she currently declines. Hypoxia: Likely due to not taking deep breaths -- On 2L today -- Continue to monitor Hyperbilirubinemia: Appears to be indirect -- LDH elevated, retic count low, haptoglobin elevated, peripheral smear is essentially normal: not a picture of hemolytic anemia -- US abd ascites, liver: "Fluid-filled, dilated bowel loops within the lower abdomen and pelvis in this patient with history of SBO. small amount of perihepatic fluid" -- She is s/p cholecystectomy Postop prophylactic abx from recent pacemaker placement: She is on IV Ancef for pacemaker placement prophylaxis -- As per previous note will DC today Acute Diarrhea. Present on admission, active Patient had antibiotics exposure during her recent pacemaker procedure. Differential diagnosis includes viral gastroenteritis -- GI panel is ordered: Negative -- 11/18 Abd film showed worsened partial SBO -- This is runny BM, likely due to partial sBO, not diarrhea Nonischemic dilated cardiomyopathy with ejection fraction 30% to 35%. s/p Biventricular pacemaker Pacemaker site showed no infection - monitor on telemetry - monitor for signs of fluid overload - will hold diuretics as patient is NPO to avoid hypovolemia -- She had 9 doses of PO keflex to complete per family: Ordered Ancef equal dose to start 11/16 am. Will discuss with ID. -- 11/16 Pleural effusion noted on the chest x-ray and she is given 10 mg of IV Lasix -- Started patient on Lasix IV 10 mg daily as she is not getting her home meds Hypertension - continue Carvedilol 25 mg bid -- hold losartan due to low BP Hyperlipidemia - Hold Atorvastatin 10 mg daily GERD -- famotidine IV - Acetaminophen as needed for mild pain/fever/headache - Bowel regimen as needed - Antiemetic as needed Patient admitted under inpatient status with expected length of stay > 2 midnights for severity of present symptoms, complexities of treatment plan and risk for adverse event. Continue Keflex/Ancef prophylaxis for pacemaker placement. She can d/c home if tolerating advanced diet. Likely d/c on . Home with 3 times a day . VTE Prophylaxis: Sub-Q Heparin (Unfractionated) VTE Mechanical Devices: Intermittant Pneumatic CD Resuscitation Status: CPR: Attempt Resuscitation Sisi Salgado MD Nov 20, 2016 11:23
--- NOTE | 2016-11-20 11:35 | NUR ---
NG Placement Attempted failed NG placement in Right nare. Pt felt pain and nose began to bleed. Stopped placement and removed tube. Bleeding stopped. Denies SOB or further pain. MD aware. NG tube 14 placed in Left nare with no issues. Tested with air heard through stethoscope over stomach. Advanced a few more cm per MD order to 63cm. NG placed Low cont suction to wall. Some clear fluid with few blood clots noted at first with air. After about 30min green stomach contents noted in canister (approx 40mls). NG placement confirmed with XRay and MD. Care continues
--- NOTE | 2016-11-20 11:37 | NUR ---
NUTRITION FOLLOW-UP: ASSESS: Pt is an 85 YO female admitted with SBO. NGT was removed 11/17. She was on a CL diet but had increased abdomen distention and was made NPO again. Per surgery, she was able to drink gastrograffin yesterday, then had a episode of vomiting last evening and again this morning after drinking her clear liquid diet. She reports having loose BM's overnight. Abd still distended. Pt has been NPO/CL x 5 days. Surgery ordered TPN this morning. PMHX: Cardiomyopathy, emphysema, GERD, HLD, MV prolapse, arthritis LABS: Reviewed. CO2 31, Ca 7.8, Alb 2.7. MEDS: Reviewed. Lasix, miralax, zofran. GI: Loose stooling overnight. WT: 62.0 kg, BMI 22.1 kg/m2. Admit weight: 60.9kg, BMI 21.7kg/m2 DIET: NPO/CL EST. NEEDS: Kcals: 1530-1830kcal/day (25-30kcal/kg) Pro: 60-75g/day (1.0-1.2g/kg) Fluids: ~1530-1830ml/day (25-30ml/kg) NUTRITION DIAGNOSIS: 1) Inadequate oral intake related to altered GI function as evidenced by current NPO/CL status - PERSISTS. NUTRITION INTERVENTION: 1) Recommend advance diet when medically appropriate 2) TPN recommendation discussed with pharmacy: 135g Dex, 40g AA and 25g lipids to provide 869kcal and 40g pro (~50% estimated needs). Goal TPN macronutrients of 270g Dex, 75g AA and 50g lipids to provide 1718kcal and 75g pro (100% estimated needs) MONITOR / EVAL: NPO clear liquid status, TPN tolerance, Wt, GI, labs, POC, nutrition status. Will continue to monitor per high nutrition risk guidelines.
--- NOTE | 2016-11-20 12:01 | DRSVH ---
PROCEDURE: X-RAY CHEST ONE VIEW, PORTABLE ([id number]) INDICATIONS: check NGT placement TECHNIQUE: One view of the chest was acquired. COMPARISON: None. FINDINGS: Surgical changes and devices: Enteric tube is seen with the tip in the stomach. Cardiac pacer also no jadyn. Lungs and pleura: No pleural effusions or pneumothorax. Retrocardiac consolidation. Diffuse intersti tial disease and scarring elsewhere in the lung bases. Mediastinum: Mediastinal contours appear normal. Heart size is normal. Bones and chest wall: No suspicious bony lesions. Overlying soft tissues appear unremarkable. Bila teral shoulder joint degeneration and lateral curvature of the spine. IMPRESSION: Retrocardiac consolidation suggesting aspiration versus pneumonia. Please correlate clini jigar. Enteric tube with the tip projecting in the stomach Dictated by: Willie Coughlin M.D. on 11/20/2016 at 11:58 Approved by: Willie Coughlin M.D. on 11/20/2016 at 11:59
--- NOTE | 2016-11-20 12:03 | PCM.PHAPRO ---
Progress PARENTERAL NUTRITION ORDERS Total Volume 20-Nov-16 Standard Hang Time: 2100 Substrates Total kcal: 869 AMINO ACIDS 40 g DEXTROSE 135 g Total Volume (mL): 1800 LIPIDS 25 g Sterile Water for Injection QS mL To Infuse Over (hrs): 24 Total Volume 1800 mL At at a rate of (mL/hr): 75 Additives Sodium Chloride 150 mEq "typical" daily requirements Sodium Acetate 0 mEq Sodium 50-120mEq Potassium Chloride 20 mEq Potassium 60-120mEq Potassium Phosphate 40 mEq Phosphate 20-40mEq Calcium Gluconate 8 mEq Magnesium 8-32mEq Magnesium Sulfate 16 mEq Calcium 9-22mEq Acetate* 80-120mEq Chloride* 80-120mEq Regular Insulin units *Depending on acid-base status Famotidine 20 mg Multivitamins 1 std dose Insulin Regimen Trace Elements 1 std dose none Thiamine 100 mg Regular Low Intensity Subcut Folic Acid 1 mg Regular Medium Intensity Subcut Ascorbic Acid 0 mg Regular High Intensity Subcut Regular Insulin Infusion Other: Special Instructions: To be infused via central line only. For delay or inturruption of TPN contact the pharmacist for alternative replacement solution. Signature Date: KASSI WILLIS 0 [facility] Cm Cordova Pharm.D Nov 20, 2016 12:03
--- NOTE | 2016-11-20 13:30 | NUR ---
PICC Pt leaves to get PICC placed. NG tube clammed from cont suction. IV SL. 1-2L NC in use. A&OX4. Addendum: 11/20/16 at 1831 by VITALIY CABRERA RN Pt returned from PICC insertion with no issues. DL PICC placed in Right side. No complaints at this time from pt.
[2016-11-20 15:09] VITALS: BP 110/67; PULSE 59; RESP 16; O2SAT 94
--- NOTE | 2016-11-20 15:35 | DRSVH ---
PROCEDURE: X-RAY PICC LINE PLACEMENT BY NURSE ([id number]) INDICATIONS: for starting Total parental nutrition COMPARISON: None. FINDINGS: PICC was placed by the intravenous therapy team from the right side. Fluoroscopic spot fi lm demonstrates tip of PICC projecting in the lower SVC. IMPRESSION: Tip of PICC lies projecting within the lower SVC. Dictated by: Willie Coughlin M.D. on 11/20/2016 at 15:25 Approved by: Willie Coughlin M.D. on 11/20/2016 at 15:33
--- NOTE | 2016-11-20 18:32 | NUR ---
NG NG low cont suction. green output noted. Nausea has subsided since NG was placed. Pt states that she feels much better now. 1-2L Supplemental oxygen continues as needed to keep PSO2 92% or >. Care continues
[2016-11-20] MEDS: 0.9% Sodium Chloride 1,000 ML IV SCH (21:20)
[2016-11-20 21:27] VITALS: BP 130/70; PULSE 78; RESP 18; O2SAT 94
[2016-11-20] MEDS: TPN Per Pharmacist XX SCH (21:39)
[2016-11-20] MEDS: Total Parenteral Nutrition 1 BAG IV SCH (21:39)
[2016-11-21] MEDS: Heparin 5,000 Unit/mL Inj SUBQ SCH ×3 (01:10→17:25)
[2016-11-21 04:17] VITALS: BP 157/72; PULSE 77; RESP 18; O2SAT 95
[2016-11-21 04:48] LABS: Mean Corpuscular Hemoglobin 30.7 pg (27.0-35.0); Mean Corpuscular Volume 98.6 fL (81-100); Platelet Count 136 bil/L (150-400)
[2016-11-21 05:03] LABS: BASOPHILS % (AUTO) 0.6 % (0-3); EOSINOPHILS % (AUTO) 0.9 % (0-5); MONOCYTES % (AUTO) 7.6 % (4-12); NEUTROPHILS % (AUTO) 75.6 % (40-74)
--- NOTE | 2016-11-21 05:57 | NUR ---
Activity NG tube continues to low continuous suction and putting out dark green drainage, 450 cc since NG tube placed on day shift. Pt has been on 2L O2 overnight to keep O2 sats above 92%. TPN started and running through PICC at 75 ml/hr. Pt up SBA to Bathroom and had one liquid stool. Denies pain.
[2016-11-21] MEDS: Polyethylene Glycol (PEG) 17 Gm Powder PO SCH (08:30)
[2016-11-21] MEDS: Furosemide 10 mg/mL 2 mL Inj IVPUSH SCH (10:04)
[2016-11-21] MEDS: Famotidine Inj 20 MG in IV Premix 1 EACH IV SCH (10:04)
[2016-11-21] MEDS ORDERED: SODIUM CHLORIDE 0.9% IV ONE (10:50)
[2016-11-21] MEDS ORDERED: POTASSIUM PHOS IV ONE (10:50)
--- NOTE | 2016-11-21 10:57 | DRSVH ---
PROCEDURE: X-RAY ABDOMEN WITH ERECT AND/OR DECUBITUS VIEWS ([id number]) INDICATIONS: SMALL BOWEL OBSTRUCTION TECHNIQUE: 2 views of the abdomen were acquired. COMPARISON: [facility], CR, XR KUB, 11/20/2016, 8:23. [facility], CR, XR ABD W ERECT + OR DECUB 2 VW, 11/19/2016, 11:40. FINDINGS: Surgical changes and devices: None. Bowel: Abnormal bowel gas pattern is present. Asymmetric dilatation of small bowel throughout the a bdomen and pelvis with contrast medium noted within the colon. The gaseous distention of the small b owel loops has slightly decreased no the largest distended loop measuring roughly 4.9 cm compared to roughly 6.3 cm on previous KUB. No pneumatosis or bowel wall thickening. No pneumoperitoneum. Soft tissues: No masses; visualized solid organ contours appear normal in size. No suspicious abdom inal calcifications. Small effusions and left medial basilar airspace opacity redemonstrated. Bones: No suspicious bony abnormalities. IMPRESSION: 1. Persistent partial small bowel obstructive pattern. 2. Small pleural effusions and consolidation begins involving the medial left lung base. Dictated by: Brooks ESCOBEDO Interpreted: Leslee Swain MD on 11/21/2016 at 8:39 Approved by: Leslee Swain M.D. on 11/21/2016 at 10:56
--- NOTE | 2016-11-21 10:57 | PCM.PHAPRO ---
Progress TPN Management by Pharmacy: -Day 2 of TPN for pt with sbo, npo/clear liquids x 5 days -macronutrients to remain the same in discussion with seafood farmer -phos level of 2 will be replenished with 20meq of KPhos today -pt's weight has increased ~ 4kg, will decrease volume to 1400ml and adjust Nacl to 110meq -will discontinue the famotidine ivpb as pt is receiving this in the TPN -it was decided in rounds today that the NS at 30ml/hr will be discontinued PARENTERAL NUTRITION ORDERS TPN # 2 21-Nov-16 Standard Hang Time: 2100 Substrates Total kcal: 869 AMINO ACIDS 40 g DEXTROSE 135 g Total Volume (mL): 1400 LIPIDS 25 g Sterile Water for Injection QS mL To Infuse Over (hrs): 24 Total Volume 1400 mL At at a rate of (mL/hr): 58 Additives Sodium Chloride 110 mEq "typical" daily requirements Sodium Acetate 0 mEq Sodium 50-120mEq Potassium Chloride 30 mEq Potassium 60-120mEq Potassium Phosphate 40 mEq Phosphate 20-40mEq Calcium Gluconate 9 mEq Magnesium 8-32mEq Magnesium Sulfate 16 mEq Calcium 9-22mEq Acetate* 80-120mEq Chloride* 80-120mEq Regular Insulin units *Depending on acid-base status Famotidine 20 mg Multivitamins 1 std dose Insulin Regimen Trace Elements 1 std dose none Thiamine 100 mg Regular Low Intensity Subcut Folic Acid 1 mg Regular Medium Intensity Subcut Ascorbic Acid 0 mg Regular High Intensity Subcut Regular Insulin Infusion Other: -Plan: formula for this evening: Mallory Baker [facility] Nov 21, 2016 10:57
--- NOTE | 2016-11-21 11:04 | NUR ---
NUTRITION FOLLOW-UP/TPN: ASSESS: Pt is an 85 YO female admitted with SBO, started on TPN 11/20; NG tube for suction, pt continues with nausea, surgery option discussed, pt declines, now with liquid stool reported per RN notes 11/21. Pt has been NPO/CL x 6 days. PMHX: Cardiomyopathy, emphysema, GERD, HLD, MV prolapse, arthritis LABS: Reviewed. Glu 113, Ca 7.7,Phos 2.0,Alb 2.7,Na 143,K+3.7 MEDS: Reviewed. Lasix, miralax, zofran. GI: Loose stool today per RN notes WT: 63.9 kg, BMI 22.7 kg/m2. Admit weight: 60.9kg, BMI 21.7kg/m2 DIET: NPO/CL EST. NEEDS: Kcals: 1530-1830kcal/day (25-30kcal/kg) Pro: 60-75g/day (1.0-1.2g/kg) Fluids: ~1530-1830ml/day (25-30ml/kg) NUTRITION DIAGNOSIS: 1) Inadequate oral intake related to altered GI function as evidenced by current NPO/CL status - PERSISTS. NUTRITION INTERVENTION: 1) Recommend advance diet when medically appropriate 2) TPN recommendation discussed with pharmacy: Continue 135g Dex, 40g AA and 25g lipids to provide 869kcal and 40g pro (~50% estimated needs). Consider advancement 11/22 to 200g dextrose,75g AA,50g lipids providing 1480kcal, 75g protein (96%kcal,100% pro needs). Goal TPN macronutrients of 270g Dex, 75g AA and 50g lipids to provide 1718kcal and 75g pro (100% estimated needs) MONITOR / EVAL: NPO clear liquid status, TPN tolerance/advancement, Wt, GI, labs, POC, nutrition status. Will continue to monitor per high nutrition risk guidelines.
--- NOTE | 2016-11-21 11:42 | PCM.PNMED ---
Subjective Date of Service Nov 21, 2016 Subjective Perhaps feels slightly less distended Exam Vital Signs Vital Sign - Last Date Time Temp Pulse Resp B/P Pulse Ox O2 Delivery O2 Flow Rate FiO2 11/21/16 04:17 37.0 77 18 157/72 95 Nasal Cannula 2.00 Intake and Output 11/20/16 11/20/16 11/21/16 Cumulative From/Thru 15:00 23:00 07:00 11/14/16 22:43 - 11/21/16 05:53 Intake Total 1570 ml 1062 ml 85458 ml Output Total 1450 ml 950 ml 44477 ml Balance 120 ml 112 ml 3795 ml Intake Oral 970 ml 0 ml 5195 ml IV Total 600 ml 561 ml 80969 ml TPN/PPN 501 ml 501 ml Output Urine Total 600 ml 500 ml 7155 ml Stool Total 600 ml Urine/Stool Mix 850 ml 850 ml Gastric Drainage Total 450 ml 2995 ml Emesis 650 ml # Voids 1 7 # Bowel Movements 14 Exam General: Alert and oriented, no acute distress Heart: Regular Lungs: Clear although some decreased in bases Abdomen: Soft, non-tender, bowel tones present, still moderate distension Extremities: No pedal edema IVs and Medications Medications Reviewed: Medications were reviewed in detail Lab and Diagnostics Result Diagram: 11/21/165 11/21/16 0435 X-Rays, CTs and MRIs PROCEDURE: X-RAY ABDOMEN WITH ERECT AND/OR DECUBITUS VIEWS ([id number]) INDICATIONS: follow up Small bowel obstruction IMPRESSION: Small bowel obstruction probably slightly worse than on 11/18/16. Dictated by: Mukesh Velazquez M.D. on 11/19/2016 at 12:07 Approved by: Mukesh Velazquez M.D. on 11/19/2016 at 12:09 IMPRESSION: 1. Persistent small bowel obstruction. 2. Air space opacity at the left lung base and small pleural effusions redemonstrated and probable atelectasis within the mid right lung. Dictated by: Brooks Barillas [facility] Interpreted: Katelyn Blanchard MD on 11/18/2016 at 10:10 Approved by: Katelyn Blanchard MD, PhD on 11/18/2016 at 13:23 CT Abd / Pelvis Interpretation 11/14 IMPRESSION: Small bowelobstruction assocaited with mesenteric whorling suggesting adhesions/internal hernia. Small volume of ascited Diverticulosis Mild cardiomegaly with pacemaker present Small pericardial effusion Non-emergent incidental findings as noted. Radiologist: Andrei Solorio MD Date of Service: 11/16/16 0645 PROCEDURE: X-RAY KUB ([id number]) INDICATIONS: evaluate bowel obstruction IMPRESSION: Persistent partial small bowel obstruction. Airspace opacity present involving the left lung base suggesting atelectasis versus pneumonia or aspiration. Small effusion may also be present. Correlate clinically. Dictated by: Brooks Barillas RRA Interpreted: Pili Jean MD on 11/16/2016 at 9:42 Approved by: Pili Jean M.D. on 11/16/2016 at 10:18 Assessment & Plan Aliya Jerome is an 85 y.o. female with Nonischemic dilated cardiomyopathy, emphysema, GERD, hyperlipidemia, arthritis, mitral valve prolapse presenting to [facility] emergency department with complaints of diarrhea and abdominal pain Acute Partial Small bowel obstruction. Present on admission -- morphine , Oxycodone for pain control -- 11/15 vomiting bilious matter, NGT inserted and placed on continuous suction -- 11/16 Improving. NG tube changed miguel intermittent suction and later that day removed due to pt discomfort and improving clinical presentation/sxs. Abdominal film done in the morning showed incomplete resolution of small bowel obstruction. -- 11/17 patient worse after advancing , made nothing by mouth.. She did have a small bowel movement in the morning. -- Abd x-ray shows continued partial bowel obs. Surgery wants conservative approach in this elderly lady with many comorbidities. -- 11/19 Repeat abd x-ray showed no improvement, Surgery is doing a gastrograffin study again. Patient states she is becoming nauseated again. -- NSS 30 cc/hr as she is allowed to drink clears + gastrograffin. will carefully increase fluids if she had too much fluid losses on 11/20 -- As per general surgery visit November 20: This AM's xray shows contrast into colon, but has many dilated loops of SB Will place (reinsert) NGT Place PICC line and start TPN Discussed exploratory surgery with pt, but she currently declines. -11/21 continue as per surgery, no note yet but patients states plan is to continue NG suction and TPN Hypoxia: Likely due to not taking deep breaths -- On 2L today -- Continue to monitor -- Lungs seen on abd xray today: "Small effusions and left medial basilar airspace opacity redemonstrated" -- has incentive spirometer at bedside, with encouragement able to do larger volumes while I was watching, advised her to continue q 1 hr during day Hyperbilirubinemia: Appears to be indirect. resolved as per 11/19 lab -- LDH elevated, retic count low, haptoglobin elevated, peripheral smear is essentially normal: not a picture of hemolytic anemia -- US abd ascites, liver: "Fluid-filled, dilated bowel loops within the lower abdomen and pelvis in this patient with history of SBO. small amount of perihepatic fluid" -- She is s/p cholecystectomy Postop prophylactic abx from recent pacemaker placement: She is on IV Ancef for pacemaker placement prophylaxis -- As per previous note will DC today Acute Diarrhea. Present on admission, active Patient had antibiotics exposure during her recent pacemaker procedure. Differential diagnosis includes viral gastroenteritis -- GI panel is ordered: Negative -- 11/18 Abd film showed worsened partial SBO -- This is runny BM, likely due to partial sBO, not diarrhea Nonischemic dilated cardiomyopathy with ejection fraction 30% to 35%. s/p Biventricular pacemaker Pacemaker site showed no infection - monitor on telemetry - monitor for signs of fluid overload - will hold diuretics as patient is NPO to avoid hypovolemia -- She had 9 doses of PO keflex to complete per family: Ordered Ancef equal dose to start 11/16 am. Will discuss with ID. -- 11/16 Pleural effusion noted on the chest x-ray and she is given 10 mg of IV Lasix -- Started patient on Lasix IV 10 mg daily as she is not getting her home meds Hypertension - continue Carvedilol 25 mg bid -- hold losartan due to low BP Hyperlipidemia - Hold Atorvastatin 10 mg daily GERD -- famotidine IV - Acetaminophen as needed for mild pain/fever/headache - Bowel regimen as needed - Antiemetic as needed Patient admitted under inpatient status with expected length of stay > 2 midnights for severity of present symptoms, complexities of treatment plan and risk for adverse event. Continue Keflex/Ancef prophylaxis for pacemaker placement. She can d/c home if tolerating advanced diet. Likely d/c on . Home with 3 times a day . VTE Prophylaxis: Sub-Q Heparin (Unfractionated) VTE Mechanical Devices: Intermittant Pneumatic CD Resuscitation Status: CPR: Attempt Resuscitation Sisi Salgado MD Nov 21, 2016 11:42
[2016-11-21 15:41] VITALS: BP 149/83; PULSE 82; RESP 17; O2SAT 93
--- NOTE | 2016-11-21 17:53 | PCM.PNSURG ---
Subjective Date of Service: Nov 21, 2016 Visit Information: Reason for Visit SBO Date of Admission: Nov 15, 2016 at 01:17 Hospital Day # 7 Subjective: Passing some flatus. No Abdominal pain Objective Vital Sign- Last 8 Hours Date Time Temp Pulse Resp B/P Pulse Ox O2 Delivery O2 Flow Rate FiO2 11/21/16 15:41 36.8 82 17 149/83 93 Nasal Cannula 2.00 Intake and Output- Last 8 Hour 11/21/16 Cumulative From/Thru 07:00 11/14/16 22:43 - 11/21/16 05:53 Intake Total 1062 ml 72205 ml Output Total 950 ml 12732 ml Balance 112 ml 3795 ml Intake Oral 0 ml 5195 ml IV Total 561 ml 34218 ml TPN/PPN 501 ml 501 ml Output Urine Total 500 ml 7155 ml Stool Total 600 ml Urine/Stool Mix 850 ml Gastric Drainage Total 450 ml 2995 ml Emesis 650 ml # Voids 7 # Bowel Movements 14 Abdomen: Other (Full but soft, Nontender) Result Diagram: 11/21/16 0435 11/21/16 0435 Diagnostics: AXR with contrast in the colon, Small bowel still distended but somewhat improved compared to before Assessment & Plan Impression Doing okay Problems: Plan Continue NG to suction, TPN Ambulate Repeat AXR tomorrow morning Will continue to follow Ottoniel Loya MD Nov 21, 2016 17:53
[2016-11-21] MEDS: Ondansetron 2 mg/mL 2 mL Inj IVPUSH PRN (18:26)
--- NOTE | 2016-11-21 18:38 | NUR ---
Nausea Patient states she has had a small amount of intermittent nausea this shift, resolved with ordered anti-nausea medication. Patient ambulating in aguilar without difficulty. Care is ongoing.
[2016-11-21 19:57] VITALS: BP 152/88; PULSE 85; RESP 18; O2SAT 94
[2016-11-21] MEDS: Total Parenteral Nutrition 1 BAG IV SCH (22:05)
[2016-11-21] MEDS: TPN Per Pharmacist XX SCH (22:05)
[2016-11-22] MEDS: Heparin 5,000 Unit/mL Inj SUBQ SCH ×3 (01:22→18:38)
--- NOTE | 2016-11-22 04:11 | NUR ---
Activity Pt denied nausea this shift. NG tube continues to continuous suction with dark green/brown drainage. Assisted pt with full sponge bath and washing hair. TPN running at 54CC/HR. Pt is passing gas this morning.
[2016-11-22 05:30] VITALS: BP 161/85; PULSE 81; RESP 18; O2SAT 93
[2016-11-22 05:48] LABS: Magnesium 2.2 mg/dL (1.6-2.6); Phosphorus 2.8 mg/dL (2.5-4.9)
[2016-11-22] MEDS ORDERED: KCl 40 mEq/100 mL (CENTRAL) 40 MEQ in IV Premix 1 EACH IV ONE (07:35)
--- NOTE | 2016-11-22 07:38 | PROG NOTE ---
[address] [address] PROGRESS NOTE PATIENT: KASSI WILLIS : 1930 MR#: [id number] ADMIT: 11/15/2016 JOB ID: [id number] DATE: 11/22/2016 SUBJECTIVE: The patient is seen in followup. Today, she feels significantly better than yesterday. She has no nausea. She is passing some flatus, but has not had a bowel movement. She has no abdominal pain. OBJECTIVE: Temperature 36.8, pulse 81, blood pressure 161/85, saturation 93% on 2 L. General: She is resting in bed in no acute distress. Chest is clear. Heart: Regular rate and rhythm. No murmurs. Abdomen is mildly distended but soft. Bowel tones are present. She has no tenderness. LABORATORIES: White blood cell count yesterday is 10.8, hematocrit 35.0. Today, creatinine 0.33, glucose 110, potassium 3.3. IMAGING: Abdominal x-ray yesterday shows persistent dilated loops of small bowel. I would note that there is contrast in the colon from recent Gastrografin administration. ASSESSMENT/PLAN: An 85-year-old woman with partial small bowel obstruction. Gastrografin in the colon after Gastrografin challenge suggests that she will not require surgery for her bowel obstruction. Bowel obstruction is clearly partial. Another x-ray has been ordered for today. We will follow up on that. Recommend continuing TPN. I did have a fairly long discussion with her about surgery and she is not totally opposed to surgery and agrees that if she is not improving, has worsening nausea, recurrent vomiting, increased abdominal distention, then I think we should proceed to the operating room, but that would not happen today.
[2016-11-22] MEDS: Polyethylene Glycol (PEG) 17 Gm Powder PO SCH (08:30)
[2016-11-22] MEDS: Furosemide 10 mg/mL 2 mL Inj IVPUSH SCH (08:35)
--- NOTE | 2016-11-22 11:38 | PCM.PNMED ---
Subjective Date of Service Nov 22, 2016 Subjective Aliya Jerome is an 85 y.o. female with Nonischemic dilated cardiomyopathy, emphysema, GERD, hyperlipidemia, arthritis, mitral valve prolapse presented to [facility] emergency department with complaints of diarrhea and abdominal pain. Patient was diagnosed with partial small bowel obstruction. Surgical service was consulted to help in diagnosis and management. Patient has NG tube now under intermittent suction. Nutrition - TPN. Gastrografin study showed partial obstruction. No need for surgery us for now. Patient is complaining of mild abdominal pain, nausea. She feels a bit better today than yesterday. Exam Vital Signs Vital Sign - Last Date Time Temp Pulse Resp B/P Pulse Ox O2 Delivery O2 Flow Rate FiO2 11/22/16 05:30 36.8 81 18 161/85 93 Nasal Cannula 2.00 Intake and Output 11/21/16 11/21/16 11/22/16 Cumulative From/Thru 15:00 23:00 07:00 11/14/16 22:43 - 11/22/16 05:29 Intake Total 1873 ml 864 ml 32657 ml Output Total 1700 ml 1000 ml 53500 ml Balance 173 ml -136 ml 3832 ml Intake Oral 200 ml 5395 ml IV Total 570 ml 98 ml 70332 ml TPN/PPN 1103 ml 766 ml 2370 ml Output Urine Total 1200 ml 600 ml 8955 ml Stool Total 600 ml Urine/Stool Mix 850 ml Gastric Drainage Total 500 ml 400 ml 3895 ml Emesis 650 ml # Voids 7 # Bowel Movements 1 0 15 Exam GENERAL: Alert, moderate distress, cooperative, NG tube present HEAD: atraumatic, normocephalic, no bruises. EYES: GRICELDA, EOMI, anicteric, able to fully open and close eyelids SKIN: Skin color normal, turgor normal. No visible rashes or lesions. EAR, NOSE, MOUTH, THROAT: Lips, oral mucosa, tongue gums, oropharynx are moist , pink, no lesions. Ears normal appearance, no lesions. NECK: supple; ROM normal. RESPIRATORY: Lungs clear to auscultation. Good diaphragmatic excursion. CARDIAC: normal S1 and S2; no rubs, murmurs, or gallops; regular rate and rhythm ABDOMEN: Abdomen soft, mildly tender. BS decreased. No masses or organomegaly. MUSCULOSKELETAL: ROM full, muscles are not tender EXTREMITIES: nopitting edema in LE, no deformities, clubbing or skin discoloration. NEURO: Alert, oriented X 3, Sensation grossly intact., Cranial nerves II-XII intact, Grossly normal motor function. PULSES: 2+ radial, 2+ carotid REVIEW OF SYSTEMS: GENERAL: +malaise, no fevers., SEE HPI HEENT: Negative for frequent or significant headaches NECK: Negative for lumps, goiter, pain and significant neck swelling All other reviewed and negative other than HPI. IVs and Medications Medications Reviewed: Medications were reviewed in detail Lab and Diagnostics Result Diagram: 11/21/16 0435 11/22/16 0510 X-Rays, CTs and MRIs PROCEDURE: X-RAY ABDOMEN WITH ERECT AND/OR DECUBITUS VIEWS ([id number]) INDICATIONS: follow up Small bowel obstruction IMPRESSION: Small bowel obstruction probably slightly worse than on 11/18/16. Dictated by: Mukesh Velazquez M.D. on 11/19/2016 at 12:07 Approved by: Mukesh Velazquez M.D. on 11/19/2016 at 12:09 IMPRESSION: 1. Persistent small bowel obstruction. 2. Air space opacity at the left lung base and small pleural effusions redemonstrated and probable atelectasis within the mid right lung. Dictated by: Brooks Barillas [facility] Interpreted: Katelyn Blanchard MD on 11/18/2016 at 10:10 Approved by: Katelyn Blanchard MD, PhD on 11/18/2016 at 13:23 CT Abd / Pelvis Interpretation 11/14 IMPRESSION: Small bowelobstruction assocaited with mesenteric whorling suggesting adhesions/internal hernia. Small volume of ascited Diverticulosis Mild cardiomegaly with pacemaker present Small pericardial effusion Non-emergent incidental findings as noted. Radiologist: Andrei Solorio MD Date of Service: 11/16/16 0645 PROCEDURE: X-RAY KUB ([id number]) INDICATIONS: evaluate bowel obstruction IMPRESSION: Persistent partial small bowel obstruction. Airspace opacity present involving the left lung base suggesting atelectasis versus pneumonia or aspiration. Small effusion may also be present. Correlate clinically. Dictated by: Brooks Barillas RRA Interpreted: Pili Jean MD on 11/16/2016 at 9:42 Approved by: Pili Jean M.D. on 11/16/2016 at 10:18 Assessment & Plan Aliya Jerome is an 85 y.o. female with Nonischemic dilated cardiomyopathy, emphysema, GERD, hyperlipidemia, arthritis, mitral valve prolapse presenting to [facility] emergency department with complaints of diarrhea and abdominal pain Acute Partial SBO. Loose stool - Not under control - Surgery is following Plan - Continue with NG tube and suction - Continue TPN - Symptomatic treatment Mild Hypoxia, On 2L of O2 via NC - stable - CXR - Retrocardiac consolidation suggesting aspiration versus pneumonia - will check Procalcitonin Hyperbilirubinemia, LDH elevated, retic count low, haptoglobin elevated, peripheral smear is essentially normal - stable - US abd ascites, liver: "Fluid-filled, dilated bowel loops within the lower abdomen and pelvis in this patient with history of SBO. small amount of perihepatic fluid" -- She is s/p cholecystectomy - monitor Chronic systolic CHF with EF 30% to 35%. s/p Biventricular pacemaker. Hyperlipidemia - stable Plan - c/w current meds Hypertension - stable - c/w current meds GERD -- famotidine IV DVT prophylaxis- subcutaneous heparin Labs, radiology tests, ECG reviewed. Code status: Patient declined intubation, chest compressions, defibrillations and other electrical shocks, chemical code. Patient would like to be DNR/DNI Plan of care, diagnostic procedures and available alternatives were discussed and reviewed with patient/family. All questions answered. Patient/family verbalized understanding, approved and agreed to plan of care. Given patient's current condition, I certify, in my opinion inpatient services greater than two midnights are medically necessary for this patient. Please see H&P and MD progress notes for additional information about patient's course of treatment. Pain Evaluation: Adequate Pain Control VTE Prophylaxis: Sub-Q Heparin (Unfractionated) VTE Mechanical Devices: Intermittant Pneumatic CD Resuscitation Status: DNR/DNI:Do Not Resuscitate/Intubate Elian Lugo MD Nov 22, 2016 11:38 - Acetaminophen as needed for mild pain/fever/headache - Bowel regimen as needed - Antiemetic as needed Patient admitted under inpatient status with expected length of stay > 2 midnights for severity of present symptoms, complexities of treatment plan and risk for adverse event. Continue Keflex/Ancef prophylaxis for pacemaker placement. She can d/c home if tolerating advanced diet. Likely d/c on . Home with 3 times a day . Pain Evaluation: Adequate Pain Control VTE Mechanical Devices: Intermittant Pneumatic CD Elian Lugo MD Nov 22, 2016 11:38
[2016-11-22 12:00] VITALS: BP 145/82; PULSE 76; RESP 17; O2SAT 92
[2016-11-22] MEDS: Ondansetron 2 mg/mL 2 mL Inj IVPUSH PRN ×2 (12:39→18:40)
--- NOTE | 2016-11-22 14:14 | NUR ---
Social Work: Continued D/C Planning D: EMR reviewed. Pt is a 85 y/o female admitted for SBO per H&P on day 7 of hospitalization. Pt is not medically stable, anticipate multiple more days of admission. Pt's bowel obstruction is partially cleared. Pt to receive repeat xray and may be a candidate for surgery. Surgery continues to follow. Pt continues with TPN and NG tube. GIANNI met with pt and daughter in law Germán [phone] to check in. During conversation pt was ambulating in the hallway. Pt and daughter in law are awaiting pt's clinical course before determining plan of care at home. GIANNI has acknowledged HH order from . When asked about this in rounds, continues to follow for HH need but requested that LAB SUPPORT SERVICE TECH not act on this order at this time. SW will act on this order only when MD requests it. SW will continue to check in during morning rounds. At this time, pt's acjjaaky-[id number] Germán Fink will provide transport home via POV when pt is medically stable. GIANNI does not anticipate any discharge needs at this time but will continue to follow if needs arise, R/O HH RN. A: Pt who is independent at baseline. P: SW will continue to follow for HH need, but MD states that LAB SUPPORT SERVICE TECH should not act on this order at this time. At this time, pt's qanlotye-lj-lti Germán Fink will provide transport home via POV when pt is medically stable. GIANNI does not anticipate any discharge needs at this time but will continue to follow if needs arise, R/O HH RN. CLARY Manrique
--- NOTE | 2016-11-22 14:31 | DRSVH ---
PROCEDURE: X-RAY ABDOMEN WITH ERECT AND/OR DECUBITUS VIEWS ([id number]) INDICATIONS: SMALL BOWEL OBSTRUCTION TECHNIQUE: 2 views of the abdomen were acquired. COMPARISON: [facility], CR, XR ABD W ERECT + OR DECUB 2 VW, 11/21/2016, 8:15. FINDINGS: Surgical changes and devices: Nasogastric tube present tip traversing the GE junction. Cholecystecto my clips.. Bowel: Abnormal bowel gas pattern is present. Asymmetric dilatation of small bowel throughout the a bdomen and pelvis with contrast medium noted within the colon. The gaseous distention of the small b owel loops is similar the largest distended loop measuring roughly 5.8 cm. No pneumatosis or bowel w all thickening. No pneumoperitoneum. Soft tissues: No masses; visualized solid organ contours appear normal in size. No suspicious abdom inal calcifications. Small effusions and left medial basilar airspace opacity redemonstrated. Bones: No suspicious bony abnormalities. IMPRESSION: 1. Persistent small bowel obstructive pattern. 2. Small left pleural effusions and persistent consolidation involving the medial left lung base. Dictated by: Brooks Barillas RRA Interpreted: Katelyn Blanchard MD on 11/22/2016 at 8:53 Approved by: Katelyn Blanchard MD, PhD on 11/22/2016 at 14:28
--- NOTE | 2016-11-22 16:02 | NUR ---
NUTRITION FOLLOW-UP: ASSESS: 85 YO female admitted with SBO, started on TPN 11/20; Pt continues to have partial small bowel obstruction treated with NG tube hooked to suction. Surgery following. TPN continues and will be increased today. Pharmacy notified. PMHX: Cardiomyopathy, emphysema, GERD, HLD, MV prolapse, arthritis LABS: Reviewed. K+ 3.3, Glu 110, BUN 7, Cr .33, Phos 2.8, Mg 2.2, alb 2.7 MEDS: Reviewed. GI: BM x 1 (11/21) WT: 63.7 kg, Admit weight: 60.9 kg, BMI 21.7 DIET: NPO/CL x 7 days. NUTRITION SUPPORT: TPN~135 g Dextrose, 40 g Amino Acids and 25 g lipids to provide 869 kcal and 40 g protein EST. NEEDS: Kcals: 3563-9181 kcal/day (25-30 kcal/kg BW) Pro: 75-90 g/day (1.2-1.5 g/kg BW) Fluids: ~4272-5064 ml/day (25-30 ml/kg BW) NUTRITION DIAGNOSIS: 1) Inadequate oral intake related to altered GI function as evidenced by current NPO/CL status - PERSISTS. NUTRITION INTERVENTION: 1) Recommend advancing diet when medically appropriate 2) TPN recommendation discussed with pharmacy: Recommend advancing TPN to 180 g dextrose, 75 g Amino Acids,50 g lipids to provide 1262 kcals and 75 g protein per day. Goal TPN macronutrients of 270 g dextrose, 85 g Amino Acids, 50 g lipids to provide 1758 kcal and 85 g protein MONITOR / EVAL: TPN tolerance/advancement, diet advancement / tolerance, weights, labs, GI/nutrition status. Will continue to monitor per high nutrition risk guidelines. Addendum: 11/23/16 at [address] TPN recs to pharmacy on 11/22 were 180 g dextrose, 75 g Amino Acids, 35 g lipids to provide 1262 kcals and 75 g protein per day.
[2016-11-22 19:31] VITALS: BP 157/76; PULSE 80; RESP 18; O2SAT 92
--- NOTE | 2016-11-22 19:42 | NUR ---
Nausea / Ambulation Pt continues to c/o slight nausea. checked NG. NG remains at 63cm, output noted. Blue exhaust tube sucking air. Encouraged pt to ambulated as tolerated. Zofran given which seems to help. Pt states that this nausea seems to be stemming from actual stomach upper left rather than lower ABD. Ambulated SBA using IV pole for steadiness but has a steady gait. 2L NC to keep SPO2 90>%. NG continuous suction low with green bile output. Care continues
[2016-11-22] MEDS: Total Parenteral Nutrition 1 BAG IV SCH (21:00)
[2016-11-22] MEDS: TPN Per Pharmacist XX SCH (21:00)
[2016-11-23] MEDS: Heparin 5,000 Unit/mL Inj SUBQ SCH ×3 (00:18→18:06)
[2016-11-23 04:25] VITALS: BP 152/86; PULSE 85; RESP 20; O2SAT 91
--- NOTE | 2016-11-23 07:36 | NUR ---
Nausea Patient had very little nausea this shift. Early on she stated she had a little bit, but the nausea subsided quickly and the patient had no complaints the rest of shift. Patient slept well through much of the shift. 2L nasal canula. TPN at 67 ml/hr. NG tube patent and suctioning continuous. Vitals stable. Patient states she has no pain.
[2016-11-23 08:02] LABS: Magnesium 2.2 mg/dL (1.6-2.6); Phosphorus 3.2 mg/dL (2.5-4.9)
[2016-11-23] MEDS: Polyethylene Glycol (PEG) 17 Gm Powder PO SCH (08:30)
[2016-11-23 08:40] VITALS: BP 166/75; PULSE 80; RESP 18; O2SAT 96
--- NOTE | 2016-11-23 09:10 | PROG NOTE ---
[address] [address] PROGRESS NOTE PATIENT: KASSI WILLIS : 1930 MR#: [id number] ADMIT: 11/15/2016 JOB ID: [id number] DATE: 11/23/2016 SUBJECTIVE: The patient is seen in followup. She feels about the same today as yesterday. She is not complaining of abdominal pain. She does not currently have any nausea. She is passing small amounts of flatus, but has not had significant bowel function. OBJECTIVE: Temperature 36.4, pulse 85, blood pressure 152/86, saturation 91% on 2 liters. General: She is sitting up in bed, in no acute distress. HEENT: Nasogastric tube is in place with scant drainage, output overnight was 500 cc. Chest: Clear to auscultation. Heart: Regular rate and rhythm, left upper chest wall pacemaker, no murmurs. Abdomen is distended but very soft. She has no tenderness to palpation. Labs have been ordered but are pending. Last albumin was 2.7 on November 19. ASSESSMENT AND PLAN: An 85-year-old woman with partial small bowel obstruction. Despite initial improvement, she now does not seem to be getting better with conservative treatment. I think that surgical intervention needs to be planned. We talked in great length about her options and the logistics. She understands that I personally am not available to operate until perhaps early next week. If she decompensates significantly, she will need to have surgery by the on-call surgeon. She strongly prefers to wait until I am available to do her operation. I am going to work on the logistics of that and see if we can find any time. In the meantime, I am checking repeat labs today to see what her albumin is. If it remains significantly low, I think surgery should be delayed in order for her to get more TPN and improve her albumin. The surgical plan would be a laparoscopy, possible laparotomy, possible bowel resection. She understands that the postoperative course after that type of operation would likely be fairly prolonged as well, with most patients remaining in the hospital for at least another week while awaiting return of bowel function, and that many patients need to go to a intermediate facility after that. All of her questions were answered, along with her daughter. We will look at plans for finding time to get to the operating room.
[2016-11-23] MEDS: Furosemide 10 mg/mL 2 mL Inj IVPUSH SCH (09:28)
[2016-11-23] MEDS: Ondansetron 2 mg/mL 2 mL Inj IVPUSH PRN ×4 (09:28→22:19)
[2016-11-23 09:30] LABS: BASOPHILS % (AUTO) 0.5 % (0-3); EOSINOPHILS % (AUTO) 1.4 % (0-5); MONOCYTES % (AUTO) 9.2 % (4-12); Mean Corpuscular Hemoglobin 30.5 pg (27.0-35.0); Mean Corpuscular Volume 99.2 fL (81-100); NEUTROPHILS % (AUTO) 71.4 % (40-74); Platelet Count 153 bil/L (150-400)
--- NOTE | 2016-11-23 10:32 | PCM.PHAPRO ---
Progress TPN Per Pharmacy - Nutrition has increased recommendations - Decreased NaCl PARENTERAL NUTRITION ORDERS TPN # 4 23-Nov-16 Standard Hang Time: 2100 Substrates Total kcal: 1605 AMINO ACIDS 85 g DEXTROSE 225 g Total Volume (mL): 1600 LIPIDS 50 g Sterile Water for Injection QS mL To Infuse Over (hrs): 24 Total Volume 1600 mL At at a rate of (mL/hr): 67 Additives Sodium Chloride 90 mEq "typical" daily requirements Sodium Acetate 0 mEq Sodium 50-120mEq Potassium Chloride 70 mEq Potassium 60-120mEq Potassium Phosphate 30 mEq Phosphate 20-40mEq Calcium Gluconate 9 mEq Magnesium 8-32mEq Magnesium Sulfate 12 mEq Calcium 9-22mEq Acetate* 80-120mEq Chloride* 80-120mEq Regular Insulin units *Depending on acid-base status Famotidine 20 mg Multivitamins 1 std dose Insulin Regimen Trace Elements 1 std dose none Thiamine 100 mg Regular Low Intensity Subcut Folic Acid 1 mg Regular Medium Intensity Subcut Ascorbic Acid 0 mg Regular High Intensity Subcut Regular Insulin Infusion Other: Special Instructions: To be infused via central line only. For delay or inturruption of TPN contact the pharmacist for alternative replacement solution. Signature Date: KASSI WILLIS 0 [facility] Pharmacy will continue to follow Ella Giraldo PharmD Nov 23, 2016 10:32
--- NOTE | 2016-11-23 12:06 | PCM.PNMED ---
Subjective Date of Service Nov 23, 2016 Subjective Aliya Jerome is an 85 y.o. female with Nonischemic dilated cardiomyopathy, emphysema, GERD, hyperlipidemia, arthritis, mitral valve prolapse presented to [facility] emergency department with complaints of diarrhea and abdominal pain. Patient was diagnosed with partial small bowel obstruction. Surgical service was consulted to help in diagnosis and management. Patient has NG tube now under intermittent suction. Nutrition - TPN. Gastrografin study showed partial obstruction. Patient is complaining of mild abdominal pain, nausea. She has NG tube. Surgery reevaluated the patient, they will take her to OR soon. Exam Vital Signs Vital Sign - Last Date Time Temp Pulse Resp B/P Pulse Ox O2 Delivery O2 Flow Rate FiO2 11/23/16 08:40 36.8 80 18 166/75 96 Nasal Cannula 2.00 Intake and Output 11/22/16 11/22/16 11/23/16 Cumulative From/Thru 14:59 22:59 06:59 11/14/16 22:43 - 11/23/16 06:44 Intake Total 200 ml 997 ml 76383 ml Output Total 1350 ml 1400 ml 32836 ml Balance -1150 ml -403 ml 2279 ml Intake Oral 200 ml 200 ml 5795 ml IV Total 797 ml 36867 ml TPN/PPN 2370 ml Output Urine Total 800 ml 900 ml 51802 ml Stool Total 600 ml Urine/Stool Mix 850 ml Gastric Drainage Total 550 ml 500 ml 4945 ml Emesis 650 ml # Voids 7 # Bowel Movements 1 0 16 Exam GENERAL: Alert, not in distress HEAD: atraumatic, normocephalic EYES: GRICELDA, EOMI, anicteric SKIN: Skin color normal, turgor normal/decreased. No visible rashes EAR, NOSE, MOUTH, THROAT: Lips, oral mucosa, tongue gums, oropharynx are pink, no lesions NECK: no jugulovenous distention, supple; ROM normal. RESPIRATORY: Lungs clear to auscultation. Good diaphragmatic excursion CARDIAC: normal S1 and S2; no rubs, murmurs, or gallops; regular rhythm ABDOMEN: Abdomen soft, tender. BS normal. No masses or organomegaly. MUSCULOSKELETAL: ROM full, muscles are not tender EXTREMITIES: no pitting edema in LE, no deformities, clubbing or skin discoloration. NEURO: Alert, oriented X 2, Cranial nerves II-XII intact, Grossly normal motor function. PULSES: 2+ radial, 2+ carotid REVIEW OF SYSTEMS: GENERAL: + malaise, no fevers., SEE HPI HEENT: Negative for frequent or significant headaches NECK: Negative for lumps, goiter, pain and significant neck swelling All other reviewed and negative other than HPI. IVs and Medications Medications Reviewed: Medications were reviewed in detail Lab and Diagnostics Result Diagram: 11/23/1692711/23/16927 X-Rays, CTs and MRIs PROCEDURE: X-RAY ABDOMEN WITH ERECT AND/OR DECUBITUS VIEWS ([id number]) INDICATIONS: follow up Small bowel obstruction IMPRESSION: Small bowel obstruction probably slightly worse than on 11/18/16. Dictated by: Mukesh Velazquez M.D. on 11/19/2016 at 12:07 Approved by: Mukesh Velazquez M.D. on 11/19/2016 at 12:09 IMPRESSION: 1. Persistent small bowel obstruction. 2. Air space opacity at the left lung base and small pleural effusions redemonstrated and probable atelectasis within the mid right lung. Dictated by: Brooks Barillas [facility] Interpreted: Katelyn Blanchard MD on 11/18/2016 at 10:10 Approved by: Katelyn Blanchard MD, PhD on 11/18/2016 at 13:23 CT Abd / Pelvis Interpretation 11/14 IMPRESSION: Small bowelobstruction assocaited with mesenteric whorling suggesting adhesions/internal hernia. Small volume of ascited Diverticulosis Mild cardiomegaly with pacemaker present Small pericardial effusion Non-emergent incidental findings as noted. Radiologist: Andrei Solorio MD Date of Service: 11/16/16 0645 PROCEDURE: X-RAY KUB ([id number]) INDICATIONS: evaluate bowel obstruction IMPRESSION: Persistent partial small bowel obstruction. Airspace opacity present involving the left lung base suggesting atelectasis versus pneumonia or aspiration. Small effusion may also be present. Correlate clinically. Dictated by: Brooks Barillas [facility] Interpreted: Pili Jean MD on 11/16/2016 at 9:42 Approved by: Pili Jean M.D. on 11/16/2016 at 10:18 Assessment & Plan Aliya Jerome is an 85 y.o. female with Nonischemic dilated cardiomyopathy, emphysema, GERD, hyperlipidemia, arthritis, mitral valve prolapse presenting to [facility] emergency department with complaints of diarrhea and abdominal pain Acute Partial SBO. Loose stool - Not under control - Surgery is following, decided to take the patient to OR Plan - Continue with NG tube and suction - Continue TPN - Symptomatic treatment - surgery to take the patient to OR Mild Hypoxia, On 2L of O2 via NC. Probably mild pneumonia - stable - Procalcitonin 0.24 in the settings of Retrocardiac consolidation suggesting aspiration versus pneumonia Plan - I will start the patient on Doxycycline bid IV Hyperbilirubinemia, LDH elevated, retic count low, haptoglobin elevated, peripheral smear is essentially normal - stable - US abd ascites, liver: "Fluid-filled, dilated bowel loops within the lower abdomen and pelvis in this patient with history of SBO. small amount of perihepatic fluid" -- She is s/p cholecystectomy - monitor Chronic systolic CHF with EF 30% to 35%. s/p Biventricular pacemaker. Hyperlipidemia - stable Plan - c/w current meds Hypertension - stable - c/w current meds GERD -- famotidine IV DVT prophylaxis- subcutaneous heparin Labs, radiology tests, ECG reviewed. Code status: Patient declined intubation, chest compressions, defibrillations and other electrical shocks, chemical code. Patient would like to be DNR/DNI Plan of care, diagnostic procedures and available alternatives were discussed and reviewed with patient/family. All questions answered. Patient/family verbalized understanding, approved and agreed to plan of care. Given patient's current condition, I certify, in my opinion inpatient services greater than two midnights are medically necessary for this patient. Please see H&P and progress notes for additional information about patient's course of treatment. VTE Prophylaxis: Sub-Q Heparin (Unfractionated) VTE Mechanical Devices: Intermittant Pneumatic CD Resuscitation Status: DNR/DNI:Do Not Resuscitate/Intubate Elian Lugo MD Nov 23, 2016 12:06
--- NOTE | 2016-11-23 13:43 | NUR ---
NUTRITION FOLLOW-UP: ASSESS: 85 YO female admitted with SBO, started on TPN 11/20; Pt continues to have partial small bowel obstruction treated with NG tube hooked to suction. Surgery following. TPN increase appears to be well tolerated at this time and will be increased again starting this evening, Pharmacy notified. PMHX: Cardiomyopathy, emphysema, GERD, HLD, MV prolapse, arthritis LABS: Reviewed. Na 144, Glu 122, Ca 8.2, Phos 3.2, Mg 2.2. MEDS: Reviewed. GI: BM x 1 (11/22) WT: 61.6 kg, Admit weight: 60.9 kg, BMI 21.7 DIET: NPO/CL x 8 days. NUTRITION SUPPORT: TPN~180 g dextrose, 75 g Amino Acids, 35 g lipids to provide 1262 kcals and 75 g protein per day. EST. NEEDS: Kcals: 8968-2265 kcal/day (25-30 kcal/kg BW) Pro: 75-90 g/day (1.2-1.5 g/kg BW) Fluids: ~2997-6655 ml/day (25-30 ml/kg BW) NUTRITION DIAGNOSIS: 1) Inadequate oral intake related to altered GI function as evidenced by current NPO/CL status - PERSISTS. NUTRITION INTERVENTION: 1) Recommend advancing diet when medically appropriate 2) Recommend advancing TPN to 225 g dextrose, 85 g Amino Acids, 50 g lipids to provide 1605 kcals and 85 g protein per day. Goal TPN macronutrients of 270 g dextrose, 85 g Amino Acids, 50 g lipids to provide 1758 kcal and 85 g protein MONITOR / EVAL: TPN tolerance/advancement, diet advancement / tolerance, weights, labs, GI/nutrition status. Will continue to monitor per high nutrition risk guidelines.
[2016-11-23] MEDS: Doxycycline Inj 100 MG in Dextrose 5% Minibag Plus 100 ML IV SCH ×2 (13:50→20:11)
[2016-11-23 14:04] VITALS: BP 151/78; PULSE 88; RESP 18; O2SAT 94
[2016-11-23 19:15] VITALS: BP 157/87; PULSE 85; RESP 17; O2SAT 92
--- NOTE | 2016-11-23 19:54 | NUR ---
Mepilex Pt sacral area becoming reddened today. pt has been in bed more often than normal. Placed Mepilex on sacrum as well as change into panties which are softer. Pt states that this is already much more comfortable. Care continues.
[2016-11-23] MEDS: Total Parenteral Nutrition 1 BAG IV SCH (21:00)
[2016-11-23] MEDS: TPN Per Pharmacist XX SCH (21:00)
[2016-11-24] MEDS: Heparin 5,000 Unit/mL Inj SUBQ SCH ×3 (00:39→16:18)
[2016-11-24 06:32] VITALS: BP 161/91; PULSE 87; RESP 19; O2SAT 93
--- NOTE | 2016-11-24 07:24 | NUR ---
NG/Activity Pt with NG tube, patent. Brown color output, NG to continuous suction. Pt reports intermit. nausea relieved by zofran. Pt is NPO with ice chips, tolerating. Pt denies pain. TPN infusing through PICC line. Pt is minimal assist up to BSC or BR. Call light in reach, care continues.
--- NOTE | 2016-11-24 08:10 | PROG NOTE ---
[address] [address] PROGRESS NOTE PATIENT: KASSI WILLIS : 1930 MR#: [id number] ADMIT: 11/15/2016 JOB ID: [id number] DATE: 11/24/2016 SUBJECTIVE: The patient is seen in followup. There has been no significant change since yesterday. She still has some mild nausea despite the nasogastric tube, which is relieved by Zofran. She has not had any significant bowel function. OBJECTIVE: Temperature 36.8, pulse 87, blood pressure 161/91, saturation 93% on 2 liters. General: She is resting in bed in no acute distress. Chest is clear. Heart: Regular rate and rhythm. Left upper chest wall pacemaker. Abdomen is mildly distended but soft. Bowel tones are hypoactive. LABORATORIES: White count 9.2, hematocrit 35.4, platelets 153, albumin 2.9. ASSESSMENT/PLAN: An 85-year-old woman with persistent partial small bowel obstruction. The plan is to go to the operating room tomorrow. We will start with laparoscopy to look if there is a single band adhesion causing a closed loop obstruction, but if there are numerous adhesions, the plan will be to make an open laparotomy, perform lysis of adhesions. She understands the possibility of requiring bowel resection. The typical postoperative recovery was discussed. Informed consent was obtained. She should be strictly n.p.o. after midnight with no ice chips, and her midnight dose of subcu heparin should be held.
[2016-11-24] MEDS: Polyethylene Glycol (PEG) 17 Gm Powder PO SCH (08:30)
[2016-11-24] MEDS: Doxycycline Inj 100 MG in Dextrose 5% Minibag Plus 100 ML IV SCH (09:29)
[2016-11-24] MEDS: Furosemide 10 mg/mL 2 mL Inj IVPUSH SCH (09:29)
[2016-11-24 10:26] VITALS: BP 137/78; PULSE 85; RESP 18; O2SAT 94
--- NOTE | 2016-11-24 11:03 | PCM.PHAPRO ---
Progress TPN PER PHARMACY - Pt increased to 100% of goal macros PARENTERAL NUTRITION ORDERS TPN # 5 24-Nov-16 Standard Hang Time: 2100 Substrates Total kcal: 1758 AMINO ACIDS 85 g DEXTROSE 270 g Total Volume (mL): 1600 LIPIDS 50 g Sterile Water for Injection QS mL To Infuse Over (hrs): 24 Total Volume 1600 mL At at a rate of (mL/hr): 67 Additives Sodium Chloride 70 mEq "typical" daily requirements Sodium Acetate 0 mEq Sodium 50-120mEq Potassium Chloride 70 mEq Potassium 60-120mEq Potassium Phosphate 30 mEq Phosphate 20-40mEq Calcium Gluconate 9 mEq Magnesium 8-32mEq Magnesium Sulfate 12 mEq Calcium 9-22mEq Acetate* 80-120mEq Chloride* 80-120mEq Regular Insulin units *Depending on acid-base status Famotidine 20 mg Multivitamins 1 std dose Insulin Regimen Trace Elements 1 std dose none Thiamine 100 mg Regular Low Intensity Subcut Folic Acid 1 mg Regular Medium Intensity Subcut Ascorbic Acid 0 mg Regular High Intensity Subcut Regular Insulin Infusion Other: Special Instructions: To be infused via central line only. For delay or inturruption of TPN contact the pharmacist for alternative replacement solution. Signature Date: KASSI WILLIS 0 [facility] Pharmacy will continue to follow, thank you Ella Giraldo PharmD Nov 24, 2016 11:03
--- NOTE | 2016-11-24 11:22 | PCM.PNMED ---
Subjective Date of Service Nov 24, 2016 Subjective pt slept well still no NG suction denied n/v, has some mild discomfort on abdomen usually has more nausea after she wakes up tentative plan for surgery tomorrow per Exam Vital Signs Vital Sign - Last Date Time Temp Pulse Resp B/P Pulse Ox O2 Delivery O2 Flow Rate FiO2 11/24/16 06:32 36.8 87 19 161/91 93 Nasal Cannula 2.00 Intake and Output 11/23/16 11/23/16 11/24/16 Cumulative From/Thru 15:00 23:00 07:00 11/14/16 22:43 - 11/24/16 06:31 Intake Total 2814 ml 425 ml 15590 ml Output Total 2100 ml 400 ml 04645 ml Balance 714 ml 25 ml 3018 ml Intake Oral 300 ml 6095 ml IV Total 235 ml 425 ml 97498 ml TPN/PPN 2279 ml 4649 ml Output Urine Total 1500 ml 400 ml 36046 ml Stool Total 600 ml Urine/Stool Mix 850 ml Gastric Drainage Total 600 ml 5545 ml Emesis 650 ml # Voids 7 # Bowel Movements 16 Exam NAD, comfortably laying down on the bed no JVD, MMM, no LAD RRR, nl s1, s2 no mrg CTAB, no w,c S,ND,NT,normoactive BS+ warm, no edema, pulses 2/2 IVs and Medications Medications Reviewed: Medications were reviewed in detail Lab and Diagnostics Result Diagram: 11/23/16 0928 11/24/16 0550 X-Rays, CTs and MRIs PROCEDURE: X-RAY ABDOMEN WITH ERECT AND/OR DECUBITUS VIEWS ([id number]) INDICATIONS: follow up Small bowel obstruction IMPRESSION: Small bowel obstruction probably slightly worse than on 11/18/16. Dictated by: Mukesh Velazquez M.D. on 11/19/2016 at 12:07 Approved by: Mukesh Velazquez M.D. on 11/19/2016 at 12:09 IMPRESSION: 1. Persistent small bowel obstruction. 2. Air space opacity at the left lung base and small pleural effusions redemonstrated and probable atelectasis within the mid right lung. Dictated by: Brooks Barillas [facility] Interpreted: Katelyn Blanchard MD on 11/18/2016 at 10:10 Approved by: Katelyn Blanchard MD, PhD on 11/18/2016 at 13:23 CT Abd / Pelvis Interpretation 11/14 IMPRESSION: Small bowelobstruction assocaited with mesenteric whorling suggesting adhesions/internal hernia. Small volume of ascited Diverticulosis Mild cardiomegaly with pacemaker present Small pericardial effusion Non-emergent incidental findings as noted. Radiologist: Andrei Solorio MD Date of Service: 11/16/16 0645 PROCEDURE: X-RAY KUB ([id number]) INDICATIONS: evaluate bowel obstruction IMPRESSION: Persistent partial small bowel obstruction. Airspace opacity present involving the left lung base suggesting atelectasis versus pneumonia or aspiration. Small effusion may also be present. Correlate clinically. Dictated by: Brooks SANCHEZA Interpreted: Pili Jean MD on 11/16/2016 at 9:42 Approved by: Pili Jean M.D. on 11/16/2016 at 10:18 Assessment & Plan Aliya Jerome is an 85 y.o. female with Nonischemic dilated cardiomyopathy, emphysema, GERD, hyperlipidemia, arthritis, mitral valve prolapse presenting to [facility] emergency department with complaints of diarrhea and abdominal pain acute, active Acute Partial SBO. OIA Loose stool, -pt still symptomatic, abdomen seemed benign on exam, mildly improved, -tentative plan for surgery tomorrow by , appreciate management -Continue with NG tube and suction, TPN Mild chronic hypoxia, POA, SpO2 remained 90-94% on 2liters NC, O2 requirement seemed unchanged. pt received Doxycyclin 11/23-. this likely represent chronic hypoxic with emphysema -given no respiratory sx, no fever, leukocytosis, mild PCT, will stop abx today and monitor -continue O2 supplement as needed -monitor respiratory function closely post-op course, aggressive suction, incentive spirometer, chest PT chronic,stable, resolved Hyperbilirubinemia, LDH elevated, retic count low, haptoglobin elevated, peripheral smear is essentially normal - stable - US abd ascites, liver: "Fluid-filled, dilated bowel loops within the lower abdomen and pelvis in this patient with history of SBO. small amount of perihepatic fluid" -- She is s/p cholecystectomy - monitor Chronic systolic CHF with EF 30% to 35%. s/p Biventricular pacemaker. Hyperlipidemia - stable - c/w current meds Hypertension - stable - c/w current meds GERD -- famotidine IV DVT prophylaxis- subcutaneous heparin Code status: Patient declined intubation, chest compressions, defibrillations and other electrical shocks, chemical code. Patient would like to be DNR/DNI dispo: likely 2-3more days based on surgical course. VTE Prophylaxis: Sub-Q Heparin (Unfractionated) VTE Mechanical Devices: Intermittant Pneumatic CD Resuscitation Status: DNR/DNI:Do Not Resuscitate/Intubate Time spent 35min Sandeep Otoole MD Nov 24, 2016 07:32
[2016-11-24] MEDS: Ondansetron 2 mg/mL 2 mL Inj IVPUSH PRN ×3 (12:59→21:41)
--- NOTE | 2016-11-24 13:23 | NUR ---
NUTRITION FOLLOW-UP: ASSESS: 85 YO female admitted with SBO, started on TPN 11/20; Pt continues to have small bowel obstruction treated with NG tube hooked to suction. Plan is for pt to have laparotomy possible convert to open lysis of adhesions 11/25. TPN appears to be well tolerated at this time and TPN will be increased to goal this evening, Pharmacy notified. PMHX: Cardiomyopathy, emphysema, GERD, HLD, MV prolapse, arthritis LABS: Reviewed. Na 145, Glu 107, Alb 2.9. MEDS: Reviewed. GI: BM x 1 (11/22), 1100 ML reported 11/13 from NG suction. WT: 61.6 kg, Admit weight: 60.9 kg, BMI 21.7 DIET: NPO/CL x 9 days. NUTRITION SUPPORT: TPN~225 g dextrose, 85 g Amino Acids, 50 g lipids to provide 1605 kcals and 85 g protein per day EST. NEEDS: Kcals: 7290-7144 kcal/day (25-30 kcal/kg BW) Pro: 75-90 g/day (1.2-1.5 g/kg BW) Fluids: ~6327-4358 ml/day (25-30 ml/kg BW) NUTRITION DIAGNOSIS: 1) Inadequate oral intake related to altered GI function as evidenced by current NPO/CL status - PERSISTS. NUTRITION INTERVENTION: 1) Recommend advancing diet when medically appropriate 2) Recommend advancing TPN to goal TPN of 270 g dextrose, 85 g Amino Acids, 50 g lipids to provide 1758 kcal and 85 g protein MONITOR / EVAL: TPN tolerance/advancement, diet advancement / tolerance, weights, labs, GI/nutrition status. Continue to monitor per high nutrition risk guidelines.
[2016-11-24 13:41] VITALS: BP 139/72; PULSE 89; RESP 18; O2SAT 91
--- NOTE | 2016-11-24 16:29 | NUR ---
Ambulation Pt continues to SBA. Needs help unhooking tubes but otherwise ambulates halls with family holds iv pole for guidance. Care continues
[2016-11-24 20:30] VITALS: BP 157/94; PULSE 106; RESP 20; O2SAT 92
[2016-11-24] MEDS ORDERED: 0.9% Sodium Chloride 250 ML ONE (21:19)
[2016-11-24] MEDS: TPN Per Pharmacist XX SCH (21:37)
[2016-11-24] MEDS: Total Parenteral Nutrition 1 BAG IV SCH (21:37)
[2016-11-25] VITALS (10 sets, daily range): BP systolic 103–154; BP diastolic 53–80; PULSE 63–89; RESP 14–18; O2SAT 89–98
[2016-11-25] MEDS: Heparin 5,000 Unit/mL Inj SUBQ SCH ×4 (00:32→23:51)
[2016-11-25] MEDS: Ondansetron 2 mg/mL 2 mL Inj IVPUSH PRN ×3 (02:27→19:56)
[2016-11-25] MEDS ORDERED: Lactated Ringer's 1,000 ML IV SCH ×2 (05:00→09:13)
[2016-11-25] MEDS ORDERED: CeFAZolin 2 Gm/50 mL D5W Duplex Bag IV ONE (06:00)
[2016-11-25 06:16] LABS: BASOPHILS % (AUTO) 0.4 % (0-3); EOSINOPHILS % (AUTO) 1.1 % (0-5); MONOCYTES % (AUTO) 7.2 % (4-12); Mean Corpuscular Hemoglobin 30.8 pg (27.0-35.0); NEUTROPHILS % (AUTO) 75.7 % (40-74); Platelet Count 140 bil/L (150-400)
[2016-11-25 06:26] LABS: Magnesium 2.2 mg/dL (1.6-2.6); Phosphorus 3.6 mg/dL (2.5-4.9)
[2016-11-25] MEDS ORDERED: Bupivacaine-MPF 0.5% 30 mL Inj INFILTRATE ONE (07:50)
--- NOTE | 2016-11-25 07:50 | NUR ---
Shift note uneventful night no nausea not needing any pain med till end of shift Addendum: 11/25/16 at 3293 by RICHY HORNE RN Error wrong patient
--- NOTE | 2016-11-25 07:53 | NUR ---
Shift note Continued to medicate for nausea through the night good output from NGT, no pain issues
[2016-11-25] MEDS ORDERED: Lactated Ringer's 1,000 ML IV ONE (08:40)
--- NOTE | 2016-11-25 08:55 | NUR ---
NUTRITION FOLLOW-UP: ASSESS: 85 YO female admitted with SBO, started on TPN 11/20; Pt continues to have small bowel obstruction treated with NG tube hooked to suction. Plan is for pt to have laparotomy possible convert to open lysis of adhesions 11/25. TPN was increased to goal macronutrients 11/24. PMHX: Cardiomyopathy, emphysema, GERD, HLD, MV prolapse, arthritis LABS: Reviewed. [employer] .34, Glu 110, Ca 8.2, Alb 2.7 MEDS: Reviewed. Lasix, zofran GI: BM x 1 (11/22), 1200ml output via NGT 11/24 WT: 59.5kg, BMI 21.2kg/m2, Admit weight: 60.9 kg, BMI 21.7 DIET: NPO/CL x 10 days. NUTRITION SUPPORT: TPN: 270 g dextrose, 85 g Amino Acids, 50 g lipids to provide 1758 kcals and 85 g protein per day (100% estimated needs) EST. NEEDS: Kcals: 9635-6903 kcal/day (25-30 kcal/kg BW) Pro: 75-90 g/day (1.2-1.5 g/kg BW) Fluids: ~4143-9556 ml/day (25-30 ml/kg BW) NUTRITION DIAGNOSIS: 1) Inadequate oral intake related to altered GI function as evidenced by current NPO/CL status - PERSISTS. NUTRITION INTERVENTION: 1) Recommend advancing diet when medically appropriate 2) Recommend continue current TPN at goal macronutrients. 3) Recommend continue to monitor labs while on TPN, especially AST, ALT and Alk phos. MONITOR / EVAL: TPN tolerance, diet advancement / tolerance, weights, labs, GI/nutrition status. Continue to monitor per high nutrition risk guidelines.
[2016-11-25] MEDS ORDERED: Lactated Ringer's 500 ML IV PRN (09:13)
--- NOTE | 2016-11-25 09:13 | PCM.HPANE ---
Patient Data Date of Service: Nov 25, 2016 (0715) Surgeon Admitting Provider:Robert Carvalho MD Attending Provider:Robert Carvalho MD Primary Care Physician:Emy Gant MD Other Provider:Kaelyn Thomas Anesthesia Reason for Visit SBO SBO Ht/WT & BMI Height (Feet): 5 Height (Inches): 6.00 Weight (Kilograms): 59.500 Body Mass Index 21.58 Allergies Coded Allergies: Contrast Media (Verified Allergy, Severe, "red, itchy", 11/08/16) Pt had urticarial rash after PE study in ER on 09/05 and was given benadryl. kld 10/21/16 adhesive tape (Verified Allergy, Severe, RASH, 11/08/16) lisinopril (Verified Adverse Reaction, Severe, cough, 11/08/16) Past Anesthesia History Anesthesia History: Denies:: Anesthesia Reactions, Malignant Hyperthermia Diabetes History Hx Diabetes?: No MRSA MRSA: No Medications Blood Thinner: Aspirin Home Meds Incl Beta Laura: No Active Scripts Cephalexin 500 Mg [id number] Mg PO BID #14 CAPSULE Ref 0 Prov:Mukesh Gonzalez PA-C 11/09/16 Furosemide 20 Mg Tab20 Mg PO DAILY 20 Days Ref 0 Prov:Nata Redman DO 09/07/16 Lactobacillus Acidophilus (Acidophilus Probiotic)1 Mg Tablet1 Mg PO DAILY #30 TABLET Prov:Chidi Charles MD 06/02/16 Reported Medications Fluticasone Propionate (Fluticasone Propionate Nasal)16 Gm [place].susp1 [place] NASAL DAILY PRN allergies #16 09/05/16 Ubidecarenone (Coq-10)100 Mg [id number] Mg PO DAILY 09/05/16 Atorvastatin Calcium 10 Mg Lmrbum52 Mg PO HS #90 05/29/16 Aspirin 81 Mg Qpiuoc44 Mg PO DAILYWD Ref 0 05/29/16 Multivit-Min/FA/Lutein/Zeaxant (Macular Vitamin Tablet)1 Each Tablet2 Each PO BID 03/28/16 Ascorbic Acid (Vitamin C)1,000 Mg Tab.chew1,000 Mg PO DAILY Ref 0 03/23/16 [place] Oil/[place]-3 Fatty Acids ([place] Oil 1,000 mg Softgel)1 Each Capsule1 Each PO DAILY 03/23/16 Vit C/[place] AC/Lut/Copper/Znox (Preservision Lutein Softgel)1 Each Capsule1 Each PO BID 03/23/16 Omeprazole 20 Mg Capsule.dr20 Mg PO DAILY PRN For Indigestion Ref 0 03/23/16 Losartan Potassium 50 Mg Ipdsbs95 Mg PO BID 03/23/16 Simethicone (Gas Relief)180 Mg Rjmnjwm189 Mg PO BID PRN GAS 03/23/16 Carvedilol 25 Mg Waslxs21 Mg PO BID Ref 0 03/23/16 Ca Carb/D3/Argnin/Inos/Silicon (Bone Density Calcium + D Cplt)1 Each Tablet1 Each PO BID 03/23/16 History History of ENT Problems?: No HEENT History: Positive for:: Cataracts (S/P BILAT EXTRACTIONS) Sinus Problem (CHRONIC SINUSITIS S/P SINUS SURGERY) Denies:: Dysphagia Denture Type: None Teeth Condition: Within Normal Limits Hx of Heart Problems?: Yes Cardiovascular History: Positive for:: Edema (both ankles) Hypertension (on medication) Valvular Heart Disease (MILD MITRAL PROLAPSE) Denies:: Cardiac Surgery Chest Pain Congestive Heart Failure Heart Murmur Irregular Heartbeat (HX of SSS) Pacemaker Thrombophlebitis Hx of Respiratory Problem?: Yes Respiratory History: Positive for:: Cough Dyspnea Use of C-PAP Machine (+DEANNA- CPAP) Denies:: Asthma COPD Chest Surgery Emphysema Hemoptysis Pneumonia (2002 2015 - hospitalized in May 2016) Tuberculosis Hx Neurologic Problems?: No Neurological History: Positive for:: Headaches (sinus headaches) Denies:: Alzheimer's Disease CVA Dementia Dizziness Parkinson's Disease Seizures Hx of GI Problems?: Yes Hx of Problems?: Yes Genitourinary History: Positive for:: Urinary Tract Infection Denies:: HX of Hemodialysis Kidney Stones HX of Peritoneal Dialysis: No Female Hx: Denies:: Currently Endometriosis Pelvic Inflammatory Problems with Breasts? Skin History: Denies:: History Skin Disorders? 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 Blood Transfusions Denies:: Blood Transfuse Reaction Hx Diabetes: No Hx Alcohol Use: YesHx Substance Use: No Smoking Status: Former Smoker Have You Smoked inLast 12 mo: No Stop/Bang Treated for Sleep Apnea?: No Do You Have a CPAP Machine?: No S-Snoring: Do You Snore Loudly: Yes T-Tired: feel tired, fatigued: No O-Obsered: Observed not breath: No P-Blood Pressure: treated: Yes B- Body Mass Index > 35 kg/m2: No A- Age over 50: Yes N- Neck Large Circumference: No G- Gender Male: No DEANNA Total Score: 2 Risk Assessment Category Category 1A: Patient has history of documented sleep apnea, and HAS NOT received any narcotic, sedative or anesthesia administration during this stay. Category 1B: Patient has history of documented sleep apnea, and HAS received any narcotic , sedative or anesthesia administration during this stay Category 2: Patient has SUSPECTED Obstructive Sleep Apnea, and HAS received any narcotic , sedative or anesthesia administration during this stay. Category 3: Patient has SUSPECTED Obstructive Sleep Apnea and HAS NOT received narcotic, sedative or anesthesia administration during this stay. Category 4: Outpatient in Procedural Areas with known sleep apnea or who screen positive for High Risk via the STOP/BANG questionnaire. Exam Exam Vital Signs Vital Signs Date Time Temp Pulse Resp B/P Pulse Ox O2 Delivery O2 Flow Rate FiO2 11/25/16 06:00 36.9 84 16 151/80 92 Nasal Cannula 2.00 General Appearance: Alert, Oriented X3, Cooperative, No Acute Distress HEENT/AIRWAY: MP 3 Lungs: Clear to Auscultation Heart: Regular Rate/Rhythm Meds/Labs/Diagnostics Admission Meds Current Medications Lactated Ringer's 1,000 ml @ 120 mls/hr Q8H20M IV Last administered on 07:50; Start 11/25/16 at 05:00; Stop 11/25/16 at 13:19 Sodium Chloride (Normal Saline) 250 ml @ ud STK-MED ONCE .ROUTE Last administered on 11/24/16 21:42; Start 11/24/16 at 21:19; Stop 11/24/16 at 21:24 ; Status DC Bupivacaine HCl 30 ml 30 ml STK-MED ONCE INFILTRATE Last administered on 07:50; Start 11/25/16 at 07:50; Stop 11/25/16 at 08:00; Status DC Lactated Ringer's (Lr) 1,000 ml @ ud STK-MED ONCE IV Last administered on 11/25 08:40; Start 11/25/16 at 08:40; Stop 11/25/16 at 09:04; Status DC Cefazolin Sodium (Ancef Inj) 2 gm STK-MED ONCE IVPUSH Last administered on 11/25 08:52; Start 11/25/16 at 08:52; Stop 11/25/16 at 09:10; Status DC Labs Test 11/14/16 22:48 11/15/16 00:02 11/15/16 14:55 11/16/16 05:29 Prothrombin Time 11.3sec (8.1-12.5) Prothromb Time International Ratio 1.05ratio Lipase 31U/L (13-60) Urine Color Yellow (YELLOW) Urine Appearance Clear (CLEAR,HAZY) Urine pH 5.5 (5.0-8.0) Urine Specific [place] 1.020 (1.003-1.035) Urine Protein 30mg/dL (NEG,TRACE) Urine Glucose (UA) Negativemg/dL (NEGATIVE) Urine Ketones Tracemg/dL (NEGATIVE) Urine Occult Blood Negative (NEGATIVE) Urine Nitrite Negative (NEGATIVE) Urine Bilirubin Negative (NEGATIVE) Urine Urobilinogen 1.0mg/dL (NORMAL) Urine Leukocyte Esterase Negative (NEGATIVE) Urine RBC 0-2/hpf (0-2) Urine WBC 0-5/hpf (0-5) Urine Epithelial Cells Occasional/hpf (NONE-MOD) Urine Crystals Oxalic acid crystals (NONE Urine Bacteria Few/hpf (NONE-FEW) Urine Hyaline Casts >20/lpf (NONE) Urine Granular Casts Rare (NONE SEEN) Urine Waxy Casts None seen (NONE SEEN) Urine Red Blood Cell Casts None seen (NONE SEEN) Urine White Blood Cell Casts None seen (NONE SEEN) Urine Mucus Present (None Seen) Urine Trichomonas None seen (NONE SEEN) Urine Yeast None (NONE SEEN) Urinalysis Comment None Urine Culture Reflexed Not indicated Blood Smear Pathologist Review Reticulocyte Count,Calculated 2.7% (0.6-2.6) Haptoglobin 209mg/dL (34-200) Lactate Dehydrogenase 338U/L (100-190) Direct Bilirubin 0.4mg/dL (0.0-0.3) Test 11/21/16 04:35 11/22/16 05:10 11/25/16 05:30 Band Neutrophils % 3% (1-5) Procalcitonin 0.24ng/mL (0.00-0.08) White Blood Count 10.5th/mm3 (3.8-10.1) Red Blood Count 3.34mil/mm3 (3.90-5.20) Hemoglobin 10.3g/dL (12.0-15.6) Hematocrit 33.4% (35.0-46.0) Mean Corpuscular Volume 100.0fL (81-100) Mean Corpuscular Hemoglobin 30.8pg (27.0-35.0) Mean Corpuscular Hemoglobin Concent 30.8% (32.0-37.0) Red Cell Distribution Width 14.5% (12.3-15.4) Platelet Count 140bil/L (150-400) Neutrophils (%) (Auto) 75.7% (40-74) Lymphocytes (%) (Auto) 14.2% (14-46) Monocytes (%) (Auto) 7.2% (4-12) Eosinophils (%) (Auto) 1.1% (0-5) Basophils (%) (Auto) 0.4% (0-3) Sodium Level 143mEq/L (134-144) Potassium Level 4.6mEq/L (3.5-5.2) Chloride Level 106mEq/L (97-108) Carbon Dioxide Level 29mmol/L (18-29) Blood Urea Nitrogen 23mg/dL (8-27) Creatinine 0.34mg/dL (0.57-1.00) Estimat Glomerular Filtration Rate 261mL/min (>59) Glucose Level 110mg/dL (60-99) Calcium Level 8.2mg/dL (8.5-10.1) Phosphorus Level 3.6mg/dL (2.5-4.9) Magnesium Level 2.2mg/dL (1.6-2.6) Total Bilirubin 0.6mg/dL (0.0-1.2) Aspartate Amino Transf (AST/SGOT) 21U/L (0-50) Alanine Aminotransferase (ALT/SGPT) 12U/L (0-32) Alkaline Phosphatase 57U/L (25-165) Total Protein 5.1g/dL (6.4-8.4) Albumin 2.7g/dL (3.4-5.0) Plan Impression Patient chart reviewed, patient interviewed and anesthestic plan with risks, benefits, and alternatives discussed, and informed consent obtained. ASA Physical Status: ASA3 Severe Disease Anesthetic Support Modalities: Arterial Line Anesthetic Plan: GA, Epidural Bene/Risks/Altern/Consents: Yes HP Complete Prior to Induction: Yes Evin Arellano MD Nov 25, 2016 09:13
[2016-11-25] MEDS ORDERED: Dexamethasone 4 mg/mL Inj IVPUSH PRN (09:15)
[2016-11-25] MEDS ORDERED: EPHEDrine Sulfate 50 mg/mL Inj IVPUSH PRN (09:15)
[2016-11-25] MEDS ORDERED: HYDROmorphone 1 mg/mL Inj IVPUSH PRN (09:15)
[2016-11-25] MEDS ORDERED: Ondansetron 2 mg/mL 2 mL Inj IVPUSH PRN (09:15)
[2016-11-25] MEDS ORDERED: fentaNYL-PF 50 mCg/mL 2 mL Inj IVPUSH PRN (09:15)
[2016-11-25] MEDS ORDERED: MetoCLOpramide 5 mg/mL 2 mL Inj IVPUSH PRN (09:15)
[2016-11-25] MEDS ORDERED: Phenylephrine 10,000 mCg/mL Inj IVPUSH PRN (09:15)
[2016-11-25] MEDS ORDERED: Ketorolac 15 mg/mL Inj IVPUSH PRN (09:30)
[2016-11-25] MEDS ORDERED: Acetaminophen IV 1,000 MG in IV Premix 1 EACH IV PRN (09:30)
--- NOTE | 2016-11-25 09:38 | PCM.SURGOP ---
Surgical Operative Report Date of Service: Nov 25, 2016 Pre Operative Diagnosis Partial small bowel obstruction Post Operative Diagnosis Same secondary to adhesions Procedure: Laparoscopy with lysis of adhesions Surgeon and Credit Cashier: Surgeon: Farshad Redman MD Assistants: Blair Jenkins PA-C; Ar Paredes PA-C Indication for Procedure 85-year-old woman who was admitted on November 15 to the hospital with bowel obstruction. She initially passed a Gastrografin challenge and improved, but had persistent abdominal distention, and developed recurrent nausea and vomiting. After replacement of the nasogastric tube, her distention did not resolve, and she had no return of bowel function. She was placed on TPN. After discussion of risks and benefits, she agreed to proceed with laparoscopy, possible laparotomy, lysis of adhesions. Findings: There was a single tight band adhesion from the right lower quadrant draping across the cecum and terminal ileum. There was a second nonobstructive adhesion from the ileum down to the vaginal cuff, which was lysed, but was not the cause of her obstruction. There were no other adhesions. Procedure Details Because of the perceived likelihood of making an open laparotomy, an epidural catheter was placed before the operation by the anesthesiologist, as well as an arterial catheter. She underwent smooth induction of general endotracheal anesthesia. A Gonzalez catheter was placed. She was placed in the supine position with the right arm tucked, and was prepped and draped in wide sterile fashion. A procedural pause was performed according to the SCOAP checklist, and all were found to be in agreement. A vertical midline incision was made just below the umbilicus, and using Mckee technique, the peritoneal cavity was entered where there were no adhesions. A 5 mm port was placed and pneumoperitoneum was established. Inspection of the abdominal cavity revealed no peritoneal masses. There was no ascites. There were no adhesions to the anterior abdominal wall anywhere. Two additional 5 mm ports were placed under visualization at the level of the umbilicus, one on the right, and one on the left. The patient was placed in the headdown position. Initially, the small bowel was retracted out of the pelvis, and there was an adhesion to the vaginal cuff after prior hysterectomy. This did not look particularly obstructive, as there was no caliber change proximal or distal to that adhesion. Nonetheless, that adhesion was lysed using sharp dissection with Metzenbaum scissors. In order to perform retraction and lysis, an additional 5 mm port was placed in the inferior midline abdominal wall. After that adhesion was lysed, the remainder of the small bowel was able to be easily retracted out of the pelvis. Inspection of the right lower quadrant revealed a tight band adhesion draping over the cecum. As this was retracted, there was a lot of tension on that adhesion, which draped down over the terminal ileum, and was the cause of obstruction. That adhesion was lysed using cautery on Metzenbaum scissors, and it immediately retracted with quite a bit of force. The small bowel was then run from the terminal ileum all the way to the ligament of Treitz, and there were no remaining adhesions. There was an imprint over the terminal ileum with caliber change where the dense band adhesion had draped over the terminal ileum and was attached to the mesentery of the distal ileum. There were no other adhesions. The proximal small bowel was not dilated. The liver was normal. The stomach was normal. The visible portions of the colon were normal. The 5 mm ports were removed and pneumoperitoneum was released. The fascia of the infraumbilical port was closed with an 0 Vicryl simple suture. The skin incisions were closed with running 4-0 Monocryl subcuticular stitches. The Gonzalez catheter was removed. Plans were made to remove the epidural in the recovery room. At the end of the case all needle and sponge counts were correct 2. The patient was awakened from anesthesia without difficulty, and taken to the recovery room in satisfactory condition, having tolerated the procedure well. Complications There were no periprocedural complications identified. Surgical Specimen Removed: No Specimen sent to Pathology: Not applicable Anesthetic Plan: GA, Epidural Grafts, Implants: None Output, Estimated Blood Loss: 10 Blood Administration during chan: No Drains: None Catheters: Urethral 2 Way Gonzalez copies to: mEy Gant MD, Joshua D MD Nov 25, 2016 09:38
--- NOTE | 2016-11-25 10:18 | PCM.ANEP1 ---
Post Anesthesia PACU Phase 1 Assessment Vital Signs Vital Signs Date Time Temp Pulse Resp B/P Pulse Ox O2 Delivery O2 Flow Rate FiO2 11/25/16 10:00 63 16 120/54 98 Simple Mask 8 11/25/16 09:50 65 15 110/62 96 Simple Mask 8 11/25/16 09:45 67 16 111/63 92 Simple Mask 10 11/25/16 09:36 36.9 73 17 103/61 89 Simple Mask 10 11/25/16 06:00 36.9 84 16 151/80 92 Nasal Cannula 2.00 Anesthetic Administered: GA, Epidural Level of Alertness: Awake, talking ARAUJO's with Equal Strength: Yes Pain: No Pain Scale Score: 4 Nausea or Vomiting: No CV Function & Hydration Stable: Yes Airway Device: Oxygen Delivery: Simple Mask Lungs: Clear to Auscultation PACU Phase 2 Assessment Complications: No Patient Instructions Provided: N/A Evin Arellano MD Nov 25, 2016 10:18
--- NOTE | 2016-11-25 10:23 | PCM.PHAPRO ---
Progress Date of Service: Nov 25, 2016 TPN PARENTERAL NUTRITION ORDERS TPN # 6 25-Nov-16 Standard Hang Time: 2100 Substrates Total kcal: 1758 AMINO ACIDS 85 g DEXTROSE 270 g Total Volume (mL): 1600 LIPIDS 50 g Sterile Water for Injection QS mL To Infuse Over (hrs): 24 Total Volume 1600 mL At at a rate of (mL/hr): 67 Additives Sodium Chloride 70 mEq "typical" daily requirements Sodium Acetate 0 mEq Sodium 50-120mEq Potassium Chloride 70 mEq Potassium 60-120mEq Potassium Phosphate 30 mEq Phosphate 20-40mEq Calcium Gluconate 9 mEq Magnesium 8-32mEq Magnesium Sulfate 12 mEq Calcium 9-22mEq Acetate* 80-120mEq Chloride* 80-120mEq Regular Insulin units *Depending on acid-base status Famotidine 20 mg Multivitamins 1 std dose Insulin Regimen Trace Elements 1 std dose none Thiamine 100 mg Regular Low Intensity Subcut Folic Acid 1 mg Regular Medium Intensity Subcut Ascorbic Acid 0 mg Regular High Intensity Subcut Regular Insulin Infusion Other: Jaiden Ryan Nov 25, 2016 10:23
[2016-11-25 11:10] LABS: APPEARANCE,URINE HAZY (CLEAR,HAZY); COLOR,URINE YELLOW (YELLOW); OCCULT BLOOD,URINE NEGATIVE (NEGATIVE); UROBILINOGEN,URINE NORMAL (NORMAL)
[2016-11-25] MEDS: Polyethylene Glycol (PEG) 17 Gm Powder PO SCH (11:20)
[2016-11-25] MEDS: Furosemide 10 mg/mL 2 mL Inj IVPUSH SCH (11:30)
--- NOTE | 2016-11-25 14:25 | NUR ---
Social Work: Continued Discharge Planning D: EMR reviewed. Pt is on day 10 of hospitalization. Per MD in AM multi-disciplinary rounds, pt will be in OR in the AM today. GIANNI received MD order for HH RN 3x/week prior to pt's visit to OR. Per GIANNI notes, pt and rzrirzul-zz-pzl are awaiting pt's clinical course before determining plan of care at home. Per GIANNI note, "SW has acknowledged HH order from MD. When asked about this in rounds, continues to follow for HH need but requested that ONLINE CONTENT EDITOR not act on this order at this time. SW will act on this order only when MD requests it. SW will continue to check in during morning rounds." At this time, pt's defrslpz-pi-sgq Germán Fink will provide transport home via POV when pt is medically stable. GIANNI does not anticipate any discharge needs at this time but will continue to follow if needs arise, R/O HH RN. A: Pt who is independent at baseline. P: SW in OR 11/25. GIANNI will continue to follow for HH need, but states that ONLINE CONTENT EDITOR should not act on this order at this time. At this time, pt's [id number] Germán Fink will provide transport home via POV when pt is medically stable. GIANNI does not anticipate any discharge needs at this time but will continue to follow if needs arise, R/O HH RN. CLARY Morgan
[2016-11-25] MEDS ORDERED: Rocuronium 10 mg/mL 5 mL Inj ONE (14:46)
[2016-11-25] MEDS ORDERED: Propofol 10,000 mCg/mL 20 mL Inj ONE (14:46)
[2016-11-25] MEDS ORDERED: fentaNYL-PF 50 mCg/mL 2 mL Inj ONE (14:46)
[2016-11-25] MEDS ORDERED: Neostigmine 1 mg/mL 10 mL Inj ONE (14:46)
[2016-11-25] MEDS ORDERED: Succinylcholine Chloride 20 mg/mL 5 mL Inj ONE (14:46)
[2016-11-25] MEDS ORDERED: Glycopyrrolate 0.2 MG/ML 1mL Inj ONE (14:46)
[2016-11-25] MEDS: Total Parenteral Nutrition 1 BAG IV SCH (21:00)
[2016-11-25] MEDS: TPN Per Pharmacist XX SCH (21:00)
--- NOTE | 2016-11-25 22:33 | PCM.PNMED ---
Subjective Date of Service Nov 25, 2016 Subjective pt was seen after surgery looked comfortable, denied SOB, cough, n/v Exam Vital Signs Vital Sign - Last Date Time Temp Pulse Resp B/P Pulse Ox O2 Delivery O2 Flow Rate FiO2 11/25/16 19:44 36.6 89 18 154/77 95 Nasal Cannula 3.00 Intake and Output 11/24/16 11/24/16 11/25/16 Cumulative From/Thru 15:00 23:00 07:00 11/14/16 22:43 - 11/25/16 06:54 Intake Total 700 ml 100 ml 70351 ml Output Total 2300 ml 1700 ml 16410 ml Balance -1600 ml -1600 ml -182 ml Intake Oral 700 ml 100 ml 6895 ml IV Total 18443 ml TPN/PPN 4649 ml Output Urine Total 1100 ml 1200 ml 55901 ml Stool Total 600 ml Urine/Stool Mix 850 ml Gastric Drainage Total 1200 ml 500 ml 7245 ml Emesis 650 ml # Voids 7 # Bowel Movements 16 Exam NAD, comfortably laying down on the bed no JVD, MMM, no LAD RRR, nl s1, s2 no mrg CTAB, no w,c S,ND, mildly tender, hypoactive BS+ warm, no edema, pulses 2/2 IVs and Medications Medications Reviewed: Medications were reviewed in detail Lab and Diagnostics Result Diagram: 11/25/1652911/25/16 0530 X-Rays, CTs and MRIs PROCEDURE: X-RAY ABDOMEN WITH ERECT AND/OR DECUBITUS VIEWS ([id number]) INDICATIONS: follow up Small bowel obstruction IMPRESSION: Small bowel obstruction probably slightly worse than on 11/18/16. Dictated by: Mukesh Velazquez M.D. on 11/19/2016 at 12:07 Approved by: Mukesh Velazquez M.D. on 11/19/2016 at 12:09 IMPRESSION: 1. Persistent small bowel obstruction. 2. Air space opacity at the left lung base and small pleural effusions redemonstrated and probable atelectasis within the mid right lung. Dictated by: Brooks Barillas RRA Interpreted: Katelyn Blanchard MD on 11/18/2016 at 10:10 Approved by: Katelyn Blanchard MD, PhD on 11/18/2016 at 13:23 CT Abd / Pelvis Interpretation 11/14 IMPRESSION: Small bowelobstruction assocaited with mesenteric whorling suggesting adhesions/internal hernia. Small volume of ascited Diverticulosis Mild cardiomegaly with pacemaker present Small pericardial effusion Non-emergent incidental findings as noted. Radiologist: Andrei Solorio MD Date of Service: 11/16/16 0645 PROCEDURE: X-RAY KUB ([id number]) INDICATIONS: evaluate bowel obstruction IMPRESSION: Persistent partial small bowel obstruction. Airspace opacity present involving the left lung base suggesting atelectasis versus pneumonia or aspiration. Small effusion may also be present. Correlate clinically. Dictated by: Brooks Barillas RRA Interpreted: Pili Jean MD on 11/16/2016 at 9:42 Approved by: Pili Jean M.D. on 11/16/2016 at 10:18 Assessment & Plan Aliya Jerome is an 85 y.o. female with Nonischemic dilated cardiomyopathy, emphysema, GERD, hyperlipidemia, arthritis, mitral valve prolapse presenting to [facility] emergency department with complaints of diarrhea and abdominal pain acute, active Acute Partial SBO. OIA Loose stool, s/p surgery by 11/25 -appreciate management by surgery -pain control per surgery -NPO for now, advance diet per surgery recs Mild chronic hypoxia, POA, SpO2 remained 90-94% on 2liters NC, O2 requirement seemed unchanged. pt received Doxycyclin 11/23-. this likely represent chronic hypoxic with emphysema -given no respiratory sx, no fever, leukocytosis, mild PCT, will stop abx today and monitor -continue O2 supplement as needed -monitor respiratory function closely post-op course, aggressive suction, incentive spirometer, chest PT chronic,stable, resolved Hyperbilirubinemia, LDH elevated, retic count low, haptoglobin elevated, peripheral smear is essentially normal - stable - US abd ascites, liver: "Fluid-filled, dilated bowel loops within the lower abdomen and pelvis in this patient with history of SBO. small amount of perihepatic fluid" -- She is s/p cholecystectomy - monitor Chronic systolic CHF with EF 30% to 35%. s/p Biventricular pacemaker. Hyperlipidemia - stable - c/w current meds Hypertension - stable - c/w current meds GERD -- famotidine IV DVT prophylaxis- subcutaneous heparin Code status: Patient declined intubation, chest compressions, defibrillations and other electrical shocks, chemical code. Patient would like to be DNR/DNI dispo: likely 2-3more days based on surgical course. VTE Prophylaxis: Sub-Q Heparin (Unfractionated) VTE Mechanical Devices: Intermittant Pneumatic CD Resuscitation Status: DNR/DNI:Do Not Resuscitate/Intubate Time spent 35min Sandeep Otoole MD Nov 25, 2016 22:33
[2016-11-26 00:11] VITALS: BP 126/70; PULSE 78; RESP 18; O2SAT 91
--- NOTE | 2016-11-26 04:07 | NUR ---
Nausea/Rash On initial assessment, patient requested antiemetic medication. Ondansetron 4mg IVP administered. VSS. Patient up to bsc. Patient denies any pain. NG tube draining to continuous wall suction. Patient has red bumpy rash all over back area. Patient denies itching. Patient stated it is from being in bed and getting hot. Patient bilateral buttocks is red. Pillows used to keep patient off reddened area. Call light within reach. Care continues.
[2016-11-26 05:23] VITALS: BP 117/75; PULSE 83; RESP 18; O2SAT 96
[2016-11-26 06:23] LABS: BASOPHILS % (AUTO) 0.3 % (0-3); EOSINOPHILS % (AUTO) 1.4 % (0-5); MONOCYTES % (AUTO) 8.3 % (4-12); Mean Corpuscular Volume 97.6 fL (81-100); NEUTROPHILS % (AUTO) 75.2 % (40-74); Platelet Count 124 bil/L (150-400)
[2016-11-26 06:29] LABS: Magnesium 1.9 mg/dL (1.6-2.6); Phosphorus 3.2 mg/dL (2.5-4.9)
[2016-11-26] MEDS: Polyethylene Glycol (PEG) 17 Gm Powder PO SCH (08:30)
[2016-11-26 09:03] VITALS: BP 123/69; PULSE 83; RESP 19; O2SAT 96
[2016-11-26] MEDS: Heparin 5,000 Unit/mL Inj SUBQ SCH ×2 (09:27→17:40)
[2016-11-26] MEDS: Furosemide 10 mg/mL 2 mL Inj IVPUSH SCH (09:27)
--- NOTE | 2016-11-26 12:38 | PROG NOTE ---
[address] [address] PROGRESS NOTE PATIENT: KASSI WILLIS : 1930 MR#: [id number] ADMIT: 11/15/2016 JOB ID: [id number] DATE: 11/26/2016 SUBJECTIVE: Postop day one from laparoscopic lysis of adhesions. Single band was found. She had been obstructed for 10+ days. This morning she is feeling well, has not had a bowel movement, and has passed minimal flatus. OBJECTIVE: Vital signs are stable but her nasogastric tube has put out roughly 500 cc since her operation. It is a green and bilious in the drainage canister. On examination, her abdomen is quiet, with a fair amount of tympany. LABORATORY: Labs show a white count of 10.2, hematocrit of 33. Chemistries are normal. Glucose is 111. Albumin is 2.6. IMPRESSION AND PLAN: Doing well. Dr. Redman had anticipated possibly getting the NG tube out this morning but given the NG output, minimal flatus, lack of bowel movement, and physical examination I am going to leave it in through the course of the day, consider getting it out this evening but more likely tomorrow morning. Given the duration of obstruction, she may take a few days to open up. This would not be surprising.
[2016-11-26] MEDS: Ondansetron 2 mg/mL 2 mL Inj IVPUSH PRN (16:22)
--- NOTE | 2016-11-26 16:58 | NUR ---
Activity/Nausea Denied nausea for most of shift. at about 1600, patient reported some nausea and zofran administered and had some relief. Up to bathroom SBA and tolerating being out of bed well. Ambulated in hallway with family pushing IV pole. Denies pain.
[2016-11-26 17:07] VITALS: BP 140/81; PULSE 83; RESP 18; O2SAT 97
[2016-11-26 19:49] VITALS: BP 135/75; PULSE 77; RESP 18; O2SAT 92
[2016-11-26] MEDS: TPN Per Pharmacist XX SCH (21:00)
[2016-11-26] MEDS: Total Parenteral Nutrition 1 BAG IV SCH (21:00)
--- NOTE | 2016-11-26 22:40 | PCM.PNMED ---
Subjective Date of Service Nov 26, 2016 Subjective The patient is feeling a little bit better this. She states she passed some stool. She is disappointed she has to have her NG tube in another day as per surgery. However, she understands the need. Exam Vital Signs Vital Sign - Last Date Time Temp Pulse Resp B/P Pulse Ox O2 Delivery O2 Flow Rate FiO2 11/26/16 19:49 36.8 77 18 135/75 92 Nasal Cannula 3.00 Intake and Output 11/25/16 11/25/16 11/26/16 Cumulative From/Thru 15:00 23:00 07:00 11/14/16 22:43 - 11/26/16 06:29 Intake Total 4360 ml 0 ml 1048 ml 78458 ml Output Total 355 ml 325 ml 1200 ml 56643 ml Balance 4005 ml -325 ml -152 ml 3346 ml Intake Oral 0 ml 0 ml 0 ml 6895 ml IV Total 1834 ml 73763 ml TPN/PPN 2526 ml 1048 ml 8223 ml Output Urine Total 225 ml 325 ml 850 ml 80496 ml Stool Total 600 ml Urine/Stool Mix 850 ml Gastric Drainage Total 120 ml 350 ml 7715 ml Emesis 650 ml Estimated Blood Loss 10 ml 10 ml # Voids 7 # Bowel Movements 0 16 Exam General: Patient appears fairly comfortable lying supine in bed with NG tube in place. HEENT: Head is atraumatic and normocephalic. Eyes: Pupils are equally round and reactive to light and accommodation. Extraocular muscles are intact. Sclera are white, anicteric. Subconjunctival mucosa is pink. NG tube is in the left nostril, site is unremarkable. Ears are unremarkable. Oropharynx: There is no mucosal lesions, there is no thrush, there is no pharyngitis. Neck: Is supple, there are no nodes, or masses or tenderness. Chest: Is clear to auscultation and percussion. There are no rales, rhonchi, wheezes or rubs. Heart: Rate, rhythm is regular. There is no new murmur, rub or gallop. Abdomen: Bowel sounds are present. Abdomen is soft, with minimal tenderness, no organomegaly or masses were appreciated. Incision sites are covered with small dressings are clean dry and intact. Extremities: Are symmetrical and well perfused. There is no edema, there is no cellulitis, no rash. Neurologic: There are no focal neurological deficits. Cranial nerves II through XII are intact. There are no sensory or motor deficits. Psychiatric: Patients mood is calm and she shows no sign of agitation. Genital: Deferred Rectal: Deferred Lab and Diagnostics Result Diagram: 11/26/16 0552 11/26/16 0552 X-Rays, CTs and MRIs PROCEDURE: X-RAY ABDOMEN WITH ERECT AND/OR DECUBITUS VIEWS ([id number]) INDICATIONS: follow up Small bowel obstruction IMPRESSION: Small bowel obstruction probably slightly worse than on 11/18/16. Dictated by: Mukesh Velazquez M.D. on 11/19/2016 at 12:07 Approved by: Mukesh Velazquez M.D. on 11/19/2016 at 12:09 IMPRESSION: 1. Persistent small bowel obstruction. 2. Air space opacity at the left lung base and small pleural effusions redemonstrated and probable atelectasis within the mid right lung. Dictated by: Brooks Barillas [facility] Interpreted: Katelyn Blanchard MD on 11/18/2016 at 10:10 Approved by: Katelyn Blanchard MD, PhD on 11/18/2016 at 13:23 CT Abd / Pelvis Interpretation 11/14 IMPRESSION: Small bowelobstruction assocaited with mesenteric whorling suggesting adhesions/internal hernia. Small volume of ascited Diverticulosis Mild cardiomegaly with pacemaker present Small pericardial effusion Non-emergent incidental findings as noted. Radiologist: Andrei Solorio MD Date of Service: 11/16/16 0645 PROCEDURE: X-RAY KUB ([id number]) INDICATIONS: evaluate bowel obstruction IMPRESSION: Persistent partial small bowel obstruction. Airspace opacity present involving the left lung base suggesting atelectasis versus pneumonia or aspiration. Small effusion may also be present. Correlate clinically. Dictated by: Brooks Barillas [facility] Interpreted: Pili Jean MD on 11/16/2016 at 9:42 Approved by: Pili Jean M.D. on 11/16/2016 at 10:18 Assessment & Plan Aliya Jerome is an 85 y.o. female with Nonischemic dilated cardiomyopathy, emphysema, GERD, hyperlipidemia, arthritis, mitral valve prolapse presenting to [facility] emergency department with complaints of diarrhea and abdominal pain Acute Partial SBO., Present at the time of admission, s/p surgery by 11/25. Patient is postop day #1 - We appreciate management by surgery - We will continue pain control per surgery - Discussed with Dr. Love and patient will remain NPO for now, advance diet per surgery recs Mild chronic hypoxia, POA, SpO2 remained 90-94% on 2liters NC, O2 requirement seemed unchanged. pt received Doxycyclin 11/23-. this likely represent chronic hypoxic with emphysema - As there was no respiratory sx, no fever, leukocytosis, mild PCT, antibiotics were discontinued - We will continue O2 supplement as needed - We will monitor respiratory function closely post-op course, aggressive suction, incentive spirometer, chest PT chronic,stable, resolved Hyperbilirubinemia, LDH elevated, retic count low, haptoglobin elevated, peripheral smear is essentially normal - stable - US abd ascites, liver: "Fluid-filled, dilated bowel loops within the lower abdomen and pelvis in this patient with history of SBO. small amount of perihepatic fluid" - She is s/p cholecystectomy - We will continue to monitor Chronic systolic CHF with EF 30% to 35%. s/p Biventricular pacemaker. Hyperlipidemia - Currently stable - We will continue with current meds Hypertension - Currently stable - We will continue with current meds GERD -- Continue famotidine IV Code status: Patient declined intubation, chest compressions, defibrillations and other electrical shocks, chemical code. Patient would like to be DNR/DNI dispo: likely 2-3more days based on surgical course. Pain Evaluation: Adequate Pain Control VTE Prophylaxis: Sub-Q Heparin (Unfractionated) VTE Mechanical Devices: Intermittant Pneumatic CD Resuscitation Status: DNR/DNI:Do Not Resuscitate/Intubate Chuck Ryan MD Nov 26, 2016 22:40
[2016-11-27] MEDS: Heparin 5,000 Unit/mL Inj SUBQ SCH ×3 (01:04→17:22)
--- NOTE | 2016-11-27 01:16 | NUR ---
Nursing, NOC shift TPN infusing via RUE picc; BS at 0030 113. Tolerating ice chips and meds whole w/ sips water. NG suction off/tube clamped x 30 min after med given. Tolerating BRP, steady gait. Denies pain/discomfort. IS at bedside. VSS, CTM for changes.
[2016-11-27 05:08] VITALS: BP 125/73; PULSE 75; RESP 18; O2SAT 93
[2016-11-27 09:03] LABS: BASOPHILS % (AUTO) 0.5 % (0-3); EOSINOPHILS % (AUTO) 1.3 % (0-5); MONOCYTES % (AUTO) 8.3 % (4-12); Mean Corpuscular Hemoglobin 30.8 pg (27.0-35.0); Mean Corpuscular Volume 99.1 fL (81-100); NEUTROPHILS % (AUTO) 75.7 % (40-74); Platelet Count 122 bil/L (150-400)
[2016-11-27] MEDS: Furosemide 10 mg/mL 2 mL Inj IVPUSH SCH (09:33)
[2016-11-27] MEDS: Polyethylene Glycol (PEG) 17 Gm Powder PO SCH (09:38)
[2016-11-27 12:22] VITALS: BP 118/74; PULSE 78; RESP 20; O2SAT 96
[2016-11-27 13:12] VITALS: BP 108/67; PULSE 74; RESP 18; O2SAT 97
--- NOTE | 2016-11-27 14:03 | PROG NOTE ---
[address] [address] PROGRESS NOTE PATIENT: KASSI WILLIS : 1930 MR#: [id number] ADMIT: 11/15/2016 JOB ID: [id number] DATE: 11/27/2016 SUBJECTIVE: She is doing well. NG output remains significant but she is passing small stools and flatus with a markedly decreased abdomen. We gave her trial of nasogastric tube clamping this morning and there was essentially zero residual. PLAN: The plan will be to take her NG tube out, start her on sips of clears, and advance her as tolerated. She continues on TPN but I have stopped all other IV fluid.
[2016-11-27 16:01] VITALS: BP 120/56; PULSE 69; RESP 18; O2SAT 94
--- NOTE | 2016-11-27 18:36 | NUR ---
NG Tube/Activity/O2 Pt NG tube clamped today by surgery; noon unclamped and put to continuous suction. Less than 200mls output (5mls) per order NG tube discontinued. Pt ok to have sips and chips today per surgery. Pt up and ambulated unit two times today with SBA (daughter) for lines, SBA to the BR for lines, steady gait, no c/o pain, SOB or CP. Pt put on 3L O2 NC by NOC shift; during shift today SPO2 down to 91% while pt sleeping. Pt on RA this afternoon while awake. Pt concerned about no O2, encouraged pt that NOC shift would watch her O2 sats and start O2 if it was necessary; pt continues to use IS at BS throughout shift. No c/o SOB when up amb in hallway or up to shower this afternoon. Will continue to monitor with frequent rounds.
[2016-11-27] MEDS: Ondansetron 2 mg/mL 2 mL Inj IVPUSH PRN (19:28)
[2016-11-27 20:03] VITALS: BP 137/75; PULSE 78; RESP 16; O2SAT 92
[2016-11-27] MEDS: Total Parenteral Nutrition 1 BAG IV SCH (21:18)
[2016-11-27] MEDS: TPN Per Pharmacist XX SCH (21:18)
--- NOTE | 2016-11-27 22:30 | PCM.PNMED ---
Subjective Date of Service Nov 27, 2016 Subjective Patient was seen before and after NG tube was removed. While clamp patient was empirically comfortable morning and had minimal amount of output. After removal of the NG tube patient was ambulating with walker out in the hallway. Patient has no new complaints. Exam Vital Signs Vital Sign - Last Date Time Temp Pulse Resp B/P Pulse Ox O2 Delivery O2 Flow Rate FiO2 11/27/16 21:20 Supplement Oxygen 11/27/16 20:03 36.7 78 16 137/75 92 11/27/16 16:01 2.00 Intake and Output 11/26/16 11/26/16 11/27/16 Cumulative From/Thru 15:00 23:00 07:00 11/14/16 22:43 - 11/27/16 06:28 Intake Total 909 ml 774 ml 85370 ml Output Total 1550 ml 1000 ml 91048 ml Balance -641 ml -226 ml 2479 ml Intake Oral 0 ml 6895 ml IV Total 774 ml 58705 ml TPN/PPN 909 ml 9132 ml Output Urine Total 1200 ml 800 ml 15504 ml Stool Total 600 ml Urine/Stool Mix 850 ml Gastric Drainage Total 350 ml 200 ml 8265 ml Emesis 650 ml Estimated Blood Loss 10 ml # Voids 7 # Bowel Movements 1 1 18 Exam General: Patient appears fairly comfortable lying supine in bed with NG tube in place. HEENT: Head is atraumatic and normocephalic. Eyes: Pupils are equally round and reactive to light and accommodation. Extraocular muscles are intact. Sclera are white, anicteric. Subconjunctival mucosa is pink. NG tube is in the left nostril and is clamped, site is unremarkable. Ears are unremarkable. Oropharynx: There is no mucosal lesions, there is no thrush, there is no pharyngitis. Neck: Is supple, there are no nodes, or masses or tenderness. Chest: Is clear to auscultation and percussion. There are no rales, rhonchi, wheezes or rubs. Heart: Rate, rhythm is regular. There is no new murmur, rub or gallop. Abdomen: Bowel sounds are present. Abdomen is soft, with minimal tenderness, no organomegaly or masses were appreciated. Incision sites are covered with small dressings are clean dry and intact. Extremities: Are symmetrical and well perfused. There is no edema, there is no cellulitis, no rash. Neurologic: There are no focal neurological deficits. Cranial nerves II through XII are intact. There are no sensory or motor deficits. Psychiatric: Patients mood is calm and she shows no sign of agitation. Genital: Deferred Rectal: Deferred Lab and Diagnostics Result Diagram: 11/27/1682811/27/16 08 X-Rays, CTs and MRIs PROCEDURE: X-RAY ABDOMEN WITH ERECT AND/OR DECUBITUS VIEWS ([id number]) INDICATIONS: follow up Small bowel obstruction IMPRESSION: Small bowel obstruction probably slightly worse than on 11/18/16. Dictated by: Mukesh Velazquez M.D. on 11/19/2016 at 12:07 Approved by: Mukesh Velazquez M.D. on 11/19/2016 at 12:09 IMPRESSION: 1. Persistent small bowel obstruction. 2. Air space opacity at the left lung base and small pleural effusions redemonstrated and probable atelectasis within the mid right lung. Dictated by: Brooks Barillas [facility] Interpreted: Katelyn Blanchard MD on 11/18/2016 at 10:10 Approved by: Katelyn Blanchard MD, PhD on 11/18/2016 at 13:23 CT Abd / Pelvis Interpretation 11/14 IMPRESSION: Small bowelobstruction assocaited with mesenteric whorling suggesting adhesions/internal hernia. Small volume of ascited Diverticulosis Mild cardiomegaly with pacemaker present Small pericardial effusion Non-emergent incidental findings as noted. Radiologist: Andrei Solorio MD Date of Service: 11/16/16 0645 PROCEDURE: X-RAY KUB ([id number]) INDICATIONS: evaluate bowel obstruction IMPRESSION: Persistent partial small bowel obstruction. Airspace opacity present involving the left lung base suggesting atelectasis versus pneumonia or aspiration. Small effusion may also be present. Correlate clinically. Dictated by: Brooks Barillas [facility] Interpreted: Pili Jean MD on 11/16/2016 at 9:42 Approved by: Pili Jean M.D. on 11/16/2016 at 10:18 Assessment & Plan Aliya Jerome is an 85 y.o. female with Nonischemic dilated cardiomyopathy, emphysema, GERD, hyperlipidemia, arthritis, mitral valve prolapse presenting to [facility] emergency department with complaints of diarrhea and abdominal pain Acute Partial SBO., Present at the time of admission, s/p surgery by 11/25. Patient is postop day #2 - We appreciate management by surgery - We will continue pain control per surgery - Discussed with Dr. Love and patient will have NG tube removed today and diet will be advanced per surgery. Mild chronic hypoxia, POA, SpO2 remained 90-94% on 2liters NC, O2 requirement seemed unchanged. pt received Doxycyclin 11/23-. this likely represent chronic hypoxic with emphysema - As there was no respiratory sx, no fever, leukocytosis, mild PCT, antibiotics were discontinued - We will continue O2 supplement as needed - We will monitor respiratory function closely post-op course, aggressive suction, incentive spirometer, chest PT Hyperbilirubinemia, LDH elevated, retic count low, haptoglobin elevated, peripheral smear is essentially normal - stable - US abd ascites, liver: "Fluid-filled, dilated bowel loops within the lower abdomen and pelvis in this patient with history of SBO. small amount of perihepatic fluid" - She is s/p cholecystectomy - We will continue to monitor Chronic systolic CHF with EF 30% to 35%. s/p Biventricular pacemaker. Hyperlipidemia - Currently stable - We will continue with current meds Hypertension - Currently stable - We will continue with current meds GERD -- Continue famotidine IV Code status: Patient declined intubation, chest compressions, defibrillations and other electrical shocks, chemical code. Patient would like to be DNR/DNI dispo: likely 2 more days based on surgical course. Pain Evaluation: Adequate Pain Control VTE Prophylaxis: Sub-Q Heparin (Unfractionated) VTE Mechanical Devices: Intermittant Pneumatic CD Resuscitation Status: DNR/DNI:Do Not Resuscitate/Intubate Chuck Ryan MD Nov 27, 2016 22:30
[2016-11-28] MEDS: Heparin 5,000 Unit/mL Inj SUBQ SCH ×3 (00:48→16:51)
--- NOTE | 2016-11-28 04:19 | NUR ---
Nausea Pt reporting nausea at beginning of shift and was given 4mg IV Zofran with relief. Pt on clear liquid diet and taking this slowly. TPN running at 67 ml/hr. No complaints of pain from pt. Lap sites are CDI. Pt placed on 1L O2 via NC to keep O2 sats above 92%.
[2016-11-28 04:38] VITALS: BP 99/60; PULSE 72; RESP 16; O2SAT 95
--- NOTE | 2016-11-28 08:16 | NUR ---
NUTRITION FOLLOW-UP: ASSESS: 85 YO F admitted with partial SBO, started on TPN 11/20. NGT removed. Pt postop day #3. TPN was increased to goal macronutrients 11/24, appears to be well tolerated. PMHX: Cardiomyopathy, emphysema, GERD, HLD, MV prolapse, arthritis LABS: Reviewed. Cr 0.32, Glu 120, Ca 8.3, Alb 2.6 MEDS: Reviewed. Lasix. GI: 2 BM 11/27. WT: 62.0 kg, BMI 21.2 kg/m2, Admit weight: 60.9 kg, BMI 21.7 DIET: NPO/CL x 13 days. NUTRITION SUPPORT: TPN: 270 g dextrose, 85 g Amino Acids, 50 g lipids to provide 1758 kcals and 85 g protein per day (100% estimated needs) ESTIMATED NEEDS: Calories: 3075-2862 kcal/day (25-30 kcal/kg BW) Protein: 75-90 g/day (1.2-1.5 g/kg BW) Fluids: ~2067-8483 ml/day (25-30 ml/kg BW) NUTRITION DIAGNOSIS: 1) Inadequate oral intake related to altered GI function as evidenced by current NPO/CL status - PERSISTS. NUTRITION INTERVENTION: 1) Recommend advancing diet when medically appropriate 2) Recommend continue current TPN at goal macronutrients. 3) Recommend continue to monitor labs while on TPN, especially AST, ALT and Alk phos. MONITOR/EVALUATE: TPN tolerance, diet advance, weights, labs, GI/nutrition status. Follow per high nutrition risk guidelines.
[2016-11-28] MEDS: Furosemide 10 mg/mL 2 mL Inj IVPUSH SCH (08:18)
[2016-11-28] MEDS: Polyethylene Glycol (PEG) 17 Gm Powder PO SCH (08:20)
[2016-11-28 08:59] LABS: BASOPHILS % (AUTO) 0.6 % (0-3); EOSINOPHILS % (AUTO) 1.8 % (0-5); MONOCYTES % (AUTO) 10.1 % (4-12); Mean Corpuscular Hemoglobin 30.5 pg (27.0-35.0); Mean Corpuscular Volume 100.3 fL (81-100); NEUTROPHILS % (AUTO) 70.4 % (40-74); Platelet Count 115 bil/L (150-400)
[2016-11-28 09:21] VITALS: BP 125/70; PULSE 72; RESP 18; O2SAT 93
[2016-11-28 09:33] LABS: Magnesium 2.1 mg/dL (1.6-2.6)
--- NOTE | 2016-11-28 11:07 | PCM.PHAPRO ---
Progress TPN TPN Management: -Day 9 of TPN -electrolytes remaining stable, slight adjustments for K+ and phos -formula for this evening: PARENTERAL NUTRITION ORDERS TPN # 9 28-Nov-16 Standard Hang Time: 2100 Substrates Total kcal: 1758 AMINO ACIDS 85 g DEXTROSE 270 g Total Volume (mL): 1600 LIPIDS 50 g Sterile Water for Injection QS mL To Infuse Over (hrs): 24 Total Volume 1600 mL At at a rate of (mL/hr): 67 Additives Sodium Chloride 70 mEq "typical" daily requirements Sodium Acetate 0 mEq Sodium 50-120mEq Potassium Chloride 50 mEq Potassium 60-120mEq Potassium Phosphate 20 mEq Phosphate 20-40mEq Calcium Gluconate 9 mEq Magnesium 8-32mEq Magnesium Sulfate 12 mEq Calcium 9-22mEq Acetate* 80-120mEq Chloride* 80-120mEq Regular Insulin units *Depending on acid-base status Famotidine 20 mg Multivitamins 1 std dose Insulin Regimen Trace Elements 1 std dose none Thiamine mg Regular Low Intensity Subcut Folic Acid mg Regular Medium Intensity Subcut Ascorbic Acid 0 mg Regular High Intensity Subcut Regular Insulin Infusion Other: Mallory Baker [facility] Nov 28, 2016 11:07
--- NOTE | 2016-11-28 14:10 | PCM.PNSURG ---
Subjective Date of Service: Nov 28, 2016 Date of Service: Nov 28, 2016 Visit Information: Reason for Visit SBO Surgery/Surgery Date EXP LAP, LYSIS OF ADHESIONS 11/25/16 Post-Op Day # 3 Date of Admission: Nov 15, 2016 at 01:17 Hospital Day # Subjective: Seen patient at bedside with daughter in room. Pleasantly denies f/c, n/v. Wonders if ok to walk more than 3 loops. Notes flatus and small singular bm. Tolerating sips of cls. Gastrointestinal: Tolerating Oral Feedings, No N/V, Passing Flatus, Passing Stool (small x 1) Postop Activity: Ambulates with Assist Device (easily.) Objective Objective pleasant elderly, appearing younger than stated age, female in nad. Vital Sign- Last 8 Hours Date Time Temp Pulse Resp B/P Pulse Ox O2 Delivery O2 Flow Rate FiO2 11/28/16 09:21 36.6 72 18 125/70 93 Room Air Intake and Output- Last 8 Hour 11/28/16 Cumulative From/Thru 07:00 11/14/16 22:43 - 11/28/16 06:29 Intake Total 790 ml 55937 ml Output Total 700 ml 41941 ml Balance 90 ml 2163 ml Intake Oral 100 ml 7095 ml IV Total 22813 ml TPN/PPN 690 ml 9822 ml Output Urine Total 700 ml 03155 ml Stool Total 600 ml Urine/Stool Mix 850 ml Gastric Drainage Total 8270 ml Emesis 650 ml Estimated Blood Loss 10 ml # Voids 7 # Bowel Movements 0 19 General: Alert, Cooperative, No Acute Distress Lungs: Clear to Auscultation Heart: Regular Rate/Rhythm Abdomen: Soft, Appropriately tender, Protuberant, Normoactive bowel tones Result Diagram: 11/28/16 0438 11/28/16 0438 Assessment & Plan Impression satisfactory postop course now pod 3 from lysis of adhesions Improved bowel function with no nausea s/p dc ngt and flatus and min bm Strength good afeb, vss Problems: Plan wean tpn adat am labs-->cmp, cbc surgery will follow VTE Prophylaxis: Sub-Q Heparin (Unfractionated) Resuscitation Status: DNR/DNI:Do Not Resuscitate/Intubate Jose Ta PA-C Nov 28, 2016 14:10
--- NOTE | 2016-11-28 14:20 | NUR ---
TAVIA signed @ 1218PM
[2016-11-28 20:29] VITALS: BP 125/67; PULSE 59; RESP 18; O2SAT 95
[2016-11-28] MEDS: TPN Per Pharmacist XX SCH (22:15)
[2016-11-28] MEDS: Total Parenteral Nutrition 1 BAG IV SCH (22:15)
--- NOTE | 2016-11-28 23:16 | PCM.PNMED ---
Subjective Date of Service Nov 28, 2016 Subjective The patient is feeling much better after NG tube has been removed. She is tolerating clear liquids. And she has been ambulating in the hallway. However , she has had very little in the way of bowel activity. Exam Vital Signs Vital Sign - Last Date Time Temp Pulse Resp B/P Pulse Ox O2 Delivery O2 Flow Rate FiO2 11/28/16 20:55 Supplement Oxygen 11/28/16 20:29 36.6 59 18 125/67 95 11/28/16 04:38 1.00 Intake and Output 11/27/16 11/27/16 11/28/16 Cumulative From/Thru 15:00 23:00 07:00 11/14/16 22:43 - 11/28/16 06:29 Intake Total 999 ml 790 ml 11874 ml Output Total 1405 ml 700 ml 96168 ml Balance -406 ml 90 ml 2163 ml Intake Oral 100 ml 100 ml 7095 ml IV Total 899 ml 93347 ml TPN/PPN 690 ml 9822 ml Output Urine Total 1400 ml 700 ml 79543 ml Stool Total 600 ml Urine/Stool Mix 850 ml Gastric Drainage Total 5 ml 8270 ml Emesis 650 ml Estimated Blood Loss 10 ml # Voids 7 # Bowel Movements 1 0 19 Exam General: Patient appears more comfortable without NG tube and is in good spirits. HEENT: Head is atraumatic and normocephalic. Eyes: Pupils are equally round and reactive to light and accommodation. Extraocular muscles are intact. Sclera are white, anicteric. Subconjunctival mucosa is pink. NG tube has been removed. Ears are unremarkable. Oropharynx: There is no mucosal lesions, there is no thrush, there is no pharyngitis. Neck: Is supple, there are no nodes, or masses or tenderness. Chest: Is clear to auscultation and percussion. There are no rales, rhonchi, wheezes or rubs. Heart: Rate, rhythm is regular. There is no new murmur, rub or gallop. Abdomen: Bowel sounds are present. Abdomen is soft, with minimal tenderness, no organomegaly or masses were appreciated. Incision sites are covered with small dressings are clean dry and intact. Extremities: Are symmetrical and well perfused. There is no edema, there is no cellulitis, no rash. Neurologic: There are no focal neurological deficits. Cranial nerves II through XII are intact. There are no sensory or motor deficits. Psychiatric: Patients mood is calm and she shows no sign of agitation. Genital: Deferred Rectal: Deferred Lab and Diagnostics Result Diagram: 11/28/1643711/28/16437 X-Rays, CTs and MRIs PROCEDURE: X-RAY ABDOMEN WITH ERECT AND/OR DECUBITUS VIEWS ([id number]) INDICATIONS: follow up Small bowel obstruction IMPRESSION: Small bowel obstruction probably slightly worse than on 11/18/16. Dictated by: Mukesh Velazquez M.D. on 11/19/2016 at 12:07 Approved by: Mukesh Velazquez M.D. on 11/19/2016 at 12:09 IMPRESSION: 1. Persistent small bowel obstruction. 2. Air space opacity at the left lung base and small pleural effusions redemonstrated and probable atelectasis within the mid right lung. Dictated by: Brooks Barillas [facility] Interpreted: Katelyn Blanchard MD on 11/18/2016 at 10:10 Approved by: Katelyn Blanchard MD, PhD on 11/18/2016 at 13:23 CT Abd / Pelvis Interpretation 11/14 IMPRESSION: Small bowelobstruction assocaited with mesenteric whorling suggesting adhesions/internal hernia. Small volume of ascited Diverticulosis Mild cardiomegaly with pacemaker present Small pericardial effusion Non-emergent incidental findings as noted. Radiologist: Andrei Solorio MD Date of Service: 11/16/1645 PROCEDURE: X-RAY KUB ([id number]) INDICATIONS: evaluate bowel obstruction IMPRESSION: Persistent partial small bowel obstruction. Airspace opacity present involving the left lung base suggesting atelectasis versus pneumonia or aspiration. Small effusion may also be present. Correlate clinically. Dictated by: Brooks Barillas [facility] Interpreted: Pili Jean MD on 11/16/2016 at 9:42 Approved by: Pili Jean M.D. on 11/16/2016 at 10:18 Assessment & Plan Aliya Jerome is an 85 y.o. female with Nonischemic dilated cardiomyopathy, emphysema, GERD, hyperlipidemia, arthritis, mitral valve prolapse presenting to [facility] emergency department with complaints of diarrhea and abdominal pain Acute Partial SBO., Present at the time of admission, s/p surgery by 11/25. Patient is postop day #3 - We appreciate management by surgery - We will continue pain control per surgery - Patient had her NG tube removed yesterday and is tolerating clear liquids today.. Mild chronic hypoxia, POA, SpO2 remained 90-94% on 2liters NC, O2 requirement seemed unchanged. pt received Doxycyclin 11/23-. this likely represent chronic hypoxic with emphysema - As there was no respiratory sx, no fever, leukocytosis, mild PCT, antibiotics were discontinued - We will continue O2 supplement as needed - We will monitor respiratory function closely post-op course, aggressive suction, incentive spirometer, chest PT Hyperbilirubinemia, LDH elevated, retic count low, haptoglobin elevated, peripheral smear is essentially normal - stable - US abd ascites, liver: "Fluid-filled, dilated bowel loops within the lower abdomen and pelvis in this patient with history of SBO. small amount of perihepatic fluid" - She is s/p cholecystectomy - We will continue to monitor Chronic systolic CHF with EF 30% to 35%. s/p Biventricular pacemaker. Hyperlipidemia - Currently stable - We will continue with current meds Hypertension - Currently stable - We will continue with current meds GERD -- Continue famotidine IV Code status: Patient declined intubation, chest compressions, defibrillations and other electrical shocks, chemical code. Patient would like to be DNR/DNI dispo: likely 1-2 more days based on surgical course. Pain Evaluation: Adequate Pain Control VTE Prophylaxis: Sub-Q Heparin (Unfractionated) VTE Mechanical Devices: Intermittant Pneumatic CD Resuscitation Status: DNR/DNI:Do Not Resuscitate/Intubate Chuck Ryan MD Nov 28, 2016 23:16
[2016-11-29] MEDS: Heparin 5,000 Unit/mL Inj SUBQ SCH ×3 (00:29→16:41)
[2016-11-29 05:26] VITALS: BP 131/62; PULSE 73; RESP 18; O2SAT 96
[2016-11-29 05:26] LABS: BASOPHILS % (AUTO) 0.5 % (0-3); EOSINOPHILS % (AUTO) 1.7 % (0-5); MONOCYTES % (AUTO) 11.6 % (4-12); Mean Corpuscular Hemoglobin 30.3 pg (27.0-35.0); Mean Corpuscular Volume 97.9 fL (81-100); NEUTROPHILS % (AUTO) 63.2 % (40-74); Platelet Count 123 bil/L (150-400)
--- NOTE | 2016-11-29 06:24 | NUR ---
Activity Pt had 2 Liquid BMs last night and continues to pass gas. No complaints of pain or nausea. New mepilex dressing placed on coccyx this morning, skin blanches. TPN running overnight at 67ml/hr. Pt on clear liquids.
--- NOTE | 2016-11-29 07:54 | PROG NOTE ---
[address] [address] PROGRESS NOTE PATIENT: KASSI WILLIS : 1930 MR#: [id number] ADMIT: 11/15/2016 JOB ID: [id number] DATE: 11/29/2016 SUBJECTIVE: The patient is seen in followup. She is doing well. She had two loose bowel movements overnight. She also was passing quite a bit of flatus. She is ambulating in the halls. She has very little abdominal pain. She is hungry. OBJECTIVE: Temperature 36.7, pulse 73, pulse 131/62, saturation 96% on room air. General, she is resting in bed in no acute distress. Chest is clear. Heart regular rate and rhythm, no murmurs. Abdomen is soft, flat. Her incisions are clean with no erythema. Bowel tones are active. LABORATORIES: White count is 6.0, hematocrit 32.0, platelets 123. Creatinine 0.33. Glucose 100. Albumin 2.6. ASSESSMENT AND PLAN: An 85-year-old woman status post laparoscopic lysis of adhesions for partial bowel obstruction. She is doing very well with return of bowel function. She will be given a soft diet today. I think we should let her current bag of TPN run out, but not renew it for tomorrow. I suspect that she may be ready for discharge from the hospital by tomorrow.
[2016-11-29] MEDS: Polyethylene Glycol (PEG) 17 Gm Powder PO SCH (08:48)
[2016-11-29 13:06] VITALS: BP 114/67; PULSE 78; RESP 17; O2SAT 96
--- NOTE | 2016-11-29 18:43 | NUR ---
Nutrition- TPN dose rate decreased to half in preparation to dc med this pm. Patient tolerating soft diet without nausea or abd. pain. Up to bathroom and having loose stool. Patient is planning for discharge tomorrow, and wants to know if Dr Redman will prescribe laxative for home.
[2016-11-29 19:49] VITALS: BP 126/68; PULSE 83; RESP 18; O2SAT 93
--- NOTE | 2016-11-29 21:56 | PCM.PNMED ---
Subjective Date of Service Nov 29, 2016 Subjective Patient is tolerating a soft diet fairly well. She has a little bit of nausea but no emesis or vomiting. He has been ambulating in the hallway and has no new complaints. Exam Vital Signs Vital Sign - Last Date Time Temp Pulse Resp B/P Pulse Ox O2 Delivery O2 Flow Rate FiO2 11/29/16 20:28 Supplement Oxygen 11/29/16 19:49 36.6 83 18 126/68 93 11/28/16 04:38 1.00 Intake and Output 11/28/16 11/28/16 11/29/16 Cumulative From/Thru 15:00 23:00 07:00 11/14/16 22:43 - 11/29/16 05:10 Intake Total 1714 ml 676 ml 76510 ml Output Total 1300 ml 21271 ml Balance 414 ml 676 ml 3253 ml Intake Oral 850 ml 7945 ml IV Total 88044 ml TPN/PPN 864 ml 676 ml 07285 ml Output Urine Total 1300 ml 03937 ml Stool Total 600 ml Urine/Stool Mix 850 ml Gastric Drainage Total 8270 ml Emesis 650 ml Estimated Blood Loss 10 ml # Voids 7 # Bowel Movements 1 20 Exam General: Patient remains in good spirits and appears quite comfortable lying supine in bed. She was seen earlier ambulating in the hallway.. HEENT: Head is atraumatic and normocephalic. Eyes: Pupils are equally round and reactive to light and accommodation. Extraocular muscles are intact. Sclera are white, anicteric. Subconjunctival mucosa is pink. NG tube has been removed. Ears are unremarkable. Oropharynx: There is no mucosal lesions, there is no thrush, there is no pharyngitis. Neck: Is supple, there are no nodes, or masses or tenderness. Chest: Is clear to auscultation and percussion. There are no rales, rhonchi, wheezes or rubs. Heart: Rate, rhythm is regular. There is no new murmur, rub or gallop. Abdomen: Bowel sounds are present. Abdomen is soft, with minimal tenderness, no organomegaly or masses were appreciated. Incision sites are covered with small dressings are clean dry and intact. There is tympany to percussion Extremities: Are symmetrical and well perfused. There is no edema, there is no cellulitis, no rash. Neurologic: There are no focal neurological deficits. Cranial nerves II through XII are intact. There are no sensory or motor deficits. Psychiatric: Patients mood is calm and she shows no sign of agitation. Genital: Deferred Rectal: Deferred Lab and Diagnostics Result Diagram: 11/29/16 0511 11/29/16 05 Microbiology Stool gastrointestinal PCR panel was negative 2 X-Rays, CTs and MRIs PROCEDURE: X-RAY ABDOMEN WITH ERECT AND/OR DECUBITUS VIEWS ([id number]) INDICATIONS: follow up Small bowel obstruction IMPRESSION: Small bowel obstruction probably slightly worse than on 11/18/16. Dictated by: Mukesh Velazquez M.D. on 11/19/2016 at 12:07 Approved by: Mukesh Velazquez M.D. on 11/19/2016 at 12:09 IMPRESSION: 1. Persistent small bowel obstruction. 2. Air space opacity at the left lung base and small pleural effusions redemonstrated and probable atelectasis within the mid right lung. Dictated by: Brooks Barillas [facility] Interpreted: Katelyn Blanchard MD on 11/18/2016 at 10:10 Approved by: Katelyn Blanchard MD, PhD on 11/18/2016 at 13:23 CT Abd / Pelvis Interpretation 11/14 IMPRESSION: Small bowelobstruction assocaited with mesenteric whorling suggesting adhesions/internal hernia. Small volume of ascited Diverticulosis Mild cardiomegaly with pacemaker present Small pericardial effusion Non-emergent incidental findings as noted. Radiologist: Andrei Solorio MD Date of Service: 11/16/16 0645 PROCEDURE: X-RAY KUB ([id number]) INDICATIONS: evaluate bowel obstruction IMPRESSION: Persistent partial small bowel obstruction. Airspace opacity present involving the left lung base suggesting atelectasis versus pneumonia or aspiration. Small effusion may also be present. Correlate clinically. Dictated by: Brooks Barillas [facility] Interpreted: Pili Jean MD on 11/16/2016 at 9:42 Approved by: Pili Jean M.D. on 11/16/2016 at 10:18 Assessment & Plan Aliya Jerome is an 85 y.o. female with Nonischemic dilated cardiomyopathy, emphysema, GERD, hyperlipidemia, arthritis, mitral valve prolapse presenting to [facility] emergency department with complaints of diarrhea and abdominal pain Acute Partial SBO., Present at the time of admission, s/p surgery by 11/25. Patient is postop day #3 - We appreciate management by surgery - We will continue pain control per surgery - Patient had her NG tube removed 2 days ago and is tolerating soft diet today. - TPN will be discontinued Mild chronic hypoxia, POA, SpO2 remained 90-94% on 2liters NC, O2 requirement seemed unchanged. pt received Doxycyclin 11/23-. this likely represent chronic hypoxic with emphysema - As there was no respiratory sx, no fever, leukocytosis, mild PCT, antibiotics were discontinued - We will continue O2 supplement as needed - We will monitor respiratory function closely post-op course, aggressive suction, incentive spirometer, chest PT Hyperbilirubinemia, LDH elevated, retic count low, haptoglobin elevated, peripheral smear is essentially normal - stable - US abd ascites, liver: "Fluid-filled, dilated bowel loops within the lower abdomen and pelvis in this patient with history of SBO. small amount of perihepatic fluid" - She is s/p cholecystectomy - We will continue to monitor Chronic systolic CHF with EF 30% to 35%. s/p Biventricular pacemaker. Hyperlipidemia - Currently stable - We will continue with current meds Hypertension - Currently stable - We will continue with current meds GERD -- Continue famotidine IV Code status: Patient declined intubation, chest compressions, defibrillations and other electrical shocks, chemical code. Patient would like to be DNR/DNI dispo: likely 1-2 more days based on surgical course. Pain Evaluation: Adequate Pain Control VTE Prophylaxis: Sub-Q Heparin (Unfractionated) VTE Mechanical Devices: Intermittant Pneumatic CD Resuscitation Status: DNR/DNI:Do Not Resuscitate/Intubate Chuck Ryan MD Nov 29, 2016 21:56
[2016-11-30] MEDS: Heparin 5,000 Unit/mL Inj SUBQ SCH ×2 (00:57→08:11)
--- NOTE | 2016-11-30 03:32 | NUR ---
Activity TPN discontinued at 2129. DL PICC now SL. Pt continues to tolerate soft diet. Pt has had one liquid stool tonight. Denies pain. Pt has been up to BR and observed steady gait independently.
[2016-11-30 04:30] VITALS: BP 138/72; PULSE 78; RESP 18; O2SAT 93
[2016-11-30 04:57] LABS: BASOPHILS % (AUTO) 0.9 % (0-3); MONOCYTES % (AUTO) 7.9 % (4-12); Mean Corpuscular Hemoglobin 30.6 pg (27.0-35.0); Mean Corpuscular Volume 97.8 fL (81-100); NEUTROPHILS % (AUTO) 57.7 % (40-74); Platelet Count 154 bil/L (150-400)
--- NOTE | 2016-11-30 07:34 | PROG NOTE ---
[address] [address] PROGRESS NOTE PATIENT: KASSI WILLIS : 1930 MR#: [id number] ADMIT: 11/15/2016 JOB ID: [id number] DATE: 11/30/2016 SUBJECTIVE: The patient is seen in followup. She is doing well. She tolerated a soft general diet yesterday. Her last bowel movement was yesterday afternoon. She has no nausea. OBJECTIVE: Temperature 36.7, pulse 78, blood pressure 138/72, saturation 93% on room air. In general, she is resting in bed, in no acute distress. Chest is clear. Heart: Regular rate and rhythm. No murmurs. Abdomen is flat and soft, nondistended. Bowel tones are present. Her incisions are clean with no erythema. LABORATORIES: White count 7.0, hematocrit 35.1, platelets 154. Creatinine 0.39, glucose 103, albumin 3.1. ASSESSMENT AND PLAN: An 85-year-old woman, status post laparoscopic lysis of adhesions for partial small bowel obstruction. Her bowel obstruction has resolved and she is doing well. I think she can be discharged to home today. She is interested in staying on MiraLAX because she does tend to have some chronic constipation. I would like her to follow up with me in the [facility] in approximately one week.
[2016-11-30] MEDS: Polyethylene Glycol (PEG) 17 Gm Powder PO SCH ×2 (08:11→08:14)
--- NOTE | 2016-11-30 11:35 | NUR ---
Social Work- Readiness for Discharge D: EMR reviewed. Pt is on day 15 of hospitalization. Per MD in AM multi-disciplinary rounds, pt is likely to discharge today. Pt is POD 5. Pt's PICC was removed, TPN weaned, and NG tube removed. [employer] awaits discharge orders. SW received MD order for HH RN 3x/week on November 17. SW met with pt at bedside regarding discharge plan. Pt does not meet homebound criteria and does not qualify for HH. notified of this. SW requested MD cancel HH order as no action has been taken yet. Pt was observed ambulating in her room during this conversation. Pt has been ambulating in the halls during this admission. Pt is excited to go home. Pt reports that her son and other family members have coordinated a scheduled to check in on her and provide her support. No discharge concerns identified at this time. Pt to discharge home with friend to transport via POV, no discharge needs identified. SW will continue to follow if needs arise. A: Pt who is independent at baseline. P: No discharge concerns identified at this time. Pt to discharge home with friend to transport via POV, no discharge needs identified. SW will continue to follow if needs arise. Jaycee Benitez, [employer]
--- NOTE | 2016-11-30 11:45 | PCM.DIMED ---
Discharge Instructions Date of Service Nov 30, 2016 Dates of Hospitalization Nov 15, 2016 at 01:17 Discharge Diagnosis Discharge Diagnosis Bowel Obstruction Diet Discharge Diet: Heart Healthy (May increase diet gradually as tolerated.) Activity Discharge Activity: No restrictions (Patient may increase activity gradually as tolerated.) Call your provider Call your provider for: Fever or Chills, Shortness of breath, Bleeding, Chest pain, Vomitting, Weakness (unilateral) Patient Instructions Follow-up Provider: Emy Gant MD Follow-up with PCP in: 1 week Provider: Farshad Redman MD Follow-up in: 1 week Chuck Ryan MD Nov 30, 2016 11:45
--- NOTE | 2016-11-30 12:25 | NUR ---
Social Work- Discharge D: EMR reviewed. Pt is on day 15 of hospitalization. Pt to discharge today, discharge orders are active. Pt to discharge home with friend to transport via POV, no discharge needs identified. A: Pt who is independent at baseline. P: No discharge concerns identified at this time. Pt to discharge home with friend to transport via POV, no discharge needs identified. CLARY Manrique
--- NOTE | 2016-11-30 13:30 | NUR ---
discharged home with family. will have f/u appts with Dr Redman office and with her PCP. no new prescriptions. Pt is eating/drinking well, no nausea, no pain/discomfort. She is ambulatory. Incisions healing well. PICC removed prior to discharge
--- NOTE | 2016-11-30 23:46 | PCM.DC.MED ---
Discharge Summary Date of Service Nov 30, 2016 Dates of Hospitalization Date of Hospital Admission Nov 15, 2016 at 01:17 Date of Discharge: Nov 30, 2016 Providers: Admitting Physician: Chuck Ryan MD Primary Care Physician: Emy Gant MD Attending Physician: Chuck Ryan MD Diagnosis at Time of Discharge Diagnosis at Time of Discharge Bowel Obstruction Procedures XRay, CTs & MRIs PROCEDURE: X-RAY ABDOMEN WITH ERECT AND/OR DECUBITUS VIEWS ([id number]) INDICATIONS: follow up Small bowel obstruction IMPRESSION: Small bowel obstruction probably slightly worse than on 11/18/16. Dictated by: Mukesh Velazquez M.D. on 11/19/2016 at 12:07 Approved by: Mukesh Velazquez M.D. on 11/19/2016 at 12:09 IMPRESSION: 1. Persistent small bowel obstruction. 2. Air space opacity at the left lung base and small pleural effusions redemonstrated and probable atelectasis within the mid right lung. Dictated by: Brooks Barillas [facility] Interpreted: Katelyn Blanchard MD on 11/18/2016 at 10:10 Approved by: Katelyn Blanchard MD, PhD on 11/18/2016 at 13:23 CT Abd / Pelvis Interpretation 11/14 IMPRESSION: Small bowelobstruction assocaited with mesenteric whorling suggesting adhesions/internal hernia. Small volume of ascited Diverticulosis Mild cardiomegaly with pacemaker present Small pericardial effusion Non-emergent incidental findings as noted. Radiologist: Andrei Solorio MD Date of Service: 11/16/16 0645 PROCEDURE: X-RAY KUB ([id number]) INDICATIONS: evaluate bowel obstruction IMPRESSION: Persistent partial small bowel obstruction. Airspace opacity present involving the left lung base suggesting atelectasis versus pneumonia or aspiration. Small effusion may also be present. Correlate clinically. Dictated by: Brooks Barillas A Interpreted: Pili Jean MD on 11/16/2016 at 9:42 Approved by: Pili Jean M.D. on 11/16/2016 at 10:18 Brief History Aliya Jerome is an 85 y.o. female with Nonischemic dilated cardiomyopathy, emphysema, GERD, hyperlipidemia, arthritis, mitral valve prolapse presenting to [facility] emergency department with complaints of diarrhea and abdominal pain onset 3 days ago. Patient reported the diarrhea started on Monday. Associated symptoms includes nausea, intermittent abdominal pain (diffuse, achy pain without any radiation), and dizziness. She denies vomiting, fever, bloody/tarry stool, and hematochezia. Patient suspected symptoms started right after starting antibiotics. Pt reports having a pacemaker insertion on 11/08/16 and was discharged on Keflex. Patient denies any chest pain or shortness of breathe Case discussed with Dr Welch, CT confirmed small bowel obstruction. Symptoms mild not requiring NG tube placement. Patient was admitted to the hospital service for further evaluation and treatment. Hospital Course Aliya Jerome is an 85 y.o. female with Nonischemic dilated cardiomyopathy, emphysema, GERD, hyperlipidemia, arthritis, mitral valve prolapse presenting to [facility] emergency department with complaints of diarrhea and abdominal pain. The patient was admitted to the hospital service for further evaluation and treatment. Acute Partial SBO., Present at the time of admission, s/p surgery by 11/25. Patient is postop day #4 - We appreciate management by surgery - We will continue pain control per surgery - Patient had her NG tube removed 3 days ago and is tolerating soft diet today. - TPN will be discontinued - She is now tolerating a soft diet. Mild chronic hypoxia, POA, SpO2 remained 90-94% on 2liters NC, O2 requirement seemed unchanged. pt received Doxycyclin 11/23-. this likely represent chronic hypoxic with emphysema - As there was no respiratory sx, no fever, leukocytosis, mild PCT, antibiotics were discontinued - We will continue O2 supplement as needed - We will monitor respiratory function closely post-op course, aggressive suction, incentive spirometer, chest PT Hyperbilirubinemia, LDH elevated, retic count low, haptoglobin elevated, peripheral smear is essentially normal - stable - US abd ascites, liver: "Fluid-filled, dilated bowel loops within the lower abdomen and pelvis in this patient with history of SBO. small amount of perihepatic fluid" - She is s/p cholecystectomy - We will continue to monitor Chronic systolic CHF with EF 30% to 35%. s/p Biventricular pacemaker. Hyperlipidemia - Currently stable - We will continue with current meds Hypertension - Currently stable - We will continue with current meds GERD -- Continue famotidine IV Code status: Patient declined intubation, chest compressions, defibrillations and other electrical shocks, chemical code. Patient would like to be DNR/DNI Disposition: Patient was cleared for discharge by Dr. Barajas. Patient will be discharged home today Exam Vital Signs (Last) Date Time Temp Pulse Resp B/P Pulse Ox O2 Delivery O2 Flow Rate FiO2 11/30/16 04:30 36.7 78 18 138/72 93 Room Air 11/28/16 04:38 1.00 Exam General: Patient is anxious about the possibility of going home. She was again seen earlier ambulating in the hallway.. HEENT: Head is atraumatic and normocephalic. Eyes: Pupils are equally round and reactive to light and accommodation. Extraocular muscles are intact. Sclera are white, anicteric. Subconjunctival mucosa is pink. NG tube has been removed. Ears are unremarkable. Oropharynx: There is no mucosal lesions, there is no thrush, there is no pharyngitis. Neck: Is supple, there are no nodes, or masses or tenderness. Chest: Is clear to auscultation and percussion. There are no rales, rhonchi, wheezes or rubs. Heart: Rate, rhythm is regular. There is no new murmur, rub or gallop. Abdomen: Bowel sounds are present. Abdomen is soft, with minimal tenderness, no organomegaly or masses were appreciated. Incision sites are covered with small dressings are clean dry and intact. There is tympany to percussion Extremities: Are symmetrical and well perfused. There is no edema, there is no cellulitis, no rash. Neurologic: There are no focal neurological deficits. Cranial nerves II through XII are intact. There are no sensory or motor deficits. Psychiatric: Patients mood is calm and she shows no sign of agitation. Genital: Deferred Rectal: Deferred Test 11/14/16 22:48 11/15/16 14:55 11/16/16 05:29 11/21/16 04:35 Prothrombin Time 11.3sec (8.1-12.5) Prothromb Time International Ratio 1.05ratio Lipase 31U/L (13-60) Blood Smear Pathologist Review Reticulocyte Count,Calculated 2.7% (0.6-2.6) Haptoglobin 209mg/dL (34-200) Lactate Dehydrogenase 338U/L (100-190) Direct Bilirubin 0.4mg/dL (0.0-0.3) Band Neutrophils % 3% (1-5) Test 11/22/16 05:10 11/25/16 09:54 11/28/16 04:38 11/30/16 04:48 Procalcitonin 0.24ng/mL (0.00-0.08) Urine Color Yellow (YELLOW) Urine Appearance Hazy (CLEAR,HAZY) Urine pH 7.0 (5.0-8.0) Urine Specific [place] 1.015 (1.003-1.035) Urine Protein Negativemg/dL (NEG,TRACE) Urine Glucose (UA) Negativemg/dL (NEGATIVE) Urine Ketones Negativemg/dL (NEGATIVE) Urine Occult Blood Negative (NEGATIVE) Urine Nitrite Negative (NEGATIVE) Urine Bilirubin Negative (NEGATIVE) Urine Urobilinogen Normalmg/dL (NORMAL) Urine Leukocyte Esterase Negative (NEGATIVE) Urine RBC 0-2/hpf (0-2) Urine WBC 0-5/hpf (0-5) Urine Epithelial Cells Occasional/hpf (NONE-MOD) Urine Crystals None seen (NONE SEEN) Urine Bacteria Few/hpf (NONE-FEW) Urine Hyaline Casts Occasional/lpf (NONE) Urine Granular Casts None seen (NONE SEEN) Urine Waxy Casts None seen (NONE SEEN) Urine Red Blood Cell Casts None seen (NONE SEEN) Urine White Blood Cell Casts None seen (NONE SEEN) Urine Mucus None seen (None Seen) Urine Trichomonas None seen (NONE SEEN) Urine Yeast None (NONE SEEN) Urinalysis Comment None Urine Culture Reflexed Not indicated Hold Purple Top Tube Received (Received) Phosphorus Level 3.9mg/dL (2.5-4.9) Hold Redfox Top Tube Received (Received) White Blood Count 7.0th/mm3 (3.8-10.1) Red Blood Count 3.59mil/mm3 (3.90-5.20) Hemoglobin 11.0g/dL (12.0-15.6) Hematocrit 35.1% (35.0-46.0) Mean Corpuscular Volume 97.8fL (81-100) Mean Corpuscular Hemoglobin 30.6pg (27.0-35.0) Mean Corpuscular Hemoglobin Concent 31.3% (32.0-37.0) Red Cell Distribution Width 14.8% (12.3-15.4) Platelet Count 154bil/L (150-400) Neutrophils (%) (Auto) 57.7% (40-74) Lymphocytes (%) (Auto) 30.4% (14-46) Monocytes (%) (Auto) 7.9% (4-12) Eosinophils (%) (Auto) 2.0% (0-5) Basophils (%) (Auto) 0.9% (0-3) Sodium Level 141mEq/L (134-144) Potassium Level 4.4mEq/L (3.5-5.2) Chloride Level 103mEq/L (97-108) Carbon Dioxide Level 27mmol/L (18-29) Blood Urea Nitrogen 18mg/dL (8-27) Creatinine 0.39mg/dL (0.57-1.00) Estimat Glomerular Filtration Rate 223mL/min (>59) Glucose Level 103mg/dL (60-99) Calcium Level 9.2mg/dL (8.5-10.1) Magnesium Level 2.0mg/dL (1.6-2.6) Total Bilirubin 1.0mg/dL (0.0-1.2) Aspartate Amino Transf (AST/SGOT) 25U/L (0-50) Alanine Aminotransferase (ALT/SGPT) 15U/L (0-32) Alkaline Phosphatase 79U/L (25-165) Total Protein 6.1g/dL (6.4-8.4) Albumin 3.1g/dL (3.4-5.0) Microbiology Results Stool gastrointestinal PCR panel was negative 2 Discharge Medications Discharge Medications Ascorbic Acid (Vitamin C) 1,000 Mg Tab.chew 1,000 MG PO DAILY (Reported) Aspirin (Aspirin) 81 Mg Tablet 81 MG PO DAILYWD (Reported) Atorvastatin Calcium (Atorvastatin Calcium) 10 Mg Tablet 10 MG PO HS (Reported) Ca Carb/D3/Argnin/Inos/Silicon (Bone Density Calcium + D Cplt) 1 Each Tablet 1 EACH PO BID (Reported) Carvedilol (Carvedilol) 25 Mg Tablet 25 MG PO BID (Reported) Furosemide (Furosemide) 20 Mg Tab 20 MG PO DAILY Prescribed by: FERNANDA BARAJAS DO Lactobacillus Acidophilus (Acidophilus Probiotic) 1 Mg Tablet 1 MG PO DAILY Prescribed by: VINITA HENDRICKSON MD Losartan Potassium (Losartan Potassium) 50 Mg Tablet 50 MG PO BID (Reported) Multivit-Min/FA/Lutein/Zeaxant (Macular Vitamin Tablet) 1 Each Tablet 2 EACH PO BID (Reported) Davidson Oil/[place]-3 Fatty Acids (Davidson Oil 1,000 mg Softgel) 1 Each Capsule 1 EACH PO DAILY (Reported) Ubidecarenone (Coq-10) 100 Mg Capsule 100 MG PO DAILY (Reported) Vit C/Kiara AC/Lut/Copper/Znox (Preservision Lutein Softgel) 1 Each Capsule 1 EACH PO BID (Reported) As needed Fluticasone Propionate (Fluticasone Propionate Nasal) 16 Gm [place].susp 1 SPRAY NASAL DAILY PRN PRN allergies (Reported) Omeprazole (Omeprazole) 20 Mg Capsule.dr 20 MG PO DAILY PRN PRN For Indigestion (Reported) Simethicone (Gas Relief) 180 Mg Capsule 180 MG PO BID PRN PRN GAS (Reported) Followup Plan Disposition: Patient is discharged home. He states she has much family support and family members will be staying with her for this upcoming week. Discharge Diet: Heart Healthy (May increase diet gradually as tolerated.) Discharge Activity: No restrictions (Patient may increase activity gradually as tolerated.) Follow-up Provider: Emy Gant MD Follow-up with PCP in: 1 week Provider: Farshad Barajas MD Follow-up in: 1 week Time spent Time spent on discharging this patient was greater than 35 minutes over half of which was involved in counseling and coordination of care. Chuck Ryan MD Nov 30, 2016 23:46
== END 2016-11-30 14:17 | disposition home or self-care (01) | DRG 336 ==
LOC: EDBD 22:25 → SED 22:25 → OSC 11-15 01:17
PROVIDERS: ADMIT Internal Medicine Infectious Disease; ATTEND Hospitalist
PROC: 0DNH4ZZ Release Cecum, Percutaneous Endoscopic Approach (ICD-10-PCS; principal; 2016-11-25 07:30)
DX: K56.5 Intestinal adhesions [bands] with obstruction (postinfection) (principal); I42.0 Dilated cardiomyopathy; I50.22 Chronic systolic (congestive) heart failure; I10 Essential (primary) hypertension; J43.9 Emphysema, unspecified; K21.9 Gastro-esophageal reflux disease without esophagitis; E78.5 Hyperlipidemia, unspecified; Z95.0 Presence of cardiac pacemaker; Z87.891 Personal history of nicotine dependence; F41.8 Other specified anxiety disorders